=== PATIENT | female | born 1950 | race Caucasian/White ===

== ENCOUNTER 2020-10-26 14:06 | Outpatient (CLI) | payer MEDICARE, OTHER, SELFPAY ==
--- NOTE | 2020-10-26 14:13 | XR_ITS ---
WS: [id number] SCREENING DEXA SCAN [facility] CLINICAL INFORMATION: [id number] COMPARISON: None. FINDINGS: The L1-L4 bone mineral density measures 0.800 g/cm2. This corresponds to a T score score of -3.2 and Z score of -1.4. Left femoral neck bone mineral density measures 0.747 g/cm2. This corresponds to a T score of -2.1 an d Z score of -0.5. Right femoral neck bone mineral density measures 0.819 g/cm2. This corresponds to a T score -1.5of an d Z score of 0.0. Mean femoral neck bone mineral density measures 0.783 g/cm2. This corresponds to a T score of -1.8 an d Z score of -0.2. XR/XR DEXA axial skeleton* [id number] IMPRESSION: Osteoporosis Patient's FRAX calculated 10 year probability for major osteoporotic fracture i s 29.8 % and osteoporotic hip fracture is 8.2%.
== END 2020-10-26 14:07 | disposition home or self-care (01) ==
LOC: RADWPI 14:12
PROVIDERS: PCP Family Medicine; Visit Provider Family Medicine
DX: M81.0 Age-related osteoporosis without current pathological fracture (principal)
CPT/HCPCS: 77080

== ENCOUNTER 2021-01-14 17:35 | Inpatient (IN) | payer MEDICARE, OTHER, SELFPAY ==
[2021-01-14 17:44] VITALS: BP 168/108; PULSE 90; RESP 15; TEMP 36.7; O2SAT 95; BMI 24.0
--- NOTE | 2021-01-14 17:46 | CTR_ITS ---
PROCEDURE INFORMATION: Exam: CT Chest Without Contrast; Diagnostic Exam date and time: 01/14/2021 5:53 PM Age: 70 years old Clinical indication: Injury or trauma; Lower; Blunt trauma (contusions or hematomas); Prior surgery; Surgery date: 6+ months; Surgery type: Pacer; Patient HX: Backwards fall from ladder - denies loc - C/O lbp and pelvic pain; Additional info: Fall/ pain low back /pelvis/ left hip. TECHNIQUE: Imaging protocol: Diagnostic computed tomography of the chest without contrast. Radiation optimization: All CT scans at this facility use at least one of these dose optimization techniques: automated exposure control; mA and/or kV adjustment per patient size (includes targeted exams where dose is matched to clinical indication); or iterative reconstruction. COMPARISON: No relevant prior studies available. RADIATION DOSE METRICS: Total DLP (mGy-cm): 1210.74 FINDINGS: Tubes, catheters and devices: AICD/Pacemaker device is present, and its leads are in appropriate position. Lungs: There several small noncalcified pulmonary nodules measuring up to 5 mm, recommend follow-up. Mild ground-glass opacity within the right posterior upper and lower lobe, question mild contusion. Pleural spaces: Scattered small regions of pleural thickening. Heart: Unremarkable. No cardiomegaly. No pericardial effusion. Aorta: Unremarkable. No aortic aneurysm. Lymph nodes: Unremarkable. No enlarged lymph nodes. Bones/joints: Left posteromedial rib osteophytes. Soft tissues: Unremarkable. IMPRESSION: 1. There several small noncalcified pulmonary nodules measuring up to 5 mm, recommend follow-up. 2. Mild ground-glass opacity within the right posterior upper and lower lobe, question mild contusion. COMMENTS: As per Fleischner Society guidelines for follow-up and management of pulmonary nodules: For patients at low risk (minimal or absent history of smoking and of other known risk factors), recommend follow-up chest CT at 12 months; if unchanged, no further follow-up. For patient at high risk (history of smoking or of other known risk factors), recommend initial follow-up chest CT at 6-12 months, then at 18-24 months if no interval change. PROCEDURE INFORMATION: Exam: CT Abdomen And Pelvis Without Contrast Exam date and time: 01/14/2021 5:53 PM Age: 70 years old Clinical indication: Injury or trauma; Lower; Blunt trauma (contusions or hematomas); Prior surgery; Surgery date: 6+ months; Surgery type: Pacer; Patient HX: Backwards fall from ladder - denies loc - C/O lbp and pelvic pain; Additional info: Fall/ pain low back /pelvis/ left hip. TECHNIQUE: Imaging protocol: Computed tomography of the abdomen and pelvis without contrast. Radiation optimization: All CT scans at this facility use at least one of these dose optimization techniques: automated exposure control; mA and/or kV adjustment per patient size (includes targeted exams where dose is matched to clinical indication); or iterative reconstruction. COMPARISON: No relevant prior studies available. RADIATION DOSE METRICS: Total DLP (mGy-cm): 1210.74 FINDINGS: Liver: Normal. No mass. Gallbladder and bile ducts: Normal. No calcified stones. No ductal dilation. Pancreas: Normal. No ductal dilation. Spleen: Normal. No splenomegaly. Adrenal glands: Normal. No mass. Kidneys and ureters: Normal. No hydronephrosis. Stomach and bowel: Mild colonic diverticulosis without evidence for acute diverticulitis. Appendix: No evidence of appendicitis. Intraperitoneal space: Unremarkable. No free air. No significant fluid collection. Vasculature: Mild to moderate aortic and iliac artery atherosclerotic calcification. Lymph nodes: Unremarkable. No enlarged lymph nodes. Urinary bladder: Unremarkable as visualized. Reproductive: Hysterectomy. Bones/joints: Mild acute L1 vertebral compression fracture with mild vertebral height loss. Degenerative disc and joint disease, with a left paracentral cranial migrating L1-L2 partially mineralized moderate disc extrusion. Soft tissues: Small fat protruding umbilical hernia. CT/CT chest abd pel wo con IMPRESSION: Mild acute L1 vertebral compression fracture with mild vertebral height loss. Radiation Dose CTDIVOL = (mGy): DLP = 1210.74~1210.74 (mGy-cm)
--- NOTE | 2021-01-14 17:46 | CTR_ITS ---
PROCEDURE INFORMATION: Exam: CT Head Without Contrast Exam date and time: 01/14/2021 5:53 PM Age: 70 years old Clinical indication: Injury or trauma; Blunt trauma (contusions or hematomas); Without loss of consciousness; Patient HX: Backwards fall from ladder - denies loc - C/O lbp and pelvic pain; Additional info: Fall off ladder TECHNIQUE: Imaging protocol: Computed tomography of the head without contrast. Radiation optimization: All CT scans at this facility use at least one of these dose optimization techniques: automated exposure control; mA and/or kV adjustment per patient size (includes targeted exams where dose is matched to clinical indication); or iterative reconstruction. COMPARISON: No relevant prior studies available. RADIATION DOSE METRICS: Total DLP (mGy-cm): 753.36 FINDINGS: Brain: Normal. No hemorrhage. Unremarkable white matter. No mass effect. Cerebral ventricles: No ventriculomegaly. Bones/joints: Unremarkable. No acute fracture. Paranasal sinuses: Visualized sinuses are unremarkable. No fluid levels. Mastoid air cells: Visualized mastoid air cells are well aerated. Soft tissues: Unremarkable. CT/CT head wo con* [id number] IMPRESSION: No acute intracranial abnormality. Radiation Dose CTDIVOL = (mGy): DLP = 753.36 (mGy-cm)
--- NOTE | 2021-01-14 17:46 | CTR_ITS ---
PROCEDURE INFORMATION: Exam: CT Cervical Spine Without Contrast Exam date and time: 01/14/2021 5:53 PM Age: 70 years old Clinical indication: Injury or trauma; Blunt trauma; Patient HX: Backwards fall from ladder - denies loc - C/O lbp and pelvic pain; Additional info: Fall off ladder TECHNIQUE: Imaging protocol: Computed tomography images of the cervical spine without contrast. Radiation optimization: All CT scans at this facility use at least one of these dose optimization techniques: automated exposure control; mA and/or kV adjustment per patient size (includes targeted exams where dose is matched to clinical indication); or iterative reconstruction. COMPARISON: No relevant prior studies available. RADIATION DOSE METRICS: Total DLP (mGy-cm): 400.65 FINDINGS: Vertebrae: No acute fracture. Normal alignment. Degenerative change is identified in the spine. There is disc space narrowing and osteophyte formation especially at C5/6 and C6/7. Soft tissues: Unremarkable. Lungs: Lung apices are normal. CT/CT cervical spin wo con* [id number] IMPRESSION: There is no evidence for fracture or facet dislocation. Radiation Dose CTDIVOL = (mGy): DLP = 400.65 (mGy-cm)
--- NOTE | 2021-01-14 17:50 | ED_ITS ---
HPI - Fall General: Chief Complaint: Fall Stated Complaint: BACK PAIN S/P FALL Time Seen by Provider: 01/14/21 17:37 History of Present Illness: HPI Narrative: The patient is a 70-year-old female with past medical history sick sinus syndrome, hypertension, cardiomyopathy and she has a pacemaker. She comes to the ER after a fall off of a ladder from the second step. She says she fell straight backwards and onto her left side landing on her buttocks. She says she felt a pop somewhere and has severe low back and pelvic pain. She does not recall if she hit her head. EMS placed her in a c-collar prior to arrival. She certainly has a distracting injury which is the severe pain to her low back. We will cart her off to CT for imaging. She is refusing pain medications including narcotic, and NSAIDs. MD complaint: fall Fall from: from height (distance) Fall witnessed: yes, by family Place fall occurred: home Loss of consciousness: None Prolonged down time: no Context: tripped/slipped Location of injury: back, abdomen, pelvis and buttocks Severity: severe Severity scale (1-10): 10 Quality: sharp Associated symptoms-after fall: Reports no associated symptoms; Denies abdominal pain, chest pain, confusion, difficulty walking, headache(s), neck pain or numbness Review of Systems General: Reports: 10 or more systems reviewed and unremarkable except in HPI and below Const: Denies: fatigue Eyes: Denies: change in vision, blurry vision or eye redness ENMT: Denies: throat pain, swelling of lips/tongue, ear or mastoid pain or nasal congestion Card: Denies: chest pain, palpitations, irregular heart rhythm, edema, dyspnea on exertion or orthopnea Resp: Denies: dyspnea, productive cough or non-productive cough GI: Denies: abdominal pain, diarrhea or GI cramping : Denies: flank pain, difficulty voiding, urinary frequency or urinary urgency Musc: Reports: back pain and joint pain; Denies: neck pain, extremity pain, joint redness, limited range of motion or muscle weakness Skin/Breast: Denies: rash, pruritus, erythema, skin pain or skin tenderness Neuro: Denies: headache(s), numbness in extremities, weakness in extremities, sensory changes, difficulty walking, dizziness, confusion or Slurred speech present Psych: Denies: anxiety or depression Endo: Denies: polyuria All/Imm: Denies: urticaria, throat swelling or tongue swelling PFSH ED PFSH: Medical History Cardiomyopathy HTN (hypertension) Pacemaker SSS (sick sinus syndrome) Surgical History (Updated 01/14/21 @ 21:57 by Fran Sam MD) History of hysterectomy Family History Other Diabetes Myocardial infarction Social History (Updated 01/14/21 @ 21:58 by Fran Sam MD) Smoking and tobacco status: never smoked Alcohol intake: never Substance/Drug Use: never Physical Exam Const: COMMON NORMALS: average body habitus, patient oriented x3, no limitations, healthy appearing, alert and well nourished GENERAL APPEARANCE: cooperative, comfortable, well kempt, well developed, in distress and anxious ORIENTATION/CONSCIOUSNESS: Yes awake, Yes oriented to person, Yes oriented to place and Yes oriented to time OTHER: in sevvere pain. Declines pain medications HENMT: COMMON NORMALS: normocephalic, external ears normal and Normal external nose present HEAD & SCALP: normal to inspection and normocephalic NOSE: Normal external nose present EXTERNAL EAR: Yes external ears normal MOUTH: Normal oral and palatal mucosa present THROAT: posterior oropharynx normal Eye: COMMON NORMALS: Equal, round and reactive pupils present and EOMs intact bilaterally GENERAL EYE: appearance normal, both eyes and all related structures PUPIL: Yes Equal, round and reactive pupils present Neck/C-Spine: COMMON NORMALS: full ROM, no lymphadenopathy, no meningeal signs and no JVD GENERAL: Yes normal visual inspection Lymph: LYMPHATIC: no lymphadenopathy noted Chest: COMMONS NORMALS: normal inspection of the chest and normal palpation of entire chest wall Resp: COMMON NORMALS: normal respiratory effort, No retractions, No use of accessory muscles, clear to auscultation bilaterally and percussion normal EFFORT & INSPECTION: Yes able to speak in complete sentences AUSCULTATION: clear to auscultation bilaterally PERCUSSION: percussion normal Cardio: COMMON NORMALS: no JVD, regular rate, regular rhythm, S1 normal heart sound present, S2 normal heart sound present and Peripheral pulses 2+ throughout RATE: regular rate RHYTHM: regular rhythm HEART SOUNDS: S1 normal heart sound present and S2 normal heart sound present PERIPHERAL PULSES: Peripheral pulses 2+ throughout GI: COMMON NORMALS: Normal to inspection, nondistended, normoactive bowel sounds present, Soft to palpation, non-tender and no masses INSPECTION: Yes normal to inspection PALPATION: Yes Soft to palpation : COMMON NORMALS: Yes no CVA tenderness BLADDER/KIDNEY EXAM: Yes no CVA tenderness Back/Pelvis: COMMON NORMALS: no CVA tenderness, thoracic and lumbar spine normal to inspection, no thoracic nor lumbar tenderness and thoraco-lumbar ROM normal OTHER: Severe tenderness to bilateral gluteus regions, pelvis, lumbar spine area and lower abdomen. Extremity: COMMON NORMALS: normal to inspection, full ROM, capillary refill normal, no joint enlargement and no pedal edema GENERAL: Yes normal exam except as noted Neuro: COMMON NORMALS: patient oriented x3, CN's II-XII intact bilaterally, moves all extremities, no focal motor deficits, no sensory deficits noted and gait normal SENSORIUM/ORIENTATION: Yes alert, Yes oriented to person, Yes oriented to place and Yes oriented to time MENINGEAL SIGNS: Yes no meningeal signs Psych: COMMON NORMALS: mental status grossly normal, Normal thought process present, cooperative, normal affect and speech normal APPEARANCE: Yes well kempt ATTITUDE: Yes calm SPEECH: Yes normal speech THOUGHT PROCESS: Normal thought process present Skin: COMMON NORMALS: no rashes or lesions noted GENERAL SKIN EXAM: no rashes or lesions noted Course Vital Signs: Vital signs: Vital Signs Temperature 98.1 F 01/14/21 17:44 Pulse Rate 83 01/14/21 23:26 Respiratory Rate 19 H 01/14/21 23:26 Blood Pressure 148/81 01/14/21 23:26 Pulse Oximetry 97 01/14/21 23:26 MDM - Fall MDM Narrative: Medical decision making narrative: This patient has a complicated course. She presented after a fall and had bowel incontinence and episodes of syncope while she has been here. No numbness or weakness in her lower extremities or saddle anesthesia. Normal rectal tone. CT head to tailbone is only positive for a compression fracture of L1. Discussed with spine surgeon at [facility] Dr. Bolton who does not think the compression fracture is likely to cause spinal cord compression and recommends admission here. The patient's troponin then came back elevated at 132 and 2-hour troponin at 252. Discussed with Dr. Rodriguez who recommended medical management and likely non- STEMI. She is also having palpitations which she does have chronically. She is not currently having chest pain in the ER but says sometimes it does come and go when she has been at home and after she got a dose of morphine here she had another episode of chest heaviness related to the administration of the medicine. Discussed with Dr. Murcia who recommended heparin, aspirin, and Plavix 300. He recommended clearing it with trauma surgery prior to administration based on her fall. Discussed with [facility] trauma surgeon Dr. Paez her case and given that she has been scanned and has no acute bleeding he said it is okay to give these medications as long as we monitor her CBC every [address] Sam who accepts to ICU and has been following the case as well. Lab Data: Labs: Lab Results 01/14/21 01/14/21 01/14/21 Range/Units 18:02 19:10 19:22 WBC 12.3 H (4.0-10.0) 10^3/ uL RBC 4.63 (4.1-5.3) 10^6/u L Hgb 13.9 (11.5-15.3) g/dL Hct 45.1 (37.0-47.0) % MCV 97.4 (81-99) fL MCH 30.0 (28.0-34.0) pg MCHC 30.8 (30.0-36.0) g/dL RDW 14.1 (12.1-15.1) % Plt Count 270 (130-400) 10^3/c mm MPV 9.3 (7.4-10.4) fL Neut % (Auto) 78.9 % Lymph % (Auto) 13.7 % [place] % (Auto) 5.8 % Eos % (Auto) 0.4 % Baso % (Auto) 0.5 % Neut # (Auto) 9.66 H (1.8-7.7) 10^3/u L Lymph # (Auto) 1.7 (0.8-4.8) 10^3/u L [place] # (Auto) 0.7 (0.2-0.9) 10^3/u L Eos # (Auto) 0.1 (0.0-0.8) 10^3/u L Baso # (Auto) 0.1 (0.0-0.1) 10^3/u L Nucleated RBC % (a uto) 0 % Nucleated RBCs # 0.0 /100WBC Sodium Cancelled Potassium Cancelled Chloride Cancelled Carbon Dioxide Cancelled Anion Gap Cancelled BUN Cancelled Creatinine Cancelled GFR Calculation Cancelled Glucose Cancelled Calculated Osmolal ity Cancelled Lactate (0.5-2.2) mmol/L Calcium Cancelled Total Bilirubin Cancelled AST Cancelled ALT Cancelled Alkaline Phosphata se Cancelled Creatine Kinase Cancelled Troponin T Baselin e (0-10) ng/L Troponin T 120 Min [place] (0-10) ng/L Delta Troponin T (0-10) ABS# NT-Pro-B Natriuret Pep (0-125) pg/mL Total Protein Cancelled Albumin Cancelled Globulin Cancelled TSH (0.27-4.20) uIU/ mL Urine Color Yellow (Yellow) Urine Appearance Clear (CLEAR) Urine pH 5 (5-7) Ur Specific Gravit y 1.020 (1.005-1.030) Urine Protein Neg (Negative) Urine Glucose (UA) Norm (Normal) Urine Ketones 1+ H (Negative) Urine Blood Trace H (Negative) Urine Nitrate Negative (Negative) Urine Bilirubin Neg (Negative) Urine Urobilinogen Norm (Negative) mg/dL Ur Leukocyte Pat ase Negative (Negative) Urine RBC 0-4 H (0-2) /hpf Urine WBC 0-4 H (0-5) /hpf Ur Squamous Epith Cells 0-4 H (0-5) /hpf Amorphous Sediment 2+ /hpf Urine Bacteria Trace (NONE) /hpf 01/14/21 01/14/21 01/14/21 Range/Units 19:22 21:28 21:28 WBC (4.0-10.0) 10^3/ uL RBC (4.1-5.3) 10^6/u L Hgb (11.5-15.3) g/dL Hct (37.0-47.0) % MCV (81-99) fL MCH (28.0-34.0) pg MCHC (30.0-36.0) g/dL RDW (12.1-15.1) % Plt Count (130-400) 10^3/c mm MPV (7.4-10.4) fL Neut % (Auto) % Lymph % (Auto) % [place] % (Auto) % Eos % (Auto) % Baso % (Auto) % Neut # (Auto) (1.8-7.7) 10^3/u L Lymph # (Auto) (0.8-4.8) 10^3/u L [place] # (Auto) (0.2-0.9) 10^3/u L Eos # (Auto) (0.0-0.8) 10^3/u L Baso # (Auto) (0.0-0.1) 10^3/u L Nucleated RBC % (a uto) % Nucleated RBCs # /100WBC Sodium 135 L Potassium 4.0 Chloride 102 Carbon Dioxide 23 Anion Gap 14.0 BUN 12 Creatinine 0.5 GFR Calculation 122.0 Glucose 121 H Calculated Osmolal ity 281 L Lactate (0.5-2.2) mmol/L Calcium 8.6 Total Bilirubin 0.3 AST 29 ALT 24 Alkaline Phosphata se 109 H Creatine Kinase 155 Troponin T Baselin e 132 H* (0-10) ng/L Troponin T 120 Min [place] 252.1 H (0-10) ng/L Delta Troponin T 120.1 H* (0-10) ABS# NT-Pro-B Natriuret Pep 565 H (0-125) pg/mL Total Protein 6.6 Albumin 3.9 Globulin 2.7 TSH 3.78 (0.27-4.20) uIU/ mL Urine Color (Yellow) Urine Appearance (CLEAR) Urine pH (5-7) Ur Specific Gravit y (1.005-1.030) Urine Protein (Negative) Urine Glucose (UA) (Normal) Urine Ketones (Negative) Urine Blood (Negative) Urine Nitrate (Negative) Urine Bilirubin (Negative) Urine Urobilinogen (Negative) mg/dL Ur Leukocyte Pat ase (Negative) Urine RBC (0-2) /hpf Urine WBC (0-5) /hpf Ur Squamous Epith Cells (0-5) /hpf Amorphous Sediment /hpf Urine Bacteria (NONE) /hpf 01/14/21 Range/Units 21:56 WBC (4.0-10.0) 10^3/ uL RBC (4.1-5.3) 10^6/u L Hgb (11.5-15.3) g/dL Hct (37.0-47.0) % MCV (81-99) fL MCH (28.0-34.0) pg MCHC (30.0-36.0) g/dL RDW (12.1-15.1) % Plt Count (130-400) 10^3/c mm MPV (7.4-10.4) fL Neut % (Auto) % Lymph % (Auto) % [place] % (Auto) % Eos % (Auto) % Baso % (Auto) % Neut # (Auto) (1.8-7.7) 10^3/u L Lymph # (Auto) (0.8-4.8) 10^3/u L [place] # (Auto) (0.2-0.9) 10^3/u L Eos # (Auto) (0.0-0.8) 10^3/u L Baso # (Auto) (0.0-0.1) 10^3/u L Nucleated RBC % (a uto) % Nucleated RBCs # /100WBC Sodium Potassium Chloride Carbon Dioxide Anion Gap BUN Creatinine GFR Calculation Glucose Calculated Osmolal ity Lactate 1.6 (0.5-2.2) mmol/L Calcium Total Bilirubin AST ALT Alkaline Phosphata se Creatine Kinase Troponin T Baselin e (0-10) ng/L Troponin T 120 Min [place] (0-10) ng/L Delta Troponin T (0-10) ABS# NT-Pro-B Natriuret Pep (0-125) pg/mL Total Protein Albumin Globulin TSH (0.27-4.20) uIU/ mL Urine Color (Yellow) Urine Appearance (CLEAR) Urine pH (5-7) Ur Specific Gravit y (1.005-1.030) Urine Protein (Negative) Urine Glucose (UA) (Normal) Urine Ketones (Negative) Urine Blood (Negative) Urine Nitrate (Negative) Urine Bilirubin (Negative) Urine Urobilinogen (Negative) mg/dL Ur Leukocyte Pat ase (Negative) Urine RBC (0-2) /hpf Urine WBC (0-5) /hpf Ur Squamous Epith Cells (0-5) /hpf Amorphous Sediment /hpf Urine Bacteria (NONE) /hpf Discharge Plan Discharge Patient Disposition: Admitted As Inpatient Admit Provider: Fran Sam Clinical Impression: NSTEMI (non-ST elevated myocardial infarction), Compression fracture Condition: Stable Coding Level of Care Code ED Real Estate Clerk for Chg Fwd Exam Comprehensive
[2021-01-14 18:37] VITALS: RESP 20
--- NOTE | 2021-01-14 18:44 | CTR_ITS ---
PROCEDURE INFORMATION: Exam: CT Lumbar Spine Without Contrast Exam date and time: 01/14/2021 6:44 PM Age: 70 years old Clinical indication: Injury or trauma; Blunt trauma (contusions or hematomas); Patient HX: Backwards fall from ladder - denies loc - C/O lbp and pelvic pain; Additional info: Fall/ back pain TECHNIQUE: Imaging protocol: Computed tomography images of the lumbar spine without contrast. Radiation optimization: All CT scans at this facility use at least one of these dose optimization techniques: automated exposure control; mA and/or kV adjustment per patient size (includes targeted exams where dose is matched to clinical indication); or iterative reconstruction. COMPARISON: No relevant prior studies available. RADIATION DOSE METRICS: Total DLP (mGy-cm): 8.19 FINDINGS: Vertebrae: Mild acute L1 vertebral compression fracture with mild vertebral height loss. Straightened lumbar curvature. Minimal soft lumbar degenerative alignment abnormalities. Discs/Spinal canal/Neural foramina: Moderate left paracentral partially mineralized L1-L2 cranial migrating disc extrusion with moderate left subarticular narrowing. L3-L5 disc bulges with mild stenosis. Soft tissues: Unremarkable. CT/CT lumbar spine wo con* [id number] IMPRESSION: 1. Mild acute L1 vertebral compression fracture with mild vertebral height loss. 2. Degenerative disc and joint disease, with a left paracentral cranial migrating L1-L2 partially mineralized moderate disc extrusion. Radiation Dose CTDIVOL = (mGy): DLP = 8.19 (mGy-cm)
[2021-01-14] MEDS: sodium chloride 0.9% 1,000 ML 999 ML IV (18:57)
--- NOTE | 2021-01-14 18:57 | ECG_ITS ---
[facility] Test Date: 2021-01-14 Pat Name: Jacquie Elliott Department: Room: Gender: Female Facilities Flight Check Pilot: : 1950 Requested By: Robert Shelley Order Number: [id number] Addie MD: Hortencia Murcia M.D. Measurements Intervals [place] Rate: 94 P: 65 [place]: 209 QRS: 113 QRSD: 154 T: 35 QT: 412 QTc: 517 Interpretive Statements SINUS RHYTHM WITH FREQUENT VENTRICULAR PREMATURE COMPLEXES WITH OCCASIONAL SUPRAVENTRICULAR PREMATURE COMPLEXES POSSIBLE LEFT ATRIAL ENLARGEMENT [-0.1mV P WAVE IN V1/V2] RIGHT BUNDLE BRANCH BLOCK [120+ ms QRS DURATION, UPRIGHT V1, 40+ ms S IN I/aVL/V4/V5/V6] LEFT POSTERIOR FASCICULAR BLOCK [QRS AXIS > 109, INFERIOR Q] No previous ECG available for comparison Electronically Signed On 01-14-2021 19:39:31 LOOSELEAF BINDER COVERER by Hortencia Murcia M.D. [id number]
[2021-01-14 19:35] LABS: Basophils # 0.1 10^3/uL (0.0-0.1); Basophils % 0.5 %; Eosinophils # 0.1 10^3/uL (0.0-0.8); Eosinophils % 0.4 %; Hematocrit 45.1 % (37.0-47.0); Hemoglobin 13.9 g/dL (11.5-15.3); Lymphocytes # 1.7 10^3/uL (0.8-4.8); Lymphocytes % 13.7 %; Mean Corpuscular HGB Conc 30.8 g/dL (30.0-36.0); Mean Corpuscular Volume 97.4 fL (81-99); Mean Platelet Volume 9.3 fL (7.4-10.4); Monocytes # 0.7 10^3/uL (0.2-0.9); Monocytes % 5.8 %; Neutrophils # 9.66 10^3/uL (1.8-7.7); Neutrophils % 78.9 %; Nucleated Red Blood Cells % 0 %; Platelet Count 270 10^3/cmm (130-400); Red Blood Count 4.63 10^6/uL (4.1-5.3); Red Cell Distribution Width 14.1 % (12.1-15.1); White Blood Count 12.3 10^3/uL (4.0-10.0)
[2021-01-14 19:36] VITALS: BP 166/115; PULSE 93; RESP 15; O2SAT 95
[2021-01-14 19:54] LABS: Add Urine Microscopic? YES; Bilirubin Urine Neg (Negative); Blood Urine Trace (Negative); Glucose Urine UA Norm (Normal); Ketones Urine 1+ (Negative); Leukocyte Esterase Urine Negative (Negative); Nitrate Urine Negative (Negative); Protein Urine Neg (Negative); Urine Appearance Clear (CLEAR); Urine Color Yellow (Yellow); Urobilinogen Urine Norm (Negative); pH Urine 5 (5-7)
[2021-01-14 19:55] LABS: Add Urine Culture? No; Amorphous Sediment Urine 2+ /hpf; Bacteria Urine TRACE /hpf; RBC Urine 0-4 /hpf (0-2); Squamous Epithelial Cell Urine 0-4 /hpf (0-5); WBC Urine 0-4 /hpf (0-5)
[2021-01-14 20:19] LABS: Troponin(5th) Baseline 132 ng/L (0-10)
--- NOTE | 2021-01-14 20:57 | ECG_ITS ---
[facility] Test Date: 2021-01-14 Pat Name: Jacquie Elliott Department: Room: Gender: Female Correspondence Dictator: : 1950 Requested By: Robert Shelley Order Number: [id number] Addie MD: Hortencia Murcia M.D. Measurements Intervals [place] Rate: 80 P: 72 [place]: 187 QRS: 111 QRSD: 162 T: 20 QT: 467 QTc: 539 Interpretive Statements SINUS RHYTHM RIGHT BUNDLE BRANCH BLOCK [120+ ms QRS DURATION, UPRIGHT V1, 40+ ms S IN I/aVL/V4/V5/V6] LEFT POSTERIOR FASCICULAR BLOCK [QRS AXIS > 109, INFERIOR Q] Compared to ECG 01/14/2021 19:11:13 Ventricular premature complex(es) no longer present Electronically Signed On 01-15-2021 22:44:48 CDT by Hortencia Murcia M.D. [id number]
[2021-01-14 21:17] VITALS: BP 152/87; PULSE 96; RESP 18; O2SAT 95
[2021-01-14 21:26] VITALS: RESP 22
[2021-01-14] MEDS: morphine 4 mg/mL SDV 1 mL 0.5 MG IVP (21:26)
--- NOTE | 2021-01-14 21:51 | PM.HP ---
Providers/Chief Complaint Primary Care Provider: Reddy Szymanski MD Chief Complaint: BACK PAIN S/P FALL History of Present Illness Jacquie Elliott is a 70 year old female with a past medical history of mild idiopathic cardiomyopathy echo on 2018 showed an EF of 55 to 60%, had a pacemaker placed in 1980 for sick sinus syndrome, last generator change was 05/23/2016, she was in the , has moved around the country a lot, currently settled in [place], she has been doing well, is fairly physically active, is actually renovating her kitchen. This evening when she was renovating her kitchen, she was up on the ladder, about on the second step, 2 feet off the ground, when she missed the first step going down, and fell primarily on her left hip she tells me, she denies any significant head trauma or any trauma anywhere else, her pain is primary centered in the left hip and the lower back, immediately upon falling, she had paresthesias down her bilateral lower extremities, was able to move her lower extremities, no saddle anesthesia, no perianal anesthesia, she thought she might have had urinary incontinence, but her checked and she did not, she spent roughly 30 minutes on the floor, which was the subfloor, before EMS arrived, and the emergency room she had extensive CTs, which did show mild acute L1 vertebral compression fracture with mild vertebral height loss, the ER physician checked for anal tone which is good, patient did have 2 bowel movements, which ER physician was concerned of, so the case was discussed with a spinal surgeon and they recommended that this is a L1 vertebral compression fracture, no significant evidence of spinal cord damage. During CT she did have 2 episodes of passing out. She is currently declining any pain medication, she is worried about the adverse side effects. Patient currently is alert oriented x3, answers most questions appropriately, however does have episodes of memory lapses, episodes of confusion, but follows all commands, no current urinary or bowel incontinence, no saddle or perianal anesthesia, she tells me that she feels weak all over, during my examination she has severe episodes of back spasm lasting for over a minute, it took me quite a long time to convince her to try 0.5 mg of morphine. In addition her troponin came back at 132, the rest of her blood work is pending at this point, EKG did not show any acute ST-T wave changes, ER physician is contacting Dr. Rodriguez Review of Systems Const: Denies: fever(s), chills, fatigue or malaise Eyes: Denies: change in vision or blurry vision ENMT: Denies: nasal congestion Card: Reports: syncope; Denies: chest pain, palpitations, edema or pre-syncope Resp: Denies: dyspnea, productive cough, non-productive cough or wheezing GI: Denies: abdominal pain, nausea, vomiting, hematemesis, diarrhea, constipation, hematochezia or melena : Denies: flank pain, dysuria or urinary frequency Musc: Reports: neck pain, back pain, extremity pain, joint pain and muscle weakness Skin/Breast: Denies: rash Neuro: Reports: headache(s), numbness in extremities, dizziness and confusion; Denies: vertigo Psych: Denies: anxiety or depression Endo: Denies: polyuria or polydipsia Medications/Allergies Home Medications Medication Instructions Recorded Confirmed Last Taken Type aspirin 81 mg tablet,delayed 81 mg PO .PRN tab 07/27/20 Unknown History release atenolol 25 mg tablet 25 mg PO DAILY 07/27/20 Unknown History cholecalciferol (vitamin D3) 1,250 PO 12/02/20 Unknown History mcg (50,000 unit) capsule Allergies Allergy/AdvReac Type Severity Reaction Status Date / Time ciprofloxacin Allergy Unknown Verified 12/02/20 10:55 codeine Allergy Unknown Verified 12/02/20 10:55 doxycycline Allergy Unknown Verified 12/02/20 10:55 sulfamethoxazole Allergy Unknown Verified 12/02/20 10:55 [From Bactrim] trimethoprim [From Bactrim] Allergy Unknown Verified 12/02/20 10:55 PFSH Acute PFSH: Medical History Cardiomyopathy HTN (hypertension) Pacemaker SSS (sick sinus syndrome) Surgical History (Updated 01/14/21 @ 21:57 by Fran Sam MD) History of hysterectomy Family History Other Diabetes Myocardial infarction Social History (Updated 01/14/21 @ 21:58 by Fran Sam MD) Smoking and tobacco status: never smoked Alcohol intake: never Substance/Drug Use: never Vitals/I&O/Wt Last Vital Signs Temp 98.1 F 01/14/21 17:44 Pulse 96 01/14/21 21:17 Resp 22 H 01/14/21 21:26 BP 152/87 01/14/21 21:17 Pulse Ox 95 01/14/21 21:17 Weight last 48 hrs Weight 63.503 kg Physical Exam Const: COMMON NORMALS: no acute distress and patient oriented x3 GENERAL APPEARANCE: cooperative and comfortable HENMT: COMMON NORMALS: normocephalic HEAD & SCALP: normocephalic Eye: COMMON NORMALS: Equal, round and reactive pupils present and EOMs intact bilaterally GENERAL EYE: appearance normal, both eyes and all related structures PUPIL: Yes Equal, round and reactive pupils present OTHER: Does have saccadic eye movements Neck/C-Spine: COMMON NORMALS: full ROM, no lymphadenopathy, no JVD and Thyroid normal THYROID: Thyroid normal Lymph: LYMPHATIC: no lymphadenopathy noted Resp: COMMON NORMALS: normal respiratory effort, No retractions, No use of accessory muscles and clear to auscultation bilaterally AUSCULTATION: clear to auscultation bilaterally Cardio: COMMON NORMALS: no JVD, regular rate, regular rhythm, S1 normal heart sound present, S2 normal heart sound present, No gallops present (Cardio), No clicks present (Cardio) and No murmurs present (Cardio) RATE: regular rate RHYTHM: regular rhythm HEART SOUNDS: S1 normal heart sound present and S2 normal heart sound present GI: COMMON NORMALS: Normal to inspection, nondistended, normoactive bowel sounds present, Soft to palpation, non-tender and No hepatosplenomegaly present PALPATION: Yes Soft to palpation and Yes No hepatosplenomegaly present Back/Pelvis: COMMON NORMALS: thoracic and lumbar spine normal to inspection THORACIC SPINE/UPPER BACK: Yes thoracic spinal tenderness, Yes paraspinal muscle tenderness and Yes paraspinal muscle spasm LUMBAR SPINE/LOWER BACK: Yes ROM limited, Yes pain with ROM, Yes lumbar spinal tenderness, Yes paraspinal muscle tenderness and Yes paraspinal muscle spasm SACROILIAC JOINTS: Yes SI joint(s) abnormal SI joint details: tender to palpation Extremity: COMMON NORMALS: normal to inspection, full ROM and no pedal edema Neuro: COMMON NORMALS: patient oriented x3, CN's II-XII intact bilaterally, moves all extremities and no focal motor deficits Psych: COMMON NORMALS: mental status grossly normal, Normal thought process present and cooperative THOUGHT PROCESS: Normal thought process present Urinary Catheter Management^: Rodriguez: Cath Placed During This Visit: yes Urinary Catheter Date of Insertion: 01/14/21 Urinary Catheter Time of Insertion: 19:17 Data : 01/14/21 18:02 01/14/21 21:28 A&P Assessment and plan (1) NSTEMI (non-ST elevated myocardial infarction): -No active complaints of chest pain -She denies falling on her chest -Baseline troponin I 132, EKG no acute ST-T wave changes Plan: -Aspirin, statin, therapeutic Lovenox -Trend troponins, serial EKGs, telemetry monitoring -Order cardiac echocardiogram -Discussed with cardiology based on clinical progress, troponins, EKGs, telemetry Status: Acute (2) Compression fracture of L1 lumbar vertebra: -ER physician checked anal tone, good anal tone, no saddle or perianal anesthesia, has strength bilaterally, but just has generalized weakness as she is in pain all over, no urinary incontinence, did have 2 large bowel movements, which were not considered bowel incontinence, discussed with spinal surgeon conservative management for now, no evidence of spinal cord injury -Can consider back brace -Pain control -Patient wants to minimize pain medications, as she suffers hallucinations for with a lot of medications -After long discussion she agrees to try 0.5 mg of morphine -We will also start her on intranasal calcitonin -PT OT Status: Acute (3) Fall: Likely has muscle spasms, musculoskeletal pain, lumbosacral pain related to her fall We will try to encourage patient to taking pain medication PT OT Status: Acute (4) Back pain: Status: Acute (5) Concussion: -During my examination she did have saccadic eye movements, answers most questions appropriate, follows commands, but does have memory lapses, does have episodes of confusion -Likely suffering early concussion, highly suspicious she did have head trauma although she denies it, neurochecks, aspiration precautions, seizure precautions keep head of bed elevated Status: Acute (6) Syncope: -2 episodes of syncope in the ER -Likely related to significant pain, as patient was refusing to take pain medication, sympathetic nervous system over activation -CT head negative for acute bleed -But will follow troponins, EKGs, telemetry, echo, carotid artery ultrasound Status: Acute Attestations Medical Necessity Statement*: Patient requires hospitalization, outpatient with observation, for fall, concussion, NSTEMI, L1 vertebral compression fracture Coding Level of Care Code Acute [facility] Diagnoses NSTEMI (non-ST elevated myocardial infarction) I21.4 Compression fracture of L1 lumbar vertebra S32.010A Fall W19.XXXA Back pain M54.9 Concussion S06.0X9A Syncope R55
[2021-01-14 22:10] LABS: Troponin 5 2HR 252.1 ng/L (0-10); Troponin 5 2HR Delta 120.1 ABS# (0-10)
[2021-01-14 22:17] LABS: Alanine Aminotransferase 24 U/L (0-33); Albumin Level 3.9 g/dL (3.5-5.2); Alkaline Phosphatase 109 IU/L (35-105); Aspartate Amino Transferase 29 U/L (0-32); Blood Urea Nitrogen 12 mg/dL (8-23); Calcium 8.6 mg/dL (8.5-10.5); Carbon Dioxide 23 mmol/L (22-29); Chloride 102 mmol/L (98-107); Creatine Phosphokinase 155 U/L (26-192); Globulin 2.7 g/dL (1.3-4.6); Glucose 121 mg/dL (65-115); NT Pro B Type Natriuretic Pept 565 pg/mL (0-125); Osmolality Calculated 281 mOsm/kg (285-295); Sodium 135 mmol/L (136-145); Thyroid Stimulating Hormone 3.78 uIU/mL (0.27-4.20); Total Bilirubin 0.3 mg/dL (0.15-1.2); Total Protein 6.6 g/dL (6.6-8.7)
[2021-01-14 22:21] LABS: Lactate (Lactic Acid level) 1.6 mmol/L (0.5-2.2)
[2021-01-14] MEDS: clopidogrel 300 mg Tablet PO (22:57)
[2021-01-14] MEDS: aspirin 325 mg Tablet PO (22:59)
[2021-01-14 23:26] VITALS: BP 148/81; PULSE 83; RESP 19; O2SAT 97
[2021-01-14] MEDS: heparin drip 25,000 UNIT/500 ML PREMIX 18 UNIT IV (23:35)
[2021-01-15] VITALS (198 sets, daily range): BP systolic 101–164; BP diastolic 51–106; PULSE 55–94; RESP 0–26; TEMP 36.5–37.4; O2SAT 90–99
[2021-01-15 00:06] LABS: INR 1.02 (0.8-1.2)
[2021-01-15 00:07] LABS: Partial Thromboplastin Time 30.3 SECONDS (23.9-36.7)
--- NOTE | 2021-01-15 01:21 | USCV_ITS ---
DemetriDc becerraley Age: 70 Gender: F : 1950 Exam Date: 01/15/2021 08:10 Ordering Phys: Fran Sam MD Technologist: Gely Marley [place] [facility] [place]: [place] Risk Factors: Previous Vascular Surgery: Right Brachial BP: / Left Brachial BP: / Right Left Velocity (cm/s) Spectral Plaque Velocity (cm/s) Spectral Plaque Syst/Diast Broadening Syst/Diast Broadening 66.00/ 17.10 Prox CCA 64.10 / 18.80 58.70/ 18.70 Mid CCA 56.40 / 18.80 58.70/ 16.60 Distal CCA 56.70 / 19.40 92.60/ 24.30 Prox ICA 50.40 / 20.50 77.10/ 28.00 Mid ICA 66.30 / 28.30 47.50/ 18.00 Distal ICA 68.30 / 23.30 113.60 ECA 96.60 1.40 ICA/CCA 1.07 Antegrade Vertebral Antegrade 40.40/ 14.00 cm/s 42.70/ 9.30 cm/s Tri Subclavian Tri 102.5 134.2 0 0 FINDINGS Moderate clumps of plaques at the bifurcations bilaterally Normal thickening in the common carotid arteries bilaterally Antegrade flow in the vertebral arteries bilaterally Normal Doppler flow velocities in the external and subclavian arteries bilaterally CONCLUSIONS Moderate plaques at the bifurcations bilaterally, consistent with less than 50% stenosis. Intimal thickening in the common carotid arteries bilaterally Dr Hortencia Murcia MD [facility] (Electronically Signed) Final Date: 15 January 2021 22:30 S
[2021-01-15] MEDS: dextrose 5%-sod chloride 0.45% 1,000 ML 75 ML IV ×2 (01:59→21:53)
[2021-01-15 04:27] LABS: Troponin 5 6HR Delta 75.6 ng/L (0-12)
[2021-01-15 04:28] LABS: Troponin 5 6HR 207.6 ng/L (0-10)
[2021-01-15 06:05] LABS: Basophils % 0.3 %; Eosinophils % 0.2 %; Hematocrit 40.3 % (37.0-47.0); Hemoglobin 13.2 g/dL (11.5-15.3); Lymphocytes # 1.8 10^3/uL (0.8-4.8); Lymphocytes % 18.2 %; Mean Corpuscular HGB Conc 32.8 g/dL (30.0-36.0); Mean Corpuscular Hemoglobin 29.5 pg (28.0-34.0); Mean Corpuscular Volume 90.2 fL (81-99); Mean Platelet Volume 9.5 fL (7.4-10.4); Monocytes # 0.7 10^3/uL (0.2-0.9); Monocytes % 6.6 %; Neutrophils # 7.35 10^3/uL (1.8-7.7); Neutrophils % 74.2 %; Nucleated Red Blood Cells % 0 %; Platelet Count 270 10^3/cmm (130-400); Red Blood Count 4.47 10^6/uL (4.1-5.3); Red Cell Distribution Width 14.1 % (12.1-15.1); White Blood Count 9.9 10^3/uL (4.0-10.0)
--- NOTE | 2021-01-15 06:12 | PC.NURSE ---
pt arrived from ER 0100. pt c/o pain, but refuses pain meds. asked multiple times about pain medicine and pt continues to refuse pain meds. pt refuses most prescribed meds and is even questioning the heparin gtt and d5 1/2ns fluids. pt states she sees swirly lines when she closes her eyes and every thing is jumping around and is very scary. pt states it must be whatever is in these drugs that you have running in me. i asked pt if she wanted me to turn off the medication, but she said no.
[2021-01-15 06:33] LABS: Alanine Aminotransferase 21 U/L (0-33); Albumin Level 3.7 g/dL (3.5-5.2); Alkaline Phosphatase 102 IU/L (35-105); Anion Gap 13.8 (5-19); Aspartate Amino Transferase 27 U/L (0-32); Blood Urea Nitrogen 9 mg/dL (8-23); Calcium 8.5 mg/dL (8.5-10.5); Carbon Dioxide 23 mmol/L (22-29); Chloride 105 mmol/L (98-107); Globulin 2.5 g/dL (1.3-4.6); Glucose 121 mg/dL (65-115); Magnesium 1.9 mg/dL (1.7-2.3); Osmolality Calculated 286 mOsm/kg (285-295); Phosphorus 2.6 mg/dL (2.5-4.5); Potassium 3.8 mmol/L (3.5-5.1); Sodium 138 mmol/L (136-145); Total Bilirubin 0.4 mg/dL (0.15-1.2); Total Protein 6.2 g/dL (6.6-8.7)
[2021-01-15 06:40] LABS: INR 0.96 (0.8-1.2)
[2021-01-15] MEDS: morphine 4 mg/mL SDV 1 mL 0.5 MG IVP ×2 (07:04→09:53)
[2021-01-15 07:41] LABS: Creatine Phosphokinase 162 U/L (26-192); NT Pro B Type Natriuretic Pept 1749 pg/mL (0-125)
--- NOTE | 2021-01-15 08:33 | P.CONIM_ITS ---
Providers/Reason For Consult Consulting Physican/Specialty*: THAO Murcia MD/cardiology Reason for Consult*: Patient with recent fall/syncope/ troponin T Attending Physician: Fran Sma MD Primary Care Provider: Reddy Szymanski MD History of Present Illness History of Present Illness Jacquie Elliott is a 70 year old female with a history of sick sinus syndrome, status post permanent pacer implantation in 1980, a revision in 2015, essential benign hypertension and mild cardiomyopathy, is admitted to the hospital through the emergency room where she presented with complaints of pain in the back and left hip. Patient apparently has been in her baseline state of health up until yesterday afternoon while she was working on a ladder, remodeling her kitchen, missed the last step of the ladder and fell on her left hip. She had a tingling and numbness of both leg. In the emergency room she had extensive x-rays and CAT scans. She was found to have compression fracture of the L1 vertebrae. Once neurosurgery was consulted. Conservative management was advised. Patient was found to have elevated troponin T in the emergency room. She was found to have a 2-hour delta of 120 and 6-hour delta of 25. According the patient, she has been having episodes of sharp pains in the chest ever since the fall. The pain radiates to the back between the shoulder blades. Last for few seconds and then goes away by itself. She had several of these episodes, since coming to the hospital. Patient has no history for coronary disease, myocardial infarction or congestive heart failure. She is known to have sick sinus syndrome. She also had some form of tachyarrhythmia. Sometime in the past, she had attempted RF ablation. Based on the patient's history, the tachycardia could not be induced in the lab and for that reason, she was left alone. She has been taking atenolol for many years and that seems to have helped her arrhythmias. She also is known to have elevated blood pressure. She has a history of idiopathic cardiomyopathy but the most recent echocardiogram done in 2019 revealed normal LV ejection fraction. Patient had a permanent pacer implantation in 1980. Since then, she had several revisions. The most recent revision was done in 2015. This is being followed up with a [facility]. Her pacemaker function was found to be appropriate. She has a [employer] device. Her father of myocardial infarction in his late 70s. No other relevant family history. Patient denies any smoking abuse or alcohol abuse. Review of Systems Narrative: CONSTITUTIONAL: No fever or chills. EYES: No blurring of vision or other visual disturbances lately. ENT: No hoarseness of voice, auditory disturbances or sore throat. CARDIOVASCULAR: As mentioned above. RESPIRATORY: No significant cough. GASTROINTESTINAL: No hematemesis or melena. GENITOURINARY: No dysuria or hematuria. INTEGUMENTARY: No skin rashes or history of skin cancer. NEURO: No transient ischemic attacks or amaurosis. PSYCHIATRIC: No history of psychosis or major depression. HEMATOLOGIC: No bleeding disorders or significant anemia. ENDOCRINE: No history of polyuria or polydipsia. MUSCULOSKELETAL: Back pain and hip pain ALLERGY/IMMUNOLOGY: As mentioned above. Meds/Allergies Home Medications and Allergies Home Medications Medication Instructions Recorded Confirmed Last Taken Type atenolol 25 mg tablet 25 mg PO DAILY@06 07/27/20 01/15/21 Unknown History cholecalciferol (vitamin D3) 1,250 1,250 mcg PO Q30D 12/02/20 01/15/21 Unknown History mcg (50,000 unit) capsule Allergies Allergy/AdvReac Type Severity Reaction Status Date / Time ciprofloxacin Allergy Unknown Verified 01/15/21 10:34 codeine Allergy Unknown Verified 01/15/21 10:34 doxycycline Allergy Unknown Verified 01/15/21 10:34 sulfamethoxazole Allergy Unknown Verified 01/15/21 10:34 [From Bactrim] trimethoprim [From Bactrim] Allergy Unknown Verified 01/15/21 10:34 Current Medications Current Medications Generic Name Dose Route Start Last Admin Trade Name Freq PRN Reason Stop Dose Admin Atorvastatin Calcium 40 mg 01/15/21 01:30 01/15/21 01:58 Atorvastatin 40 Mg Tablet PO Not Given BEDTIME MIKE Heparin Sodium/Sodium Chloride 25,000 unit in 500 mls @ 0 mls/hr 01/14/21 23:00 01/14/21 23:35 Heparin Drip IV 14.17 unit/kg/hr .Q0M MIKE 18 mls/hr Administration Protocol Per Protocol Dextrose/Sodium Chloride 1,000 mls @ 75 mls/hr 01/15/21 01:21 01/15/21 01:59 Dextrose 5%-Sod Chloride 0.45% IV 75 mls/hr .[id number] MIKE Administration Morphine Sulfate 0.5 mg 01/15/21 01:21 01/15/21 07:04 Morphine 4 Mg/Ml Sdv 1 Ml IVP 0.5 mg Q1H PRN Administration pain PFSH Acute PFSH: Medical History Cardiomyopathy HTN (hypertension) Pacemaker SSS (sick sinus syndrome) Surgical History History of hysterectomy Family History (Updated 01/15/21 @ 13:21 by Hortencia Murcia MD) Father CAD (coronary artery disease) of myocardial infarction his 70s Other Diabetes Myocardial infarction Social History Smoking and tobacco status: never smoked Alcohol intake: never Substance/Drug Use: never Vitals/I&O/Wt Last Vital Signs Temp 98.2 F 01/15/21 05:45 Pulse 77 01/15/21 06:00 Resp 15 01/15/21 04:35 BP 151/80 01/15/21 04:35 Pulse Ox 96 01/15/21 04:35 01/14/21 01/15/21 01/15/21 21:59 06:59 14:59 Intake Total Output Total Balance Weight last 48 hrs Weight 140 lb Physical Exam Narrative: EXAM NARRATIVE: GENERAL: The patient is alert and oriented times three. Not in any acute distress. HEENT: No significant pallor, icterus or lymphadenopathy. The pupils are symmetrical. Oral cavity: There are no mucous membrane lesions. Funduscopic examination: The fundus is not visualized NECK: Trachea appears to be central. No masses noted. No JVD or thyromegaly appreciated. No carotid bruit. RESPIRATORY: Chest is symmetrical. No intercostals muscle retraction or any accessory muscle activation. Diffuse chest wall tenderness. Breath sounds are heard bilaterally. No rales or rhonchi heard. No evidence of any consolidation. BREASTS: Deferred. HEART: The PMI is in the fifth left inter costal space just inside the midclavicular line. No palpable precordial events. S1 and S2 are normal. No S3 or S4 heard. No pericardial rub or any click heard. ABDOMEN: No vessel pulsations or distention. No tenderness. No organomegaly iqra reciated. No abdominal bruit. Bowel sounds are normally heard. : Deferred. RECTAL: Deferred. LYMPHATIC: No lymphadenopathy noted in the neck or groin. EXTREMITIES: No edema or cyanosis. No clubbing. The pulses are symmetrical bilaterally. The radial, femoral, dorsalis pedis and the posterior tibial pulses are palpated and found to be in good volume and amplitude. MUSCULOSKELETAL: No acute joint deformities or swelling. Back pain and left hip pain as mentioned above SKIN: There are no significant scars or skin rash noted. NEUROPSYCHIATRIC: The patient is alert and oriented x3. Appears to be in a good mood. The higher functions are grossly within normal limits. No tremors or rigidity noted. Urinary Catheter Management^: Rodriguez: Cath Placed During This Visit: yes Reason for Continuing Indwelling Catheter: Accurate Measurement of Urinary Output in Critically Ill Patients Urinary Catheter Date of Insertion: 01/14/21 Urinary Catheter Time of Insertion: 19:17 Data Labs: Other Labs: Laboratory Last Values WBC 9.9 10^3/uL (4.0- 10.0) 01/15/21 05:37 RBC 4.47 10^6/uL (4.1 -5.3) 01/15/21 05:37 Hgb 13.2 g/dL (11.5-1 5.3) 01/15/21 05:37 Hct 40.3 % (37.0-47.0 ) 01/15/21 05:37 MCV 90.2 fL (81-99) D 01/15/21 05:37 MCH 29.5 pg (28.0-34. 0) 01/15/21 05:37 MCHC 32.8 g/dL (30.0-3 6.0) D 01/15/21 05:37 RDW 14.1 % (12.1-15.1 ) 01/15/21 05:37 Plt Count 270 10^3/cmm (130 -400) 01/15/21 05:37 MPV 9.5 fL (7.4-10.4) 01/15/21 05:37 Neut % (Auto) 74.2 % 01/15/21 05:37 Lymph % (Auto) 18.2 % 01/15/21 05:37 [place] % (Auto) 6.6 % 01/15/21 05:37 Eos % (Auto) 0.2 % 01/15/21 05:37 Baso % (Auto) 0.3 % 01/15/21 05:37 Neut # (Auto) 7.35 10^3/uL (1.8 -7.7) 01/15/21 05:37 Lymph # (Auto) 1.8 10^3/uL (0.8- 4.8) 01/15/21 05:37 [place] # (Auto) 0.7 10^3/uL (0.2- 0.9) 01/15/21 05:37 Eos # (Auto) 0.0 10^3/uL (0.0- 0.8) 01/15/21 05:37 Baso # (Auto) 0.0 10^3/uL (0.0- 0.1) 01/15/21 05:37 Nucleated RBC % (a uto) 0 % 01/15/21 05:37 Nucleated RBCs # 0.0 /100WBC 01/15/21 05:37 PT 13.00 SECONDS (12 .1-14.9) 01/15/21 05:37 INR 0.96 (0.8-1.2) 01/15/21 05:37 APTT 30.3 SECONDS (23. 9-36.7) 01/14/21 23:40 Sodium 138 mmol/L (136-1 45) 01/15/21 05:37 Potassium 3.8 mmol/L (3.5-5 .1) 01/15/21 05:37 Chloride 105 mmol/L (98-10 7) 01/15/21 05:37 Carbon Dioxide 23 mmol/L (22-29) 01/15/21 05:37 Anion Gap 13.8 (5-19) 01/15/21 05:37 BUN 9 mg/dL (8-23) 01/15/21 05:37 Creatinine 0.5 mg/dL (0.5-0. 9) 01/15/21 05:37 GFR Calculation 122.0 mL/min (90- 130) 01/15/21 05:37 Glucose 121 mg/dL (65-115 ) H 01/15/21 05:37 Calculated Osmolal ity 286 mOsm/kg (285- 295) 01/15/21 05:37 Lactate 1.6 mmol/L (0.5-2 .2) 01/14/21 21:56 Calcium 8.5 mg/dL (8.5-10 .5) 01/15/21 05:37 Phosphorus 2.6 mg/dL (2.5-4. 5) 01/15/21 05:37 Magnesium 1.9 mg/dL (1.7-2. 3) 01/15/21 05:37 Total Bilirubin 0.4 mg/dL (0.15-1 .2) 01/15/21 05:37 AST 27 U/L (0-32) 01/15/21 05:37 ALT 21 U/L (0-33) 01/15/21 05:37 Alkaline Phosphata se 102 IU/L (35-105) 01/15/21 05:37 Creatine Kinase 162 U/L (26-192) 01/15/21 05:37 Troponin T Baselin e 132 ng/L (0-10) H* 01/14/21 19:22 Troponin T 120 Min sarah 252.1 ng/L (0-10) H 01/14/21 21:28 Delta Troponin T 120.1 ABS# (0-10) H* 01/14/21 21:28 Troponin T Hi Sens 6Hr 207.6 ng/L (0-10) H 01/15/21 01:28 Troponin T Hi Sens 6Hr Delta 75.6 ng/L (0-12) H* 01/15/21 01:28 NT-Pro-B Natriuret Pep 1749 pg/mL (0-125 ) H 01/15/21 05:37 Total Protein 6.2 g/dL (6.6-8.7 ) L 01/15/21 05:37 Albumin 3.7 g/dL (3.5-5.2 ) 01/15/21 05:37 Globulin 2.5 g/dL (1.3-4.6 ) 01/15/21 05:37 TSH 3.78 uIU/mL (0.27 -4.20) 01/14/21 21:28 Urine Color Yellow (Yellow) 01/14/21 19:10 Urine Appearance Clear (CLEAR) 01/14/21 19:10 Urine pH 5 (5-7) 01/14/21 19:10 Ur Specific Gravit y 1.020 (1.005-1.0 30) 01/14/21 19:10 Urine Protein Neg (Negative) 01/14/21 19:10 Urine Glucose (UA) Norm (Normal) 01/14/21 19:10 Urine Ketones 1+ (Negative) H 01/14/21 19:10 Urine Blood Trace (Negative) H 01/14/21 19:10 Urine Nitrate Negative (Negati ve) 01/14/21 19:10 Urine Bilirubin Neg (Negative) 01/14/21 19:10 Urine Urobilinogen Norm mg/dL (Negat kristin) 01/14/21 19:10 Ur Leukocyte Pat ase Negative (Negati ve) 01/14/21 19:10 Urine RBC 0-4 /hpf (0-2) H 01/14/21 19:10 Urine WBC 0-4 /hpf (0-5) H 01/14/21 19:10 Ur Squamous Epith Cells 0-4 /hpf (0-5) H 01/14/21 19:10 Amorphous Sediment 2+ /hpf 01/14/21 19:10 Urine Bacteria Trace /hpf (NONE) 01/14/21 19:10 A&P Assessment and plan (1) NSTEMI (non-ST elevated myocardial infarction): Patient may be kept on the IV heparin, p.o. Plavix and aspirin and statin. Will go ahead and do an echocardiogram today to evaluate LV function and rule out any other pathology. After reviewing the above and also based on the patient's clinical progress, further management decisions will be made. Status: Acute (2) SSS (sick sinus syndrome): Patient has been on atenolol for a long time. Apparently she had some intolerance to other medications. Details are not available. We may continue the atenolol and titrate the dose. Status: Acute (3) HTN (hypertension): Continue on the atenolol . Add topical nitrates, 1 inch every 6 hours to the anterior chest wall. Status: Acute Qualifiers: Hypertension type: essential hypertension Qualified Code(s): I10 - Essential (primary) hypertension (4) Compression fracture: Conservative management as per the primary. Status: Acute (5) Pacemaker: Since the pacemaker function seems to be appropriate. May not require any specific intervention. Status: Acute (6) Ventricular arrhythmia: I may add magnesium tablet to the current medications. Status: Acute Additional A&P Information Based on the patient's the clinical progress and the results of the above, further recommendations will be made. Patient may benefit from a cardiac catheterization, to further evaluate the coronary status and decide on further management. I will make the decision after reviewing the echocardiogram. Thank you for the opportunity to evaluate this patient and make these recommendations. Consult Attestations Medical Necessity Statement: Patient requires continued hospital stay for close monitoring and further management Coding Level of Care Code Acute Sap Pp Consultant for Chg Fwd History Detailed Exam Detailed Medical Decision Making High Complexity Diagnoses NSTEMI (non-ST elevated myocardial infarction) I21.4 SSS (sick sinus syndrome) I49.5 HTN (hypertension) I10 Hypertension type: essential hypertension Compression fracture Pacemaker Z95.0 Ventricular arrhythmia I49.9
[2021-01-15 09:16] LABS: Hematocrit 39.6 % (37.0-47.0); Hemoglobin 12.7 g/dL (11.5-15.3)
[2021-01-15] MEDS: aspirin 81 mg EC Tablet PO (09:16)
[2021-01-15] MEDS: atenolol 50 mg Tablet 25 MG PO (09:16)
[2021-01-15] MEDS: famotidine 20 mg Tablet PO (09:16)
[2021-01-15 09:50] LABS: Troponin T (5th) Once 162 ng/L (0-10)
[2021-01-15 09:52] LABS: Partial Thromboplastin Time 81.2 SECONDS (23.9-36.7)
--- NOTE | 2021-01-15 10:00 | USCV_ITS ---
Jacquie Elliott Age: 70 Gender: F : 1950 Exam Date: 01/15/2021 11:31 Ordering Phys: Fran Sam MD Technologist: Krystal Ramirez [place] [facility] [place]: NSTEMI BP: 151 / 80 HR: 60 Rhythm: Sinus Technical Quality: Fair MEASUREMENTS (Male / Female) Normal Values 2D ECHO LV Diastolic Diameter PLAX 5.3 cm 4.2 - 5.9 / 3.9 - 5.3 cm LV Systolic Diameter PLAX 4.0 cm LV Chamber Size 4.9 cm IVS Diastolic Thickness 1.0 cm 0.6 - 1.0 / 0.6 - 0.9 cm IVS Systolic Thickness 1.3 cm LVPW Diastolic Thickness 1.0 cm 0.6 - 1.0 / 0.6 - 0.9 cm LVPW Systolic Thickness 1.1 cm RV Chamber Size 2.0 cm LVOT Diameter 1.9 cm LV Ejection Fraction 2D Teich 46.1 % LA Diameter 3.0 cm LA Width 2.4 cm LA Height 5.2 cm RA Width 3.0 cm RA Height 5.0 cm Aorta at Sinotubular Diameter 2.0 cm M-MODE LV Diastolic Diameter MM 5.2 cm 4.2 - 5.9 / 3.9 - 5.3 cm LV Systolic Diameter MM 3.9 cm LV Ejection Fraction MM Teich 47.9 % IVS Diastolic Thickness MM 0.8 cm 0.6 - 1.0 / 0.6 - 0.9 cm IVS Systolic Thickness MM 1.1 cm LVPW Diastolic Thickness MM 1.1 cm 0.6 - 1.0 / 0.6 - 0.9 cm LVPW Systolic Thickness MM 1.5 cm RV Diastolic Diameter MM 0.9 cm Aortic Annulus Diameter 3.0 cm LA Ao Ratio MM 1.2 MV E Point Septal Separation 1.3 cm DOPPLER AV Peak Velocity 120.0 cm/s LVOT Peak Velocity 105.0 cm/s AV Area Cont Eq vti 2.3 cm squared AV Area Cont Eq pk 2.5 cm squared MV Area PHT 3.5 cm squared Mitral E to A Ratio 0.8 MV E' Velocity 28.5 cm/s Mitral E to MV E' Ratio 10.3 Mitral E to LV E' Lateral Ratio 9.4 Mitral E to LV E' Septal Ratio 11.7 TV Peak E Velocity 37.0 cm/s Right Atrial Pressure 8.0 mmHg PV Peak Velocity 60.0 cm/s QpQs Shunt Ratio 1.1 FINDINGS Left Ventricle Mild diffuse hypokinesis septum, anteroseptum and inferior wall segments. Overall ejection fraction around 46%.Grade I/IV diastolic dysfunction (abnormal relaxation filling pattern), normal to mildly elevated filling pressures. Right Ventricle The right ventricle is normal in size and function. Right Atrium Mildly increased right atrial size. Left Atrium Mildly increased left atrial size. Mitral Valve Mild mitral valve regurgitation. Thickened mitral valve. Aortic Valve No gross abnormalities noted Tricuspid Valve No gross abnormalities noted Pulmonic Valve Mild pulmonary valve regurgitation. Pericardium Normal pericardium without effusion. Aorta Normal ascending aorta dimension. CONCLUSIONS Normal LV size with diminished ejection fraction 46%. Wall motion of abnormalities as mentioned above. Mild biatrial enlargement. Thickened mitral valve. Mild mitral valve regurgitation. There is no pericardial effusion. There are no intracardiac masses. No previous study is available for comparison. Dr Hortencia Murcia MD FACC (Electronically Signed) Final Date: 15 January 2021 13:38 S
--- NOTE | 2021-01-15 10:22 | PC.NURSE ---
Heparin dose was not titrated at 0530 per protocol. Next ptt and titration is due at 1130. Nurse titrated heparin down by 1 ml/hr per protocol based on 0530 results. Starting protocol over. Next ptt scheudled for 1630
[2021-01-15] MEDS: nitroglycerin 1 gm/inch oint Pkt 1 INCH TOPICAL ×3 (10:54→21:53)
--- NOTE | 2021-01-15 12:49 | PC.NURSE ---
Patient complains of back pain related to the lumbar compression fracture. or 06/13. Patient either refuses paint medication or wants the smallest dose possible. Repositioning does provide some relief to patient and she tends to prefer left side lying.
--- NOTE | 2021-01-15 13:51 | PM.PN ---
Subjective Subjective: Interval history: Patient is stating that she has been very active throughout her life and never experienced these kind of symptoms before, she would like to avoid taking too many opioids, she was complaining of back pain while laying flat in her bed Rodriguez cath was draining clear urine, I also talked with Dr. Murcia this morning, she is currently being prepped for an angiogram No signs of spinal cord compression She does complain of intermittent chest pain Vitals/I&O/Wt Last Vital Signs Temp 99.1 F 01/15/21 11:30 Pulse 59 L 01/15/21 13:05 Resp 14 01/15/21 13:05 BP 110/63 01/15/21 13:05 Pulse Ox 96 01/15/21 13:05 01/14/21 01/15/21 01/15/21 21:59 06:59 14:59 Intake Total 178.8 / 178.8 Output Total 500 / 500 Balance -321.2 / -321.2 Weight last 48 hrs Weight 63.503 kg Physical Exam Narrative: EXAM NARRATIVE: Very pleasant female currently laying flat in her bed irritable secondary to back pain Saturating well on room air No active chest pain Normal hemodynamics No signs of spinal cord compression, Rodriguez cath draining clear urine, she has good sensation of medial side of her thighs, anal sphincter tone is normal No acute neurological deficits, S1, S2 sinus rhythm no murmur appreciated Bilateral breath sounds without adventitious rhonchi or crackles Abdomen soft nontender bowel sound present EOMI, PERRLA Urinary Catheter Management^: Rodriguez: Cath Placed During This Visit: yes Reason for Continuing Indwelling Catheter: Accurate Measurement of Urinary Output in Critically Ill Patients Urinary Catheter Date of Insertion: 01/14/21 Urinary Catheter Time of Insertion: 19:17 Data : 01/15/21 09:03 01/15/21 05:37 A&P Assessment and plan (1) Syncope: Status: Acute (2) Compression fracture: Status: Acute (3) Back pain: Status: Acute Additional A&P Information NSTEMI Currently awaiting an angiogram No active chest pain Continue heparin drip Aspirin Plavix atorvastatin No previous history of SD or CHF, echo revealed grade 1 diastolic dysfunction EF 46% mild diffuse hypokinesia of septum inferior wall and anterior septum, biatrial enlargement Will follow up with cardiology after angiogram Keep her n.p.o. for now Change her status to inpatient Compression fracture No signs of spinal cord compression She would not require Decadron at this point Continue calcitonin and opioids for back pain She will require back brace and physical therapy evaluation before discharge No acute intervention needed Syncopal event Stay of sick sinus syndrome Pacemaker evaluation Current heart rate around 60 with normal hemodynamic Her syncopal event most likely is NSTEMI related with prominent wall motion abnormality She is very active for her age PE less likely, CT chest revealed multiple pulmonary nodules 5 mm with groundglass opacities consistent with contusion Will request D-dimer Full code N.p.o. resume diet after angiogram DVT prophylaxis not needed currently on heparin drip, will resume Lovenox after angiogram Attestations Medical Necessity Statement*: Anticipating stay in the hospital cross more than 2 midnights will need angiogram Time Spent in Patient Care: (>than 50% of time spent in counselling and/or direct pt care on unit). 45mins Coding Level of Care Code Acute Predatory Game Hunter for Lilian Qureshi Diagnoses Syncope R55 Compression fracture Back pain M54.9
[2021-01-15] MEDS: predniSONE 20 mg Tablet 40 MG PO ×2 (14:41→21:53)
--- NOTE | 2021-01-15 15:09 | PC.OT ---
Occupational therapy eval attempted, patient resting soundly will attempt later.
--- NOTE | 2021-01-15 17:27 | PC.NURSE ---
Patient complains of pain, nausea, and is occaisonally dry heaving. Nurse has offered Zofran for nausea and morphine for pain. Patient refuses both.
[2021-01-15 17:39] LABS: D Dimer 0.91 ug/mIFEU (0-0.59)
[2021-01-15] MEDS: ondansetron 2 mg/ML SDV 2 mL 4 MG IVP (17:52)
--- NOTE | 2021-01-15 18:01 | PC.NURSE ---
Patient continues to dry heave and have nausea. Patient agreed to zofran.
[2021-01-15] MEDS: magnesium lactate 84 mg Tablet PO (18:26)
--- NOTE | 2021-01-15 18:31 | PC.NURSE ---
Patient has refused prn pain and nausea medication as well as the scheduled calcitonin and famotidine. Nurse has explained to the patient the reasoning for taking the meds and risks of not taking them. Pt still refuses.
[2021-01-15 23:53] LABS: Partial Thromboplastin Time 138.7 SECONDS (23.9-36.7)
[2021-01-16] VITALS (98 sets, daily range): BP systolic 89–139; BP diastolic 43–78; PULSE 55–82; RESP 1–35; TEMP 36.4–37.6; O2SAT 89–99
[2021-01-16] MEDS: predniSONE 20 mg Tablet 40 MG PO ×2 (01:55→07:58)
[2021-01-16 03:27] LABS: Basophils % 0.1 %; Hematocrit 41.1 % (37.0-47.0); Hemoglobin 13.5 g/dL (11.5-15.3); Lymphocytes # 0.9 10^3/uL (0.8-4.8); Lymphocytes % 11.8 %; Mean Corpuscular HGB Conc 32.8 g/dL (30.0-36.0); Mean Corpuscular Hemoglobin 29.8 pg (28.0-34.0); Mean Corpuscular Volume 90.7 fL (81-99); Mean Platelet Volume 9.8 fL (7.4-10.4); Monocytes # 0.1 10^3/uL (0.2-0.9); Monocytes % 1.1 %; Neutrophils # 6.26 10^3/uL (1.8-7.7); Neutrophils % 86.6 %; Nucleated Red Blood Cells % 0 %; Platelet Count 269 10^3/cmm (130-400); Red Blood Count 4.53 10^6/uL (4.1-5.3); Red Cell Distribution Width 14.1 % (12.1-15.1); White Blood Count 7.2 10^3/uL (4.0-10.0)
[2021-01-16 03:28] LABS: Alanine Aminotransferase 17 U/L (0-33); Albumin Level 3.5 g/dL (3.5-5.2); Alkaline Phosphatase 88 IU/L (35-105); Anion Gap 12.8 (5-19); Aspartate Amino Transferase 22 U/L (0-32); Blood Urea Nitrogen 7 mg/dL (8-23); Carbon Dioxide 24 mmol/L (22-29); Chloride 105 mmol/L (98-107); Globulin 2.5 g/dL (1.3-4.6); Glomerular Filtration Rate 157.8 mL/min (90-130); Glucose 161 mg/dL (65-115); Osmolality Calculated 287 mOsm/kg (285-295); Potassium 3.8 mmol/L (3.5-5.1); Sodium 138 mmol/L (136-145); Total Bilirubin 0.3 mg/dL (0.15-1.2)
[2021-01-16 03:35] LABS: Partial Thromboplastin Time 139.1 SECONDS (23.9-36.7)
[2021-01-16 03:40] LABS: INR 1.04 (0.8-1.2)
[2021-01-16] MEDS: nitroglycerin 1 gm/inch oint Pkt 1 INCH TOPICAL ×2 (03:57→09:17)
[2021-01-16 03:58] LABS: Creatine Phosphokinase 188 U/L (26-192)
[2021-01-16] MEDS: heparin drip 25,000 UNIT/500 ML PREMIX 16 UNIT IV (03:58)
[2021-01-16] MEDS: acetaminophen 325 mg Tablet 650 MG PO ×3 (05:43→23:23)
--- NOTE | 2021-01-16 06:34 | PC.NURSE ---
0600 CHG bath done groins prep for angiogram. tolerated well
[2021-01-16] MEDS: aspirin 81 mg EC Tablet PO (09:09)
[2021-01-16] MEDS: clopidogrel 75 mg Tablet PO (09:10)
[2021-01-16] MEDS: metoprolol succinate ER (24 HR) 25 mg Tablet 12.5 MG PO (09:10)
[2021-01-16] MEDS: magnesium lactate 84 mg Tablet PO (09:10)
[2021-01-16] MEDS: lisinopril 5 mg Tablet PO (09:13)
--- NOTE | 2021-01-16 09:53 | PC.CHAP ---
Pastoral Care Encounter/Spiritual Assessment Type of Contact [] Declined inhalation therapy aides teacher visit [] Patient/Family/Request visit [] Outpatient visit [] Follow-up visit [] Physician referral [] Code/Alert [x] Routine visit [] Staff referral [] Actively dying [] Patient sleeping [] Family support [] [] Out of room [] Palliative care [] [] Receiving care in room [] Pre-surgical visit [] Trauma [] Long length of stay [x] ICU visit [] Other: Relational/Emotional Strength [] Patient feels connected with others/family/visitors/staff [] Distress [] Loneliness/isolation [] Abandonment Spirituality of Patient [] Person of Becky [] Attends Restorationism of their Becky [] Believes in Prayer [] Reads Bible or Jewish materials [] There are Spiritual issues to be addressed Sales Architect Interventions [x] Prayer [] Active listening [] Non-anxious presence [] Spiritual/emotional support [] Crisis/trauma care [] Spiritual counseling [] Bereavement support [] Provided bereavement packet [] Provided Bible/devotional materials [] Provided toy/stuffed animal, coloring book to patient or family member [] Provided Communion [] Anointing/[place] [] Salvation [x] Completed spiritual assessment [] Other: Impact on Illness or Injury [] Angry [] Fearful [] Anxious [] Often cries [] Exhaustion [] Unable to work [] Unable to attend voodoo [] Unable to walk/stand [] Unable to read [] Unable to drive [] Unable to eat/drink [] Unable to sleep [] Unable to be with family [] Patient intubated [] Other: Summary Time spent with patient
[2021-01-16 10:51] LABS: Partial Thromboplastin Time 92.1 SECONDS (23.9-36.7)
--- NOTE | 2021-01-16 10:56 | XACV_ITS ---
Exam Room: [facility] Ht: 163 cm Wt: 64 kg BSA: 1.70 m2 Gender: Female : 1950 Any Known Allergies: Other Exam Priority: Routine Procedure(s): Procedure Description: Diagnostic procedure Procedure Description: Coronary Angiography Procedure Description: Pressure Wire Diagnostic Cath Status: Urgent Diagnostic Findings * CX has minor luminal irregularities. * RCA has minor luminal irregularities. * Mid Left Anterior Descending Coronary Artery: Moderate 40% stenosis, JOSE: 3 flow. * LM has 0% stenosis. * Coronary angiography shows right dominance. Interventional Findings * Procedure detail: We engaged left main artery using XB 3.5 guide catheter. IV heparin was used to maintain an ACT above 250 seconds. After zeroing and equalization, pressure wire was advanced past the mid LAD stenosis and we performed FFR. It was non ischemic with a value of 0.94. At this time final angiogram was performed that showed excellent stent expansion, no residual stenosis and JOSE-3 flow. Pressure wire and guide catheter were removed. Hemostasis was obtained with TR band. Patient left the Chamfering Machine Operator in a stable condition. Conclusions 1. There is moderate coronary artery disease in LAD. FFR negative for ischemia. Recommendations * Transfer to [facility]. * Statin therapy and aspirin. * Outpatient cardiology follow up. Interventional RX Recommendation: medical therapy and/or counseling Diagnostic RX Recommendation: medical therapy and/or counseling Anticoagulation: Heparin Pressures Phase:Rest AO : 134 / 65 ( 92 ) @ 7:08:00 AM Clinical Evaluation EBL: 5mL-10mL Procedural Details Procedure Consent Obtained. Pre-Procedure Time Out. Identified patient by full name and date of as verbalized by the patient/guarantor. Does the consent match the physician's order: Yes. Accurate & Complete Informed Consent: Yes. Inpatient/Outpatient History & Physical on Chart: Yes. If H&P is completed, is and addenduem needed: No; If yes, is the addendum complete: N/A. Visualize and Verify Site with Patient/Guarantor: N/A. Relevant Radiology Images available: N/A. Pre-op teaching completed and patient verbalized understanding. The risks, benefits, and alternatives of sedation and/or procedure were discussed by physician. The patient agrees to continue. Procedure started. Correct patient, site and procedure confirmed by cath team. [facility] Clinical Fraility Score: 4: Vulnerable. Chamfering Machine Operator Indications: ACS > 24 hours. Chest Pain Symptom Assessment: Atypical Angina. Cardiovascular Instability: No. PERRLA. Strong, equal hand shuttle fitting supervisor bilaterally. Lungs clear x 5 lobes. IV Site on Arrival: 18 gauge in the left anticubital. IV Site on Arrival: 20 gauge in the right anticubital. IV Fluids: 0.9% NaCl at KVO. 0 mL infused prior to medical lab technician. Oxygen started at 2liters/min via nasal canula. bilateral groins was prepped with chloroprep then draped in the usual sterile fashion. right radial was prepped with chloroprep then draped in the usual sterile fashion. Baseline sample Acquired. HR: 94 BPM. Physician scrubbed in. Immediate Pre-Procedure Time Out. Correct Patient: Yes; Correct Procedure: Yes; Correct Site: Yes; Correct Patient Position: Yes; Correct Supplies: Yes; Dried Flammable Prep: Yes; Blood Products Available: N/A;. Equipment: 6F - Radial. Cardiac Cath Pack. ACIST Manifold Kit Model BT 2000. Heparinized Saline (2 units/mL), 1000 mL bag. Lidocaine 1% infiltrated to the right radial. Arterial access obtained. A 5 marshallese TIG catheter in over wire. Multiple views taken of left coronary artery. Catheter redirected to the RCA. Multiple views taken of right coronary artery. Catheter removed over the exchange wire. Inventory is CRD 6 FR XB 3.5 GUIDE. 6 marshallese XB 3.5 guide catheter was inserted over the wire. FFR guidewire was advanced through the guide catheter to lesion in the mid LAD. An FFR value of 0.99 was obtained for a lesion located at Mid LAD. Fractional flow reserve measurements obtained. Wire out. Guide catheter out. Physician scrubbed out. A TR Band was successful obtaining hemostatsis at the Right Radial artery insertion site. TR band placed. Hemostasis obtained. Post Procedure: Pulses reassessed and unchanged. PERRLA. Strong, equal hand shuttle fitting supervisor bilaterally. No VTE prophylaxis required. Medication's Wasted: Lidocaine 1% = 18 mL. Medication's Wasted: Nitro = 49.8 mg. Medication's Wasted: Heparin = 4000 units. Medication's Wasted: Other = 71 mg. Total IV fluids: 50 mL. Contrast type used: Omnipaque 300 mgI/mL, 500 mL bottle. Post-op diagnosis: moderate mid LAD stenosis. Complications: none. Estimated blood loss: 5mL-10mL. Procedure completed. Patient transferred by bed to ICU. Vital chart was stopped. Access Site Site: Right Radial artery Sheath Size: 6 Fr Hemostasis Method: TR Band Hemostasis Success: Successful Procedure Medications Start: 12:07 PM Stop: 12:07 PM Medication: Versed Amount: 1 mg Route: I.V. Start: 12:07 PM Stop: 12:07 PM Medication: Fentanyl Amount: 50 mcg Route: I.V. Start: 12:07 PM Stop: 12:07 PM Medication: Nitrogylcerin Amount: 200 mcg Route: Topical Start: 12:08 PM Stop: 12:08 PM Medication: Fentanyl Amount: 50 mcg Route: I.V. Start: 12:08 PM Stop: 12:08 PM Medication: Heparin Amount: 3000 units Route: I.V. Start: 12:19 PM Stop: 12:19 PM Medication: Heparin Amount: 4000 units Route: I.V. Start: 12:19 PM Stop: 12:19 PM Medication: Versed Amount: 1 mg Route: I.V. I, the attending physician, have reviewed and verified all procedure medications. Yes, all medications given per verbal order History/Risk Factors Hypertension: Yes Dyslipidemia: No Peripheral Arterial Disease (PAD): No Myocardial Infarction (CT): Yes Obesity: No Renal Disease: No Tobacco Use: Never Prior Interventions PCI: No CABG: No Valve Surgery: No Report Signatures Finalized by Chinedu Rodriguez MD on 01/22/2021 03:58 PM
[2021-01-16] MEDS: dextrose 5%-sod chloride 0.45% 1,000 ML 75 ML IV (11:18)
--- NOTE | 2021-01-16 11:38 | PC.NURSE ---
PTT resulted high (92). Titrated down per protocol. See MAR
--- NOTE | 2021-01-16 11:45 | PC.NURSE ---
Transferred to Kindergarten Tutor Uday RN came to ICU, Pt transferred to builder's labourer by bed.
--- NOTE | 2021-01-16 12:00 | W.PM.OPSUD ---
Surgery/Procedure H&P Update DATE OF PROCEDURE: January 16, 2021 DATE H&P PERFORMED: 01/15/21 H&P UPDATE INFORMATION: I have reviewed H&P completed within last 30 days, I have examined patient prior to procedure and No changes to prior documentation PREOP DIAGNOSIS: NSTEMI PRIMARY INDICATION FOR PROCEDURE: NSTEMI PLANNED PROCEDURE: Left heart cath with possible percutaneous coronary intervention PHYSICAL EXAM: alert, oriented x 3 and clear to auscultation bilaterally AIRWAY EVAL/ANESTHESIA PLAN: ASA III, Risks, benefits & alternatives of sedation and/or procedure discussed and Patient agrees to continue as planned
--- NOTE | 2021-01-16 12:53 | PC.NURSE ---
Pt to ICU Pt transferred back to ICU by VALENCIA Frye. Pt resting in bed with at bedside. Vital signs stable: BP:107/61, O2:95% on RA, HR:64, Temp: 98.1 orally. TVAR band on right wrist placed in label sewer. Capillary refill to fingers on right hand. Heparin drip stopped per physician's orders. Pt denies pain at this time. Will continue to monitor.
--- NOTE | 2021-01-16 13:51 | PC.NURSE ---
Post op monitoring completed. Vitals remained within normal limits and were charted within the vitals monitoring worklist. No signs of bleeding from access site on wrist. Pt is resting comfortably at this time.
--- NOTE | 2021-01-16 14:33 | PM.PN ---
Subjective Subjective: Interval history: No overnight events patient is chest pain-free waiting for an angiogram today Her back pain is well controlled Adequate urine output no leukocytosis she has stayed afebrile Normal hemodynamics Vitals/I&O/Wt Last Vital Signs Temp 99.1 F 01/16/21 13:34 Pulse 65 01/16/21 14:00 Resp 14 01/16/21 14:00 BP 121/63 01/16/21 14:00 Pulse Ox 93 01/16/21 14:00 01/15/21 01/16/21 01/16/21 22:59 06:59 14:59 Intake Total 1222.967 / 1401.767 198.233 / 6292.983 5873.533 / 1232.533 Output Total 425 / 925 700 / 1625 975 / 975 Balance 797.967 / 476.767 -501.767 / -25.000 257.533 / 257.533 Weight last 48 hrs Weight 63.503 kg Physical Exam Narrative: EXAM NARRATIVE: Patient was laying comfortably in her bed in left lateral position no active back pain no chest pain S1, S2 no murmur appreciated No signs of heart failure Abdomen soft nontender bowel sound present EOMI, PERRLA No neurological deficit No acute respite distress Very pleasant during my evaluation No lower extremity edema gangrene or ulcer Urinary Catheter Management^: Rodriguez: Cath Placed During This Visit: yes Reason for Continuing Indwelling Catheter: Accurate Measurement of Urinary Output in Critically Ill Patients Urinary Catheter Date of Insertion: 01/14/21 Urinary Catheter Time of Insertion: 19:17 Data : 01/16/21 01:54 01/16/21 01:54 A&P Assessment and plan (1) Compression fracture: Status: Acute (2) Syncope: Status: Acute (3) NSTEMI (non-ST elevated myocardial infarction): Status: Acute (4) Compression fracture of L1 lumbar vertebra: Status: Acute Additional A&P Information NSTEMI Mildly reduced EF with hypokinesia noted on echo No recurrence of chest pain, waiting for an angiogram today We will start her diet after her angiogram No recurrence of symptoms Continue ACS protocol Compression fracture L1 No signs of spinal cord compression Her back brace has been arranged will work with physical therapy before her discharge Syncope Dimer not that high according to her age Currently anticoagulated with heparin Will request CTA before discharge However ventricular arrhythmia is a high probability for her syncopal event considering low EF and NSTEMI No arrhythmia noted during her hospitalization Full code Start cardiac diet after the procedure Currently anticoagulated with heparin start DVT prophylaxis after her angiogram Attestations Medical Necessity Statement*: Awaiting an angiogram today, will get physical therapy continue inpatient hospitalization Time Spent in Patient Care: 30mins Coding Level of Care Code Acute Electrophysiology Scientist for g Fwd Diagnoses Compression fracture Syncope R55 NSTEMI (non-ST elevated myocardial infarction) I21.4 Compression fracture of L1 lumbar vertebra S32.010A
--- NOTE | 2021-01-16 16:54 | PC.NURSE ---
TR Band TR band removed per physician's orders and protocol. (16ml of air in TR band) -1453: 2mL of air removed. No bleeding noted -1510: 2mL of air removed. No bleeding noted. -1530: 2mL of air removed. No bleeding noted. -1545: 2mL of air removed. No bleeding noted at site. -1600: 2mL of air removed. No bleeding noted. -1615: 2mL of air removed. No bleeding noted. -1630: 2mL of air removed. No bleeding noted. -1645: 2mL of air removed. No bleeding noted. TR Band removed at 1645 and gauze and coban put in place. No bleeding at the site and pt has no complaints of pain. at bedside and vital signs remain stable.
--- NOTE | 2021-01-16 18:25 | PC.NURSE ---
END OF SHIFT SUMMARY Pt denied chest pain, SOB, lungs sounds noted to be diminished. Last bowel movement being 01/14. No edema to lower legs. Pt urine output this shift noted to be 1575mL. Pt reported slight nausea this morning, refused prn zofran. Heparin drip discontinued this am at 1145. Pt transferred to Leakage Tester at 1145- refer to physician's note. TR band removed at 1645, no bleeding noted. , Ino visited for most of the day as well. Pt worked with OT, as well as Physical Therapy earlier this afternoon and walked about 50 feet. Pt consumed 50% of her dinner and drank 120mL while sitting up on side of bed. Pt complains of pain in lower back and requested half of the ordered dose of PRN tylenol. Pain rated 8 on a scale of 1-10. Pt received 325mg of Tylenol. Pt resting in bed on right side watching TV. Shift report given at bedside to VALENCIA Santos by this nurse.
[2021-01-16] MEDS: enoxaparin 40 mg/0.4 mL Syringe SUBCUT (20:34)
[2021-01-17] VITALS (14 sets, daily range): BP systolic 111–145; BP diastolic 56–80; PULSE 55–75; RESP 12–20; TEMP 36.6–37.1; O2SAT 94–99
[2021-01-17] MEDS: morphine 4 mg/mL SDV 1 mL 0.5 MG IVP ×3 (02:03→10:48)
[2021-01-17 04:06] LABS: Basophils % 0.2 %; Hematocrit 39.6 % (37.0-47.0); Hemoglobin 12.7 g/dL (11.5-15.3); Lymphocytes # 2.4 10^3/uL (0.8-4.8); Lymphocytes % 14.2 %; Mean Corpuscular HGB Conc 32.1 g/dL (30.0-36.0); Mean Corpuscular Hemoglobin 29.4 pg (28.0-34.0); Mean Corpuscular Volume 91.7 fL (81-99); Mean Platelet Volume 9.3 fL (7.4-10.4); Monocytes # 1.2 10^3/uL (0.2-0.9); Neutrophils # 13.27 10^3/uL (1.8-7.7); Neutrophils % 78.1 %; Nucleated Red Blood Cells % 0 %; Platelet Count 252 10^3/cmm (130-400); Red Blood Count 4.32 10^6/uL (4.1-5.3); Red Cell Distribution Width 14.2 % (12.1-15.1)
[2021-01-17 04:35] LABS: Alanine Aminotransferase 14 U/L (0-33); Albumin Level 3.4 g/dL (3.5-5.2); Alkaline Phosphatase 75 IU/L (35-105); Anion Gap 12.3 (5-19); Aspartate Amino Transferase 16 U/L (0-32); Blood Urea Nitrogen 11 mg/dL (8-23); Calcium 8.9 mg/dL (8.5-10.5); Carbon Dioxide 26 mmol/L (22-29); Chloride 105 mmol/L (98-107); Globulin 2.3 g/dL (1.3-4.6); Glomerular Filtration Rate 157.8 mL/min (90-130); Glucose 98 mg/dL (65-115); Osmolality Calculated 289 mOsm/kg (285-295); Potassium 3.3 mmol/L (3.5-5.1); Sodium 140 mmol/L (136-145); Total Bilirubin 0.3 mg/dL (0.15-1.2); Total Protein 5.7 g/dL (6.6-8.7)
[2021-01-17] MEDS: aspirin 81 mg EC Tablet PO (08:22)
[2021-01-17] MEDS: lisinopril 5 mg Tablet PO (08:23)
[2021-01-17] MEDS: metoprolol succinate ER (24 HR) 25 mg Tablet 12.5 MG PO (08:24)
[2021-01-17] MEDS: clopidogrel 75 mg Tablet PO (08:24)
--- NOTE | 2021-01-17 09:08 | PC.CHAP ---
Pastoral Care Encounter/Spiritual Assessment Type of Contact [] Declined pepper picker visit [] Patient/Family/Request visit [] Outpatient visit [] Follow-up visit [] Physician referral [] Code/Alert [x] Routine visit [] Staff referral [] Actively dying [] Patient sleeping [] Family support [] [] Out of room [] Palliative care [] [] Receiving care in room [] Pre-surgical visit [] Trauma [] Long length of stay [x] ICU visit [] Other: Relational/Emotional Strength [] Patient feels connected with others/family/visitors/staff [] Distress [] Loneliness/isolation [] Abandonment Spirituality of Patient [] Person of Becky [] Attends Rastafarian of their Becky [] Believes in Prayer [] Reads Bible or Mosque materials [] There are Spiritual issues to be addressed Granulator Interventions [x] Prayer [x] Active listening [x] Non-anxious presence [x] Spiritual/emotional support [] Crisis/trauma care [] Spiritual counseling [] Bereavement support [] Provided bereavement packet [] Provided Bible/devotional materials [] Provided toy/stuffed animal, coloring book to patient or family member [] Provided Communion [] Anointing/[place] [] Salvation [x] Completed spiritual assessment [] Other: Impact on Illness or Injury [] Angry [] Fearful [] Anxious [] Often cries [] Exhaustion [] Unable to work [] Unable to attend jain [] Unable to walk/stand [] Unable to read [] Unable to drive [] Unable to eat/drink [] Unable to sleep [] Unable to be with family [] Patient intubated [] Other: Summary patient didnt have easy night.. first night truly experienced pain.. fall didnt damage spine but there is healing that will take time. Time spent with patient 10 min
--- NOTE | 2021-01-17 09:39 | PC.NURSE ---
DC JOHNSON Johnson catheter removed per 's orders. 250 mL removed from johnson bag. 10ml of water removed from bulb. Pt asked to take a deep breath, johnson removed during exhale. Pt tolerated very well. Pt now sitting on side of bed eating breakfast. Will continue to monitor.
--- NOTE | 2021-01-17 09:55 | PM.PN ---
Subjective Subjective: Interval history: She underwent coronary angiogram via right radial yesterday by Dr. Rodriguez Medications: Reviewed: Yes Vitals/I&O/Wt Last Vital Signs Temp 97.8 F 01/17/21 02:00 Pulse 63 01/17/21 08:00 Resp 16 01/17/21 08:00 BP 135/62 01/17/21 08:00 Pulse Ox 97 01/17/21 08:00 01/16/21 01/17/21 01/17/21 22:59 06:59 14:59 Intake Total 240 / 1481.533 120 / 120 Output Total 1999 / 2974 200 / 3175 250 / 250 Balance -1760 / -1493.467 -200 / -1693.467 -130 / -130 Physical Exam Const: COMMON NORMALS: no acute distress, patient oriented x3 and alert GENERAL APPEARANCE: cooperative, comfortable, well kempt and well hydrated HENMT: COMMON NORMALS: hearing grossly normal bilaterally and external ears normal FACE & SINUS: normal facial exam EXTERNAL EAR: Yes external ears normal Eye: COMMON NORMALS: EOMs intact bilaterally and no scleral icterus GENERAL EYE: appearance normal, both eyes and all related structures ALIGNMENT: Yes alignment normal Neck/C-Spine: COMMON NORMALS: supple and no JVD GENERAL: Yes normal visual inspection and Yes trachea midline CAROTIDS: Yes normal carotid upstroke Chest: COMMONS NORMALS: normal inspection of the chest and normal palpation of entire chest wall CHEST: Yes Symmetrical chest wall rise and No tenderness Resp: COMMON NORMALS: clear to auscultation bilaterally AUSCULTATION: clear to auscultation bilaterally, no crackles, no rales, no rhonchi and no wheezes Cardio: COMMON NORMALS: no JVD, regular rate, regular rhythm, S1 normal heart sound present, S2 normal heart sound present and Peripheral pulses 2+ throughout PALPATION: normal PMI RATE: regular rate RHYTHM: regular rhythm HEART SOUNDS: S1 normal heart sound present, S2 normal heart sound present, no click, no gallops and no murmurs BRUITS: no carotid bruits PERIPHERAL PULSES: Peripheral pulses 2+ throughout, radial pulses present, posterior tibial pulses present and dorsalis pedis present GI: COMMON NORMALS: Soft to palpation AUSCULTATION: Yes normoactive bowel sounds PALPATION: Yes Soft to palpation, No Tenderness to palpation present (GI) and No Rigid due to palpation Extremity: NARRATIVE EXTREMITY EXAM: Right wrist 2+ raqdial, No significant bruising or hematoma GENERAL: No clubbing, No cyanosis, No edema and No pallor Neuro: COMMON NORMALS: patient oriented x3 and no focal motor deficits SENSORIUM/ORIENTATION: Yes alert Psych: COMMON NORMALS: Normal thought process present and speech normal APPEARANCE: Yes well kempt SPEECH: Yes normal speech MOOD & AFFECT: Yes euthymic mood THOUGHT PROCESS: Normal thought process present THOUGHT CONTENT: Yes Normal thought content present Urinary Catheter Management^: Rodriguez: Cath Placed During This Visit: yes Reason for Continuing Indwelling Catheter: Accurate Measurement of Urinary Output in Critically Ill Patients Urinary Catheter Date of Insertion: 01/14/21 Urinary Catheter Time of Insertion: 19:17 Data : 01/17/21 03:36 01/17/21 03:36 Attestation for Other Data: I personally reviewed and interpreted the following: Other data: TTE Mild diffuse hypokinesis septum, anteroseptum and inferior wall segments. Overall ejection fraction around 46%.Grade I/IV diastolic dysfunction (abnormal relaxation filling pattern), normal to mildly elevated filling pressures. Mild MR A&P Assessment and plan (1) NSTEMI (non-ST elevated myocardial infarction): Moderate mid LAD lesion, FFR 0.99. -continue to manageme medically with ASA, statin and beta keri. -PLAVIX FOR 1 MONTH Status: Acute (2) SSS (sick sinus syndrome): s/p PPM Status: Acute (3) HTN (hypertension): Status: Acute Qualifiers: Hypertension type: essential hypertension Qualified Code(s): I10 - Essential (primary) hypertension (4) Compression fracture: Conservative management as per the primary. Status: Acute (5) Pacemaker: Since the pacemaker function seems to be appropriate. May not require any specific intervention. Status: Acute (6) Ventricular arrhythmia: PVC's noted on tele. Status: Acute Additional A&P Information H/o unspecified arrhythmia: attempt at ablation in past. (could not be induced in EP lab) Thank you for the opportunity to evaluate this patient and make these recommendations. She is stable to be discharged. Follow up labs (BMP) in 1 week Follow up with me in [facility] in 1 month Attestations Medical Necessity Statement*: stable to be discharged Time Spent in Patient Care: 16 - 35 minutes (>than 50% of time spent in counselling and/or direct pt care on unit). Coding Level of Care Code Acute Board Winder for Chg Fwd Exam Comprehensive Diagnoses NSTEMI (non-ST elevated myocardial infarction) I21.4 SSS (sick sinus syndrome) I49.5 HTN (hypertension) I10 Hypertension type: essential hypertension Compression fracture Pacemaker Z95.0 Ventricular arrhythmia I49.9 Compression fracture of L1 lumbar vertebra S32.010A
--- NOTE | 2021-01-17 10:34 | PM.DCS ---
Discharge Providers Date of Admission: 01/15/21 13:58 Date of Discharge: January 17, 2021 Attending Provider at Admission: Fran Sam MD Attending Provider at Discharge: Vicente Telles MD Primary Care Provider: Reddy Szymanski MD Diagnoses at Discharge Discharge Diagnosis (1) NSTEMI (non-ST elevated myocardial infarction): Status: Acute (2) SSS (sick sinus syndrome): Status: Acute (3) HTN (hypertension): Status: Acute Qualifiers: Hypertension type: essential hypertension Qualified Code(s): I10 - Essential (primary) hypertension (4) Compression fracture: Status: Acute (5) Pacemaker: Status: Acute (6) Ventricular arrhythmia: Status: Acute Reason for Visit Reason for Visit: BACK PAIN S/P FALL Hospital Course Hospital Course HPI done by Dr. Diop 01/14 Jacquie Elliott is a 70 year old female with a past medical history of mild idiopathic cardiomyopathy echo on 2018 showed an EF of 55 to 60%, had a pacemaker placed in 1980 for sick sinus syndrome, last generator change was 05/23/2016, she was in the , has moved around the country a lot, currently settled in [place], she has been doing well, is fairly physically active, is actually renovating her kitchen. This evening when she was renovating her kitchen, she was up on the ladder, about on the second step, 2 feet off the ground, when she missed the first step going down, and fell primarily on her left hip she tells me, she denies any significant head trauma or any trauma anywhere else, her pain is primary centered in the left hip and the lower back, immediately upon falling, she had paresthesias down her bilateral lower extremities, was able to move her lower extremities, no saddle anesthesia, no perianal anesthesia, she thought she might have had urinary incontinence, but her checked and she did not, she spent roughly 30 minutes on the floor, which was the subfloor, before EMS arrived, and the emergency room she had extensive CTs, which did show mild acute L1 vertebral compression fracture with mild vertebral height loss, the ER physician checked for anal tone which is good, patient did have 2 bowel movements, which ER physician was concerned of, so the case was discussed with a spinal surgeon and they recommended that this is a L1 vertebral compression fracture, no significant evidence of spinal cord damage. During CT she did have 2 episodes of passing out. She is currently declining any pain medication, she is worried about the adverse side effects. Patient had no episodes of confusion, but followed all commands, no urinary or bowel incontinence, no saddle or perianal anesthesia, she feels weak all over, during my examination she had severe episodes of back spasm lasting for over a minute, it took me quite a long time to convince her to try 0.5 mg of morphine. In addition her troponin came back at 132, EKG did not show any acute ST-T wave changes consulted cardiology Dr. Rodriguez [facility] course: Patient went for cardiac catheterization which revealed mild-mod LAD lesion FFR 0.99, echo 45% with hypokinesia of the septum and inferior wall. 1 diastolic dysfunction. Decision was made to manage her medically with aspirin and statin and beta-keri, Plavix and heparin were discontinued after 48 hours For L1 compression fracture, she was managed conservatively, she wants to avoid taking opioids but agreeable to as needed usage for severe/cruciated pain. No signs of spinal cord compression. PT recommended home exercise program however OT recommended SNF versus home. She will be discharged home with home health services with a brace and a walker. Pacemaker evaluation did not reveal any arrhythmia, it seems to be functioning well. She did not experience recurrent syncopal events during her hospitalization, D-dimer 0.9 will get CTA before her discharge. Physical Exam Narrative: EXAM NARRATIVE: Patient was laying supine without any active discomfort S1, S2 no arrhythmia however PVCs noted on telemetry No active signs of acute respite distress bilateral breath sounds without rhonchi or crackles Abdomen soft nontender bowel sound present No neurological deficits No signs of spinal cord compression Good strength of upper and lower extremities Awake alert appropriate mood and affect Urinary Catheter Management^: Rodriguez: Cath Placed During This Visit: yes Reason for Continuing Indwelling Catheter: Accurate Measurement of Urinary Output in Critically Ill Patients Urinary Catheter Date of Insertion: 01/14/21 Urinary Catheter Time of Insertion: 19:17 Discharge Data Data Completed and Pending: Completed Studies During Hospitalization Category Date Time Status CT cervical spin wo con* [id number] Stat Cat Scan 01/14/21 17:[address] chest abd pel wo con Stat Cat Scan 01/14/21 17:[address] head wo con* [id number] Stat Cat Scan 01/14/21 17:[address] lumbar spine w o con* [id number] Stat Cat Scan 01/14/21 18:44 Completed CV carotid duplex BI* [id number] Routine Ultrasound 01/15/21 01:21 Completed CV echo complete* [id number] Routine Ultrasound 01/15/21 10:00 Completed Pending at discharge Category Date Time Status 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 Routin e Exams 01/16/21 10:56 Taken Labs from last 24 hours 01/17/21 01/17/21 01/16/21 03:36 03:36 10:08 WBC 17.0 H RBC 4.32 Hgb 12.7 Hct 39.6 MCV 91.7 MCH 29.4 MCHC 32.1 RDW 14.2 Plt Count 252 MPV 9.3 Neut % (Auto) 78.1 Lymph % (Auto) 14.2 [place] % (Auto) 7.0 Eos % (Auto) 0.0 Baso % (Auto) 0.2 Neut # (Auto) 13.27 H Lymph # (Auto) 2.4 [place] # (Auto) 1.2 H Eos # (Auto) 0.0 Baso # (Auto) 0.0 Nucleated RBC % (a uto) 0 Nucleated RBCs # 0.0 APTT 92.1 H Sodium 140 Potassium 3.3 L Chloride 105 Carbon Dioxide 26 Anion Gap 12.3 BUN 11 Creatinine 0.4 L GFR Calculation 157.8 H Glucose 98 Calculated Osmolal ity 289 Calcium 8.9 Total Bilirubin 0.3 AST 16 ALT 14 Alkaline Phosphata se 75 Total Protein 5.7 L Albumin 3.4 L Globulin 2.3 Vitals: Last Vital Signs Temp 98.1 F 01/17/21 10:00 Pulse 60 01/17/21 10:00 Resp 16 01/17/21 10:00 BP 145/80 01/17/21 10:00 Pulse Ox 98 01/17/21 10:00 Discharge Plan Discharge Patient Disposition: Home Condition: Stable Prescriptions: New temazepam 15 mg Capsule 15 mg PO BEDTIME PRN (Reason: Insomnia) 30 Days Qty: 30 RF: 0 oxycodone 10 mg tablet 10 mg PO DAILY PRN (Reason: pain) Qty: 20 RF: 0 acetaminophen 325 mg Tablet 650 mg PO Q6H PRN (Reason: Mild/Mod Pain Or Temp >/= 101) 30 Days Qty: 100 RF: 0 aspirin 81 mg Tablet,Delayed Release (Dr/Ec) 81 mg PO DAILY 30 Days Qty: 30 RF: 3 atorvastatin 40 mg Tablet 40 mg PO BEDTIME 30 Days Qty: 30 RF: 3 lisinopril 5 mg Tablet 5 mg PO DAILY 30 Days Qty: 30 RF: 3 sennosides [senna] 8.6 mg tablet 8.6 mg PO BID 15 Days Qty: 30 RF: 0 Continued cholecalciferol (vitamin D3) 1,250 mcg (50,000 unit) capsule 1,250 mcg PO Q30D RF: 0 atenolol 25 mg tablet 25 mg PO DAILY@06 RF: 0 Discharge Orders: Discharge Order (Routine); Ordered 01/17/21 Ordered By: Vicente Telles Other Ambulatory Orders: DME: Walker (Order) Location: None Selected Ordered By: Vicente Telles Discharge Diet: Cardiac Discharge Activity: Increase activity as tolerated, Use walker/crutches as instructed and As per PT/OT instructions Patient Instructions: Fractures - Compression, Lisinopril (By mouth), Acetaminophen (By mouth), Temazepam (By mouth), Aspirin (By mouth), Laxative, Stimulant (By mouth), Atorvastatin (By mouth), Myocardial Infarction (DC), Pacemaker (DC), Concussion (DC), Left Heart Catheterization (DC) Discharge Attestations Time Spent in Discharge Care*: less than 30 min Quality Metrics Clinical Quality Measures During this hospital stay, did patient experience: AMI Clinical Trial Participant: No Contraindication to aspirin (AMI): Aspirin given Contraindication to statin: Statin prescribed Contraindication to PCI: Intervention not indicated Contraindication to Fibrinolytics: Medical contraindication Coding Level of Care Code Acute Chg FW DC note Diagnoses NSTEMI (non-ST elevated myocardial infarction) I21.4 SSS (sick sinus syndrome) I49.5 HTN (hypertension) I10 Hypertension type: essential hypertension Compression fracture Pacemaker Z95.0 Ventricular arrhythmia I49.9
--- NOTE | 2021-01-17 10:42 | CT_ITS ---
WS: [id number] CTA OF THE CHEST WITH PULMONARY EMBOLISM PROTOCOL TECHNIQUE: High-resolution contrast enhanced CTA of the chest with coronal and sagittal reformatted i mages with pulmonary embolism protocol. MIP images are also reviewed. CLINICAL INFORMATION: PE COMPARISON: CT chest January 14, 2021 DLP: 615.[address] scans at [facility] use at least one of these dose optimization techniques: automat ed exposure control; mA and/or kV adjustment per patient size (includes targeted exams where dose is matched to clinical indication); or iterative reconstruction. FINDINGS: Proximal main pulmonary arteries are normal. Normal segmental and subsegmental pulmonary arteries. No evidence of pulmonary embolus. Normal caliber thoracic aorta. No mediastinal or hilar lymphadenopathy. No axillary lymphadenopathy. Subsegmental atelectasis in the lung bases. Tiny left pleural effusion. A few subcentimeter noncalcif ied pulmonary nodules unchanged from previous. Cardiac pacer. Impression superior endplate L1 similar to previous. CT/CT angio chest PE protcl [id number] IMPRESSION: 1. No evidence for pulmonary embolus. 2. Tiny left pleural effusion with subsegmental atelectasis left lower lobe. 3. No other significant changes from previous.
[2021-01-17] MEDS: iodixanol 320 mg/mL 100mL Btl IV (11:34)
--- NOTE | 2021-01-17 15:59 | PC.NURSE ---
Pt Discharged Pt discharge instructions given at bedside with present. Pt and verbalized understanding of discharge and med teaching. Pt received meds to beds by [facility] pharmacy. IV in right AC and L AC removed, catheter intact, bandage in place. Pt tolerated well. Pt wheeled to [facility] and taken home by .
== END 2021-01-17 15:50 | disposition home or self-care (01) | DRG 281 ==
LOC: ER 17:44 → CSU 22:41 → ICU 23:28
PROVIDERS: Internal Medicine; Admitting Provider Family Medicine; Emergency Provider Family Medicine; PCP Family Medicine; Visit Provider Internal Medicine
PROC: B2111ZZ Fluoroscopy of Multiple Coronary Arteries using Low Osmolar Contrast (ICD-10-PCS; principal; 2021-01-16 11:45)
DX: I21.4 Non-ST elevation (NSTEMI) myocardial infarction (principal); S32.010A Wedge compression fracture of first lumbar vertebra, initial encounter for closed fracture; S06.0X1A Concussion with loss of consciousness of 30 minutes or less, initial encounter; I42.9 Cardiomyopathy, unspecified; Z95.0 Presence of cardiac pacemaker; M25.552 Pain in left hip; W11.XXXA Fall on and from ladder, initial encounter; Y93.9 Activity, unspecified; Y92.000 Kitchen of unspecified non-institutional (private) residence as the place of occurrence of the external cause; I10 Essential (primary) hypertension; I49.5 Sick sinus syndrome; I34.0 Nonrheumatic mitral (valve) insufficiency
CPT/HCPCS: 36415; 51702; 70450; 71250; 71275; 72125; 72131; 74176; 80053; 81001; 82550; 83605; 83735; 83880; 84100; 84443; 84484; 85014; 85018; 85025; 85049; 85378; 85610; 85730; 93005; 93306; 93454; 93571; 93880; 94664; 96361; 96372; 96374; 97116; 97162; 97166; 97530; 97535; 99285; C1769; C1887; C1894; G0378; J0153; J1644; J1650; J2250; J2270; J2405; J3010; J3490; J7030; J7512; J7799; L0456; Q9967

== ENCOUNTER 2021-07-18 07:58 | Outpatient (CLI) | payer MEDICARE, OTHER, SELFPAY ==
--- NOTE | 2021-07-18 08:09 | CT_ITS ---
WS: [id number] CT LUMBAR SPINE TECHNIQUE: Noncontrast CT of the lumbar spine with coronal and sagittal reformatted images. CLINICAL INFORMATION: ACUTE BACK PAIN COMPARISON: January 14, 2021 DLP: 1931.[address] scans at [facility] use at least one of these dose optimization techniques: automated e xposure control; mA and/or kV adjustment per patient size (includes targeted exams where dose is matc hed to clinical indication); or iterative reconstruction. FINDINGS: Mild lumbar curve convex left. No retropulsion. No high-grade central canal stenosis. Slightly more c ompression of the L1 vertebral body today eccentric to the right. No retropulsion. L1-L2: Previous described left shallow pericentral protrusion with migration posterior to the L1 vert ebral body is unchanged. Narrowing of the left subarticular recess. Spinal canal is patent. Foramen a re patent. Mild facet arthropathy. L2-L3: Mild annular bulging. Mild facet arthropathy. Spinal canal and foramen are patent. L3-L4: Mild annular bulging with slight narrowing of the subarticular recess bilaterally. Mild facet arthropathy. Spinal canal and foramen are patent. L4-L5: Mild annular bulging with narrowing of the subarticular recess bilaterally. Mild facet arthrop athy. Mild bilateral foraminal narrowing. L5-S1: Minimal annular bulging. Spinal canal and foramen are patent. Mild facet arthropathy. Visualized pelvic bony structures: Normal. Paravertebral soft tissues: Normal. CT/CT lumbar spine wo con* [id number] IMPRESSION: 1. Mild lumbar curve. No high-grade central canal stenosis. 2. Mild compression L1 vertebral body eccentric to the right slightly progress ed compared to previous likely due to additional recent compression. No retropu lsion. Approximately 20% loss vertebral body height 3. Previous described shallow left subarticular protrusion with migration post erior to the L1 vertebral body is unchanged. Peripheral calcification. Mild enrrique rowing of the subarticular recess. 4. Mild annular bulging with narrowing of the subarticular recess bilaterally L3-L4 and L4-L5. 5. Mild bilateral L4-5 foraminal narrowing. 6. No other significant changes from previous.
--- NOTE | 2021-07-18 08:09 | CT_ITS ---
WS: [id number] CT ABDOMEN PELVIS TECHNIQUE: Noncontrast CT of the abdomen and pelvis with coronal and sagittal reformatted images. CLINICAL INFORMATION: ACUTE BACK PAIN, ABDOMINAL PAIN COMPARISON: CT January 14, 2021 DLP: 708.[address] scans at [facility] use at least one of these dose optimization techniques: automated e xposure control; mA and/or kV adjustment per patient size (includes targeted exams where dose is matc hed to clinical indication); or iterative reconstruction. FINDINGS: Prior hysterectomy. Noncontrast liver is normal. Normal noncontrast spleen. Normal GE junction. Subse gmental atelectasis left greater than right lower lobes. Normal noncontrast gallbladder. Normal GE ju nction. Adrenal glands are normal. Noncontrast pancreas is normal. No hydronephrosis in either kidney . No obstructing renal or ureteral calculi. Normal caliber abdominal aorta. Aortic Calcification. Fat-containing umbilical hernia. Pelvic phlebol iths. Sigmoid diverticulosis. No evidence of acute diverticulitis. No abdominal or pelvic lymphadenop athy. Mild progression of the L1 compression fracture described on the lumbar spine CT. CT/CT abdomen pelvis wo con [id number] IMPRESSION: 1. Mild progression of the L1 compression fracture described on the lumbar spi ne CT 2. Otherwise no acute abdominal findings. 3. Subsegmental atelectasis left lower lobe. 4. Prior hysterectomy.
== END 2021-07-18 07:59 | disposition home or self-care (01) ==
PROVIDERS: PCP Family Medicine; Visit Provider Family Medicine
DX: R10.9 Unspecified abdominal pain (principal); M54.5 Low back pain; S32.019A Unspecified fracture of first lumbar vertebra, initial encounter for closed fracture; X58.XXXA Exposure to other specified factors, initial encounter; Z90.710 Acquired absence of both cervix and uterus; J98.11 Atelectasis
CPT/HCPCS: 72131; 74176

== ENCOUNTER → 2021-09-05 09:04 | Outpatient (BNVA) | payer MEDICARE, OTHER, SELFPAY | PROVIDERS: PCP Family Medicine; Referring Provider Family Medicine; Visit Provider Orthopaedic Surgery | DX: S32.010A Wedge compression fracture of first lumbar vertebra, initial encounter for closed fracture (principal); W19.XXXA Unspecified fall, initial encounter; R10.30 Lower abdominal pain, unspecified | CPT/HCPCS: 72100; 72170 ==

== ENCOUNTER → 2021-09-13 10:10 | Outpatient (BNVA) | payer MEDICARE, OTHER, SELFPAY | PROVIDERS: PCP Family Medicine; Referring Provider Orthopaedic Surgery; Visit Provider Anesthesiology Pain Medicine | DX: G89.29 Other chronic pain (principal); M47.816 Spondylosis without myelopathy or radiculopathy, lumbar region; S32.010A Wedge compression fracture of first lumbar vertebra, initial encounter for closed fracture; M25.551 Pain in right hip; M25.552 Pain in left hip; R10.2 Pelvic and perineal pain; W11.XXXA Fall on and from ladder, initial encounter | CPT/HCPCS: 99205 ==

== ENCOUNTER 2021-11-16 11:40 | Outpatient (RCR) | payer MEDICARE, OTHER, SELFPAY | END 2021-12-04 23:59 | disposition home or self-care (01) | LOC: SPT 11:40 | PROVIDERS: PCP Family Medicine; Referring Provider Anesthesiology Pain Medicine; Visit Provider Anesthesiology Pain Medicine | DX: M54.50 Low back pain, unspecified (principal); G89.29 Other chronic pain | CPT/HCPCS: 97110; 97162 ==

== ENCOUNTER 2021-12-05 06:00 | Outpatient (RCR) | payer MEDICARE, OTHER, SELFPAY | END 2022-01-01 23:59 | disposition home or self-care (01) | LOC: SPT 06:00 | PROVIDERS: PCP Family Medicine; Referring Provider Anesthesiology Pain Medicine; Visit Provider Anesthesiology Pain Medicine | DX: M54.50 Low back pain, unspecified (principal); G89.29 Other chronic pain | CPT/HCPCS: 97110; 97530 ==

== ENCOUNTER 2022-01-02 06:00 | Outpatient (RCR) | payer MEDICARE, OTHER, SELFPAY | END 2022-02-01 23:59 | disposition home or self-care (01) | LOC: SPT 06:00 | PROVIDERS: PCP Family Medicine; Referring Provider Anesthesiology Pain Medicine; Visit Provider Anesthesiology Pain Medicine | DX: M54.50 Low back pain, unspecified (principal); G89.29 Other chronic pain | CPT/HCPCS: 97110 ==

== ENCOUNTER 2022-03-30 15:02 | Inpatient (IN) | payer MEDICARE, OTHER, SELFPAY ==
[2022-03-30] VITALS (10 sets, daily range): BP systolic 140–183; BP diastolic 80–103; PULSE 43–100; RESP 2–18; TEMP 36.4–36.7; O2SAT 94–100; BMI 23.8
--- NOTE | 2022-03-30 15:11 | ECG_ITS ---
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 Measurements Intervals [place] Rate: 83 P: 78 FL: 195 QRS: 107 QRSD: 167 T: 2 QT: 403 QTc: 474 Interpretive Statements Multifocal atrial rhythm with frequent premature ventricular contractions RIGHT AXIS DEVIATION [QRS AXIS > 100] RIGHT BUNDLE BRANCH BLOCK [120+ ms QRS DURATION, UPRIGHT V1, 40+ ms S IN I/aVL/V4/V5/V6] SEPTAL MYOCARDIAL INFARCTION , OF INDETERMINATE AGE [40+ ms Q WAVE IN V1/V2] Compared to ECG 01/14/2021 22:00:56 Ventricular premature complex(es) now present Right-axis deviation now present Myocardial infarct finding now present Left posterior fascicular block no longer present Electronically Signed On 03-30-2022 22:05:41 CDT by Hortencia Murcia M.D. [email or web address]
--- NOTE | 2022-03-30 15:11 | XR_ITS ---
WS: [id number] Exam: XR chest 1V portable [id number] Date/Time of Exam: 03/30/2022 3:13 PM Reason For Exam: chest pain No priors. The lungs are fully expanded and clear. Cardiomediastinal structures are unremarkable for technique. A cardiac pacer is seen over the left chest. Regional bony elements are intact. XR/XR chest 1V portable [id number] IMPRESSION: 1. No acute cardiopulmonary finding.
--- NOTE | 2022-03-30 15:34 | CTR_ITS ---
PROCEDURE INFORMATION: Exam: CT Head Without Contrast Exam date and time: 03/30/2022 4:46 PM Age: 71 years old Clinical indication: Dizziness TECHNIQUE: Imaging protocol: Computed tomography of the head without contrast. Radiation optimization: All CT scans at this facility use at least one of these dose optimization techniques: automated exposure control; mA and/or kV adjustment per patient size (includes targeted exams where dose is matched to clinical indication); or iterative reconstruction. COMPARISON: CT head wo con* [id number] 01/14/2021 6:51 PM RADIATION DOSE METRICS: Total DLP (mGy-cm): 613.59 FINDINGS: Brain: Normal. No hemorrhage. Unremarkable white matter. No mass effect. Cerebral ventricles: No ventriculomegaly. Paranasal sinuses: Visualized sinuses are unremarkable. No fluid levels. Mastoid air cells: Visualized mastoid air cells are well aerated. Bones/joints: Unremarkable. No acute fracture. Soft tissues: Unremarkable. CT/CT head wo con* [id number] IMPRESSION: No acute intracranial abnormality.
--- NOTE | 2022-03-30 15:34 | W.ED.DIZZY ---
HPI - Dizziness General: Chief Complaint: Dizziness Stated Complaint: Dizzy, Cardiac PT Time Seen by Provider: 03/30/22 15:24 History of Present Illness: HPI Narrative: Patient is a 71-year-old female comes to the ED with dizziness. Dizziness started approximately 2 hours prior to arrival. Patient says she was sitting down while the dizziness started to gradually worsen. She describes spinning and off-balance dizziness. Symptoms worsen when she looks down or turns her head to left or right. Denies any shortness of breath, chest pain, nausea/vomiting, bladder or bowel symptoms. Associated symptoms: Denies chest pain, chills, headache(s), nausea, nasal congestion, palpitations or vomiting Associated neuro symptoms: Deny numbness in extremities Review of Systems Const: Denies: fever(s), chills or fatigue Eyes: Denies: change in vision or eye discomfort ENMT: Denies: throat pain, odynophagia, nasal discharge or nasal congestion Card: Denies: chest pain, palpitations, edema, swelling of feet/ankles, dyspnea on exertion or orthopnea Resp: Denies: dyspnea, productive cough or non-productive cough GI: Denies: abdominal pain, nausea, vomiting, diarrhea, constipation or hematochezia : Denies: flank pain, dysuria or hematuria Musc: Denies: neck pain, back pain or extremity swelling Skin/Breast: Denies: rash or new lesions Neuro: Reports: dizziness; Denies: headache(s), numbness in extremities or weakness in extremities PFS ED PFSH: Medical History CAD (coronary artery disease) Cardiomyopathy Compression fracture Compression fracture of L1 lumbar vertebra Concussion Fall HTN (hypertension) Pacemaker SSS (sick sinus syndrome) Syncope Surgical History History of hysterectomy Family History Father CAD (coronary artery disease) of myocardial infarction his 70s Other Diabetes Myocardial infarction Social History Alcohol intake: never Physical Exam Const: COMMON NORMALS: patient oriented x3 and alert GENERAL APPEARANCE: cooperative HENMT: COMMON NORMALS: normocephalic HEAD & SCALP: normocephalic MOUTH: Normal oral and palatal mucosa present THROAT: posterior oropharynx normal and uvula midline Eye: COMMON NORMALS: Equal, round and reactive pupils present, EOMs intact bilaterally and conjunctivae normal CONJUNCTIVA: Yes conjunctivae normal PUPIL: Yes Equal, round and reactive pupils present OTHER: Mild nystagmus noted when patient looking to the left Neck/C-Spine: COMMON NORMALS: supple GENERAL: Yes normal visual inspection Resp: COMMON NORMALS: normal respiratory effort, No retractions, No use of accessory muscles and clear to auscultation bilaterally AUSCULTATION: clear to auscultation bilaterally Cardio: COMMON NORMALS: regular rate, regular rhythm, S1 normal heart sound present, S2 normal heart sound present, No gallops present (Cardio), No clicks present (Cardio), No murmurs present (Cardio) and Peripheral pulses 2+ throughout RATE: regular rate RHYTHM: regular rhythm HEART SOUNDS: S1 normal heart sound present and S2 normal heart sound present PERIPHERAL PULSES: Peripheral pulses 2+ throughout GI: COMMON NORMALS: Normal to inspection, nondistended, normoactive bowel sounds present, Soft to palpation, non-tender and no masses PALPATION: Yes Soft to palpation : COMMON NORMALS: Yes no CVA tenderness BLADDER/KIDNEY EXAM: Yes no CVA tenderness Back/Pelvis: COMMON NORMALS: no CVA tenderness Extremity: COMMON NORMALS: normal to inspection Neuro: COMMON NORMALS: patient oriented x3 and moves all extremities SENSORIUM/ORIENTATION: Yes alert SPEECH: speech normal GAIT: Yes Normal gait present Skin: GENERAL SKIN EXAM: dry skin Course Reevaluation(s): Reevaluation #1: Patient was given half a liter of IV fluids and once they fluids were complete she was feeling better. Her dizziness had improved. She has some mild dizziness when looking to her left. She is able to ambulate back in her baseline status and reports no dizziness when ambulating. Time: 19:50 Reevaluation #2: Patient's 2-hour troponin level came back and it was elevated. The delta was 46.6. She still reports no chest pain or any shortness of breath and her dizziness has improved greatly. I talked with Dr. Lazar and patient will get admitted. I called Dr. Harris told him about patient case and he agreed to have patient admitted to hospital. Time: 20:20 Vital Signs: Vital signs: Vital Signs Temperature 97.6 F 05/27/22 15:07 Pulse Rate 70 03/30/22 21:37 Respiratory Rate 18 03/30/22 21:37 Blood Pressure 140/99 03/30/22 21:37 Pulse Oximetry 95 03/30/22 21:37 MDM - Dizziness Medical Decision Making Patient is a 71-year-old female comes to the ED with dizziness. Symptoms started approximately 2 hours prior to arrival here in the ED. Dizziness is described as a spinning and off-balance feeling that she says worsens whenever she turns her head to the left. Denies any chest pain or shortness of breath. EKG showed sinus rhythm with frequent PVCs noted. No ST segment elevation or depression seen. Patient did have a positive delta Trop of over 46. The rest of her labs are unremarkable. Chest x-ray showed no acute findings and CT head showed no acute findings. I talk with Dr. Lazar about patient case and her need for admission due to elevated troponins. She was given some IV fluids here in the ED and her dizziness symptoms did improve. I contacted Dr. Harris and he accepted admission of patient into the hospital. Lab Data I reviewed the patient's lab results. : 03/30/22 17:12 03/30/22 17:12 Radiology Impressions Chest X-Ray 03/30/22 15:11 IMPRESSION: 1. No acute cardiopulmonary finding. Head CT 03/30/22 15:34 IMPRESSION: No acute intracranial abnormality. Laboratory Results WBC 10.7 10^3/uL (4.0-10.0) H 03/30/22 17:12 RBC 5.31 10^6/uL (4.1-5.3) H 03/30/22 17:12 Hgb 15.8 g/dL (11.5-15.3) H 03/30/22 17:12 Hct 51.3 % (37.0-47.0) H 03/30/22 17:12 MCV 96.6 fl (81-99) 03/30/22 17:12 MCH 29.8 pg (28.0-34.0) 03/30/22 17:12 MCHC 30.8 g/dL (30.0-36.0) 03/30/22 17:12 RDW 14.4 % (12.1-15.1) 03/30/22 17:12 Plt Count 273 10^3/cmm (130-400) 03/30/22 17:12 MPV 9.4 fL (7.4-10.4) 03/30/22 17:12 Neut % (Auto) 78.5 % 03/30/22 17:12 Lymph % (Auto) 14.5 % 03/30/22 17:12 [place] % (Auto) 5.7 % 03/30/22 17:12 Eos % (Auto) 0.3 % 03/30/22 17:12 Baso % (Auto) 0.6 % 03/30/22 17:12 Neut # (Auto) 8.44 10^3/uL (1.8-7.7) H 03/30/22 17:12 Lymph # (Auto) 1.6 10^3/uL (0.8-4.8) 03/30/22 17:12 [place] # (Auto) 0.6 10^3/uL (0.2-0.9) 03/30/22 17:12 Eos # (Auto) 0.0 10^3/uL (0.0-0.8) 03/30/22 17:12 Baso # (Auto) 0.1 10^3/uL (0.0-0.1) 03/30/22 17:12 Nucleated RBC % (auto) 0 % 03/30/22 17:12 Nucleated RBCs # 0.0 /100WBC 03/30/22 17:12 Sodium 140 mmol/L (136-145) 03/30/22 17:12 Potassium 4.3 mmol/L (3.5-5.1) 03/30/22 17:12 Chloride 101 mmol/L (98-107) 03/30/22 17:12 Carbon Dioxide 25 mmol/L (22-29) 03/30/22 17:12 Anion Gap 18.3 (5-19) 03/30/22 17:12 BUN 16 mg/dL (8-23) 03/30/22 17:12 Creatinine 0.5 mg/dL (0.5-0.9) 03/30/22 17:12 GFR Calculation Not Reportable 03/30/22 17:12 Glucose 112 mg/dL (65-115) 03/30/22 17:12 Calculated Osmolality 292 mOsm/kg (285-295) 03/30/22 17:12 Calcium 10.5 mg/dL (8.5-10.5) 03/30/22 17:12 Magnesium 2.2 mg/dL (1.7-2.3) 03/30/22 19:38 Troponin T Baseline 10 ng/L (0-10) 03/30/22 17:12 Troponin T 120 Minute 56.46 ng/L (0-10) H 03/30/22 19:38 Delta Troponin T 46.46 ABS# (0-10) H* 03/30/22 19:38 TSH 2.39 uIU/mL (0.27-4.20) 03/30/22 19:38 Free T4 1.17 ng/dL (0.82-1.77) 03/30/22 19:38 Urine Color Yellow (Yellow) 03/30/22 17:37 Urine Appearance Clear (CLEAR) 03/30/22 17:37 Urine pH 5 (5-7) 03/30/22 17:37 Ur Specific [place] 1.020 (1.005-1.030) 03/30/22 17:37 Urine Protein Neg (Negative) 03/30/22 17:37 Urine Glucose (UA) Norm (Normal) 03/30/22 17:37 Urine Ketones Negative (Negative) 03/30/22 17:37 Urine Blood Neg (Negative) 03/30/22 17:37 Urine Nitrate Negative (Negative) 03/30/22 17:37 Urine Bilirubin Neg (Negative) 03/30/22 17:37 Urine Urobilinogen Norm mg/dL (Negative) 03/30/22 17:37 Ur Leukocyte Esterase 1+ (Negative) H 03/30/22 17:37 Urine RBC 0-4 /hpf (0-2) H 03/30/22 17:37 Urine WBC 10-15 /hpf (0-5) H 03/30/22 17:37 Ur Squamous Epith Cells 10-15 /hpf (0-5) H 03/30/22 17:37 Amorphous Sediment 1+ /hpf 03/30/22 17:37 Urine Bacteria 1+ /hpf (NONE) H 03/30/22 17:37 Discharge Plan Discharge Patient Disposition: Placed in Observation Admit Provider: Basilia Harris Coding Level of Care Code ED Set Up Mechanic Stamping Machines for Chg Fwd Exam Comprehensive
--- NOTE | 2022-03-30 16:11 | PC.NURSE ---
PT placed on continuous NIBP, SpO2, and CM
--- NOTE | 2022-03-30 17:11 | ECG_ITS ---
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 Measurements Intervals [place] Rate: 73 P: 76 [place]: 193 QRS: 108 QRSD: 161 T: 39 QT: 467 QTc: 518 Interpretive Statements SINUS RHYTHM RIGHT AXIS DEVIATION [QRS AXIS > 100] RIGHT BUNDLE BRANCH BLOCK [120+ ms QRS DURATION, UPRIGHT V1, 40+ ms S IN I/aVL/V4/V5/V6] Compared to ECG 03/30/2022 15:27:07 Ventricular premature complex(es) no longer present Myocardial infarct finding no longer present Electronically Signed On 03-30-2022 22:28:02 CDT by Hortencia Murcia M.D. [id number]
[2022-03-30 17:22] LABS: Basophils # 0.1 10^3/uL (0.0-0.1); Basophils % 0.6 %; Eosinophils % 0.3 %; Hematocrit 51.3 % (37.0-47.0); Hemoglobin 15.8 g/dL (11.5-15.3); Lymphocytes # 1.6 10^3/uL (0.8-4.8); Lymphocytes % 14.5 %; Mean Corpuscular HGB Conc 30.8 g/dL (30.0-36.0); Mean Corpuscular Hemoglobin 29.8 pg (28.0-34.0); Mean Corpuscular Volume 96.6 fl (81-99); Mean Platelet Volume 9.4 fL (7.4-10.4); Monocytes # 0.6 10^3/uL (0.2-0.9); Monocytes % 5.7 %; Neutrophils # 8.44 10^3/uL (1.8-7.7); Neutrophils % 78.5 %; Nucleated Red Blood Cells % 0 %; Platelet Count 273 10^3/cmm (130-400); Red Blood Count 5.31 10^6/uL (4.1-5.3); Red Cell Distribution Width 14.4 % (12.1-15.1); White Blood Count 10.7 10^3/uL (4.0-10.0)
[2022-03-30 17:41] LABS: Troponin(5th) Baseline 10 ng/L (0-10)
[2022-03-30 17:42] LABS: Anion Gap 18.3 (5-19); Blood Urea Nitrogen 16 mg/dL (8-23); Calcium 10.5 mg/dL (8.5-10.5); Carbon Dioxide 25 mmol/L (22-29); Chloride 101 mmol/L (98-107); Glucose 112 mg/dL (65-115); Osmolality Calculated 292 mOsm/kg (285-295); Potassium 4.3 mmol/L (3.5-5.1); Sodium 140 mmol/L (136-145)
[2022-03-30] MEDS: sodium chloride 0.9% 500 ML 999 ML IV (18:06)
[2022-03-30 20:01] LABS: Troponin 5 2HR 56.46 ng/L (0-10)
[2022-03-30 20:05] LABS: Troponin 5 2HR Delta 46.46 ABS# (0-10)
--- NOTE | 2022-03-30 21:00 | PM.HP ---
Providers/Chief Complaint Primary Care Provider: Reddy Szymanski MD Chief Complaint: Dizzy, Cardiac PT History of Present Illness The patient is a 71-year-old female who presents to [facility] which started approximately 2:30 PM on March 30, 2022. In addition to this she claims she is recently be having diarrhea as well as lightheadedness. She denies fever, rigors, nausea, vomiting, cough, wheeze, abdominal pain, myalgia, dysuria, chest pain, dyspnea, diaphoresis, palpitations, sense of rapid heartbeat, sensation of irregular heartbeat, diplopia, blurry vision, dysphasia, dysphagia, paresthesia/anesthesia/myasthenia. She present for further evaluation Review of Systems General: Reports: 10 or more systems reviewed and unremarkable except in HPI and below Medications/Allergies Home Medications Medication Instructions Recorded Confirmed Last Taken Type azelaic acid 15 % topical gel 1 applic TOPICAL BID 09/05/21 03/30/22 Unknown History (Finacea) atenolol 25 mg tablet 25 mg PO DAILY@06 #90 tab 11/24/21 03/30/22 03/30/22 Rx Allergies Allergy/AdvReac Type Severity Reaction Status Date / Time Iodine and Iodide Containing Allergy Unknown ALGY-Hives Verified 03/30/22 16:56 Produc ciprofloxacin Allergy Unknown Verified 03/30/22 16:56 codeine Allergy Unknown Verified 03/30/22 16:56 doxycycline Allergy Unknown Verified 03/30/22 16:56 morphine Allergy ADR-Headach Verified 03/30/22 16:56 e sulfamethoxazole Allergy Unknown Verified 03/30/22 16:56 [From Bactrim] trimethoprim [From Bactrim] Allergy Unknown Verified 03/30/22 16:56 PFSH Acute PFSH: Medical History CAD (coronary artery disease) Cardiomyopathy Compression fracture Compression fracture of L1 lumbar vertebra Concussion Fall HTN (hypertension) Pacemaker SSS (sick sinus syndrome) Syncope Surgical History History of hysterectomy Family History Father CAD (coronary artery disease) of myocardial infarction his 70s Other Diabetes Myocardial infarction Social History Alcohol intake: never Vitals/I&O/Wt Last Vital Signs Temp 97.6 F 03/30/22 15:07 Pulse 100 03/30/22 20:28 Resp 18 03/30/22 18:38 BP 167/103 03/30/22 20:28 Pulse Ox 94 03/30/22 20:28 Weight last 48 hrs Weight 63.049 kg Physical Exam Narrative: General: -Alert -No acute distress -No dyspnea -No tachypnea Head: -Atraumatic -Normocephalic Eyes: -Pupils equally round and reactive to light and accommodation -Extraocular muscles intact Neurological: -Cranial nerves II-XII intact Neck: -No jugular venous distention -No thyromegaly -No cervical lymphadenopathy Heart: -Regular rate -Regular rhythm -No murmurs -No gallops -No rubs Lungs: -No wheeze -No rhonchi -No rales ? Abdomen: -Normal bowel sounds in all four quadrants -No rebound -No guarding -No tenderness Extremities: -2/4 pulse in all four extremities -No clubbing -No cyanosis -No edema -No calf tenderness present bilaterally -Negative Nikhil?s sign bilaterally Musculoskeletal: -5/5 bilateral upper extremity strength -5/5 bilateral lower extremity strength -Sensorium of bilateral upper extremities are equal and intact -Sensorium of bilateral lower extremities are equal and intact ? Additional Details / Additional Findings / Exceptions / Miscellaneous: Data : 03/30/22 17:12 03/30/22 17:12 A&P Assessment and plan (1) Facet arthritis, degenerative, lumbar spine: Status: Acute Plan Dizziness. Likely sequelae of dehydration as witnessed by patient hemoconcentration. Monitor hemoglobin level intimately. IV normal saline 100 ML's per hour Elevated troponin, query ACS. I have a low index of suspicion however she is high risk given her previous medical history. Will monitor patient on telemetry and checks her cardiac enzymes. Check TSH, free T4, magnesium level. In the morning we will recheck EKG and check fasting lipid panel. Echo cardiac pending. Lexiscan pending. Aspirin 81 Mill grams by mouth daily plus nitro paste 1/2 inch every 6 hours plus metoprolol 50 Mill cans by mouth twice a day plus Lipitor 40 Mill grams by mouth daily at bedtime Sick sinus syndrome, status post pacemaker placement Degenerative joint disease Degenerative disc disease Diverticulosis Arthritis CHF, ejection fraction 46% with grade 1 diastolic dysfunction. Echo cardiac pending Hypertension. Toprol 50 Mill cans by mouth twice a day +1/2 inch every 6 hours DVT Proflex is. 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
[2022-03-30 21:01] LABS: Add Urine Microscopic? YES; Bilirubin Urine Neg (Negative); Blood Urine Neg (Negative); Glucose Urine UA Norm (Normal); Ketones Urine Negative (Negative); Leukocyte Esterase Urine 1+ (Negative); Nitrate Urine Negative (Negative); Protein Urine Neg (Negative); Urine Appearance Clear (CLEAR); Urine Color Yellow (Yellow); Urobilinogen Urine Norm (Negative); pH Urine 5 (5-7)
[2022-03-30 21:07] LABS: Add Urine Culture? No; Amorphous Sediment Urine 1+ /hpf; Bacteria Urine 1+ /hpf; RBC Urine 0-4 /hpf (0-2)
--- NOTE | 2022-03-30 21:11 | ECG_ITS ---
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 Measurements Intervals [place] Rate: 73 P: 79 [place]: 188 QRS: 118 QRSD: 162 T: 60 QT: 484 QTc: 534 Interpretive Statements SINUS RHYTHM WITH OCCASIONAL VENTRICULAR PREMATURE COMPLEXES INTRAVENTRICULAR CONDUCTION DELAY [130+ ms QRS DURATION] Compared to ECG 03/30/2022 17:14:39 Ventricular premature complex(es) now present Intraventricular conduction delay now present Right-axis deviation no longer present Right bundle-branch block no longer present Electronically Signed On 04-01-2022 20:41:11 CDT by Chinedu Rodriguez M.D. [id number]
[2022-03-30 21:32] LABS: Free T4 Free Thyroxine 1.17 ng/dL (0.82-1.77); Magnesium 2.2 mg/dL (1.7-2.3); Thyroid Stimulating Hormone 2.39 uIU/mL (0.27-4.20)
[2022-03-30] MEDS: sodium chloride 0.9% 1,000 ML 100 ML IV (22:19)
[2022-03-30] MEDS: enoxaparin 40 mg/0.4 mL Syringe SUBCUT (23:03)
[2022-03-31] VITALS (22 sets, daily range): BP systolic 112–145; BP diastolic 56–88; PULSE 20–104; RESP 0–111; TEMP 36.6–36.9; O2SAT 94–99
--- NOTE | 2022-03-31 00:35 | USCV_ITS ---
Jacquie Elliott Age: 71 Gender: F : 1950 Exam Date: 03/31/2022 02:33 Ordering Phys: Basilia Harris DO Technologist: Jonny Butler Exam Location: [facility] [place] Indication: congestive heart failure BP: 141 / 70 HR: 71 Rhythm: Sinus Technical Quality: Adequate MEASUREMENTS (Male / Female) Normal Values 2D ECHO LV Diastolic Diameter PLAX 5.5 cm 4.2 - 5.9 / 3.9 - 5.3 cm LV Systolic Diameter PLAX 4.1 cm IVS Diastolic Thickness 1.4 cm 0.6 - 1.0 / 0.6 - 0.9 cm IVS Systolic Thickness 1.4 cm LVPW Diastolic Thickness 1.3 cm 0.6 - 1.0 / 0.6 - 0.9 cm LVPW Systolic Thickness 1.7 cm LVOT Diameter 2.0 cm LV Ejection Fraction 2D Teich 50.9 % LV Ejection Fraction MOD 2C 47.6 % LV Ejection Fraction 2C AL 47.2 % LA Diameter 2.9 cm LA Width 3.6 cm LA Height 3.6 cm Aorta at Sinotubular Diameter 2.1 cm IVC Diameter 1.8 cm M-MODE Aortic Annulus Diameter 2.7 cm LA Ao Ratio MM 1.2 MV E Point Septal Separation 1.7 cm DOPPLER AV Peak Velocity 118.3 cm/s LVOT Peak Velocity 78.0 cm/s AV Area Cont Eq vti 1.8 cm squared AV Area Cont Eq pk 2.1 cm squared MV E' Velocity 13.0 cm/s Right Atrial Pressure 3.0 mmHg PV Peak Velocity 77.0 cm/s FINDINGS Left Ventricle LV is mildly dilated. LV systolic function is mildly reduced with EF of 45-50%. Mild global hypokinesis. Right Ventricle The right ventricle is normal in size and function. Right Atrium The right atrium is normal in size. Left Atrium The left atrium is normal in size. Mitral Valve Thickened mitral valve without significant stenosis or prolapse. There is mild mitral regurgitation. Aortic Valve Grossly normal without significant sclerosis or stenosis. There is no aortic regurgitation. Tricuspid Valve Structurally normal tricuspid valve without significant stenosis or regurgitation. Pulmonary artery systolic pressure is normal. Pulmonic Valve Grossly normal. There is trace pulmonic regurgitation. Pericardium Normal pericardium without effusion. Aorta Normal ascending aorta dimension. IVC CONCLUSIONS Left ventricle is mildly dilated. LV systolic function is mildly reduced with EF of 45-50% Mild mitral regurgitation Trace pulmonic regurgitation Compared to prior echocardiogram from 01/15/2021, no significant changes are seen Chinedu Rodriguez MD (Electronically Signed) Final Date: 31 Mar 2022 20:27 S
[2022-03-31] MEDS: enoxaparin 80 mg/0.8 mL Syringe 65 MG SUBCUT ×2 (01:07→11:55)
[2022-03-31 05:34] LABS: Basophils # 0.1 10^3/uL (0.0-0.1); Basophils % 0.6 %; Eosinophils # 0.1 10^3/uL (0.0-0.8); Eosinophils % 0.7 %; Hematocrit 44.7 % (37.0-47.0); Hemoglobin 13.7 g/dL (11.5-15.3); Lymphocytes # 2.8 10^3/uL (0.8-4.8); Lymphocytes % 30.5 %; Mean Corpuscular HGB Conc 30.6 g/dL (30.0-36.0); Mean Corpuscular Hemoglobin 29.7 pg (28.0-34.0); Mean Corpuscular Volume 96.8 fl (81-99); Mean Platelet Volume 9.2 fL (7.4-10.4); Monocytes # 0.7 10^3/uL (0.2-0.9); Monocytes % 7.9 %; Neutrophils # 5.46 10^3/uL (1.8-7.7); Neutrophils % 60.1 %; Nucleated Red Blood Cells % 0 %; Platelet Count 260 10^3/cmm (130-400); Red Blood Count 4.62 10^6/uL (4.1-5.3); Red Cell Distribution Width 14.4 % (12.1-15.1); White Blood Count 9.1 10^3/uL (4.0-10.0)
[2022-03-31 05:54] LABS: Cholesterol 296 mg/dL (0-200); HDL Cholesterol 51 mg/dL (60-100); LDL Cholesterol Calculated 212 mg/dL (50-129); LDL HDL Ratio 4.16 RATIO (0.00-3.22); Triglycerides 167 mg/dL (0-150)
--- NOTE | 2022-03-31 08:43 | PC.NURSE ---
Took over care from VALENCIA Ram.
[2022-03-31] MEDS: aspirin 81 mg EC Tablet PO (08:53)
[2022-03-31] MEDS: sodium chloride 0.9% 1,000 ML 100 ML IV (08:53)
--- NOTE | 2022-03-31 10:19 | P.CONIM_ITS ---
Providers/Reason For Consult Consulting Physician/Specialty*: Chinedu Rodriguez MD/Cardiology Reason for Consult*: NSTEMI Requesting Physician: Dr Melton Attending Physician: Zaynab Melton MD Primary Care Provider: Reddy Szymanski MD History of Present Illness History of Present Illness Jacquie Elliott is a 71 year old female with past medical history of hypertension, sick sinus syndrome with a pacemaker in place, moderate CAD and cardiomyopathy who presented to the hospital with complaints of lightheadedness. She felt a sensation of burning in the abdomen and chest. Her troponins increased significantly from 10 at baseline to 138 at 6 hours. Echocardiogram showed mildly reduced LV systolic function. Cardiology was consulted as yesterday she started having significant chest pain. It was substernal and going to the back. EKG showed sinus rhythm with PVCs. Review of Systems Const: Denies: fever(s) or chills Eyes: Denies: change in vision ENMT: Denies: bleeding gums Card: Reports: chest pain and lightheadedness; Denies: palpitations, irregular heart rhythm, swelling of feet/ankles, syncope, pre-syncope or dyspnea on exertion Resp: Denies: wheezing or chest congestion GI: Denies: hematochezia : Denies: hematuria Musc: Reports: back pain; Denies: neck pain Skin/Breast: Reports: dry skin Neuro: Denies: headache(s) or dizziness Psych: Denies: anxiety or depression Endo: Denies: tired all the time Good/Lymph: Denies: easy bruising or easy bleeding All/Imm: Denies: seasonal rhinorrhea Medications/Allergies Home Medications Medication Instructions Recorded Confirmed Last Taken Type azelaic acid 15 % topical gel 1 applic TOPICAL BID 09/05/21 03/30/22 Unknown History (Finacea) atenolol 25 mg tablet 25 mg PO DAILY@06 #90 tab 11/24/21 03/30/22 03/30/22 Rx cholecalciferol (vitamin D3) 125 1 Q7D 04/01/22 03/26/22 History mcg (5,000 unit) capsule 5,000 IU Allergies Allergy/AdvReac Type Severity Reaction Status Date / Time Iodine and Iodide Containing Allergy Unknown ALGY-Hives Verified 03/30/22 16:56 Produc ciprofloxacin Allergy Unknown Verified 03/30/22 16:56 codeine Allergy Unknown Verified 03/30/22 16:56 doxycycline Allergy Unknown Verified 03/30/22 16:56 morphine Allergy ADR-Headach Verified 03/30/22 16:56 e sulfamethoxazole Allergy Unknown Verified 03/30/22 16:56 [From Bactrim] trimethoprim [From Bactrim] Allergy Unknown Verified 03/30/22 16:56 Current Medications Generic Name Dose Route Start Last Admin Trade Name Freq PRN Reason Stop Dose Admin Aspirin 81 mg 03/31/22 09:00 03/31/22 08:53 Aspirin 81 Mg Ec Tablet PO 81 mg DAILY MIKE Administration Atorvastatin Calcium 40 mg 03/30/22 21:57 03/30/22 22:26 Atorvastatin 40 Mg Tablet PO Not Given BEDTIME MIKE Enoxaparin Sodium 65 mg 03/31/22 00:15 03/31/22 01:07 Enoxaparin 80 Mg/0.8 Ml Syringe SUBCUT 65 mg Q12H MIKE Administration Ceftriaxone Sodium 1,000 mg/ 50 mls @ 100 mls/hr 03/30/22 21:57 03/30/22 23:08 Sodium Chloride IV Not Given Q24H IMKE Protocol Sodium Chloride 1,000 mls @ 100 mls/hr 03/30/22 21:57 03/31/22 08:53 Sodium Chloride 0.9% IV 100 mls/hr .Q10H MIKE Administration Metoprolol Tartrate 50 mg 03/30/22 21:57 03/30/22 23:07 Metoprolol Tartrate 50 Mg Tablet PO Not Given BID@0900,2100 MIKE Nitroglycerin 0.5 inch 03/30/22 21:57 03/31/22 02:37 Nitroglycerin 1 Gm/Inch Oint Pkt TOPICAL Not Given Q6H MIKE PFSH Acute PFSH: Medical History CAD (coronary artery disease) Cardiomyopathy Compression fracture Compression fracture of L1 lumbar vertebra Concussion Fall HTN (hypertension) Pacemaker SSS (sick sinus syndrome) Syncope Surgical History History of hysterectomy Family History Father CAD (coronary artery disease) of myocardial infarction his 70s Other Diabetes Myocardial infarction Social History Alcohol intake: never Vitals/I&O/Wt Last Vital Signs Temp 97.9 F 03/31/22 07:36 Pulse 78 03/31/22 07:36 Resp 15 03/31/22 07:36 BP 136/61 03/31/22 07:36 Pulse Ox 99 03/31/22 07:36 03/30/22 03/31/22 03/31/22 22:59 06:59 14:59 Intake Total 500 / 500 180 / 680 1000 / 1000 Balance 500 / 500 180 / 680 1000 / 1000 Weight last 48 hrs Weight 139 lb Physical Exam Narrative: GENERAL: Patient is alert, awake and oriented x3. [] NECK: No jugular vein distension. [] HEENT: No cyanosis. No icterus. No pallor. [] HEART: Regular S1 and S2. No murmur, rub or gallop. [] LUNGS: Clear to auscultate bilaterally. [] ABDOMEN: Soft, nontender and nondistended. Positive bowel sounds. No guarding, rebound or tenderness. [] CENTRAL NERVOUS SYSTEM: Grossly nonfocal. [] EXTREMITIES: Lower extremities with 1+ edema bilaterally. Pulses palpable in the lower extremities, both dorsalis pedis and posterior tibial. [] Data : 04/01/22 04:15 04/01/22 04:15 A&P Assessment and plan (1) Chest pressure: Status: Acute (2) NSTEMI (non-ST elevated myocardial infarction): Status: Acute (3) Dizziness: Status: Acute (4) Pacemaker: Status: Acute (5) PVC (premature ventricular contraction): Status: Acute (6) CAD (coronary artery disease): Status: Acute Qualifiers: Coronary Disease-Associated Artery/Lesion type: [place] artery [place] vs. transplanted heart: [place] heart Associated angina: without angina Qualified Code(s): I25.10 - Atherosclerotic heart disease of [place] coronary artery without angina pectoris (7) HTN (hypertension): Status: Acute Qualifiers: Hypertension type: essential hypertension Qualified Code(s): I10 - Essential (primary) hypertension Plan Patient has presented with lightheadedness and chest pain symptoms. Troponins have significantly trended up consistent with non-ST elevation AK We will perform coronary angiogram with possible percutaneous coronary intervention tomorrow. Risks and benefits of the procedure have been discussed with the patient who understands the risks and benefits with wants to proceed with the procedure. Continue aspirin and anticoagulation. Echocardiogram showing mildly reduced LV systolic function. Nitro as needed. Thank you for involving us with care of this patient. We will continue to fol low. Please call with questions. Consult Attestations Medical Necessity Statement: Care expected to cross 2 midnights Coding Level of Care Code Acute Assistant Corporate Controller for Lilian Fwd Diagnoses Chest pressure R07.89 NSTEMI (non-ST elevated myocardial infarction) I21.4 Dizziness R42 Pacemaker Z95.0 PVC (premature ventricular contraction) I49.3 CAD (coronary artery disease) I25.10 Coronary Disease-Associated Artery/Lesion type: [place] artery [place] vs. transplanted heart: [place] heart Associated angina: without angina HTN (hypertension) I10 Hypertension type: essential hypertension
--- NOTE | 2022-03-31 10:30 | ECG_ITS ---
[facility] Test Date: 2022-03-31 Pat Name: Jacquie Elliott Department: Room: 276 Gender: Female Hris Administrator: : 1950 Requested By: Zaynab Melton Order Number: [id number] Addie MD: Chinedu Rodriguez M.D. Measurements Intervals [place] Rate: 106 P: [place]: QRS: 131 QRSD: 169 T: 50 QT: 397 QTc: 529 Interpretive Statements ATRIAL FIBRILLATION WITH RAPID VENTRICULAR RESPONSE WITH ABERRANT CONDUCTION OR VENTRICULAR PREMATURE COMPLEXES RIGHT BUNDLE BRANCH BLOCK [120+ ms QRS DURATION, UPRIGHT V1, 40+ ms S IN I/aVL/V4/V5/V6] LEFT POSTERIOR FASCICULAR BLOCK [QRS AXIS > 109, INFERIOR Q] Compared to ECG 03/31/2022 00:10:54 Aberrant conduction of supraventricular beat(s) now present Right bundle-branch block now present Left posterior fascicular block now present Sinus rhythm no longer present Intraventricular conduction delay no longer present Electronically Signed On 04-01-2022 20:40:19 CDT by Chinedu Rodriguez M.D. [email or web address]
[2022-03-31] MEDS: nitroglycerin 1 gm/inch oint Pkt 0.5 INCH TOPICAL (10:42)
[2022-03-31] MEDS: ondansetron 2 mg/ML SDV 2 mL 4 MG IVP (10:42)
[2022-03-31] MEDS: atenolol 50 mg Tablet 25 MG PO (10:44)
--- NOTE | 2022-03-31 11:07 | P.PN_ITS ---
Subjective Subjective: Seen this morning. Patient states that she had an episode of chest pressure this morning associated with nausea. She states that she does not want to wear the Nitropaste as it makes her more nauseous. She has also refused to take all other medications ever prescribed to her during this hospital stay except the aspirin and the Lovenox injection. She states that she does not want to take a statin as it makes her nauseous and it messed up with my whole body . She says that she also would like to refuse a stress test because she does not like the fact that we would stress her heart. She would like to avoid situations in which her heart would be stressed. She states that she would be amenable to an angiogram instead. She also says that she is not aware that she had moderate disease in LAD from angiogram last year. She also would like to know what her cholesterol is today. Patient says she has a history of PVCs and she feels that her heart flips and flops in her chest at times. She states when she takes her atenolol she stays stable. She is requesting to take her atenolol instead of metoprolol that she has ordered in the hospital. Patient refusing statin. She does endorse having lower extremity edema by the end of the day which gets better by the next day at times. She denies any shortness of breath. During my evaluation patient again started to have chest pressure substernal area radiating to the back with associated nausea. Patient started crying because of the pain. Stat EKG was was ordered along with troponin. Her only do home medications are atenolol and azelaic acid gel. Verbally she also told me that she takes a baby aspirin. Vitals/I&O/Wt Last Vital Signs Temp 98.1 F 03/31/22 10:42 Pulse 20 L 03/31/22 10:42 Resp 111 H 03/31/22 10:42 BP 145/88 03/31/22 10:42 Pulse Ox 99 03/31/22 10:42 03/30/22 03/31/22 03/31/22 22:59 06:59 14:59 Intake Total 500 / 500 180 / 680 1000 / 1000 Balance 500 / 500 180 / 680 1000 / 1000 Weight last 48 hrs Weight 63.049 kg Physical Exam Narrative: General: Alert oriented x3, patient seen sitting up in bed with present at bedside. Patient appears anxious HEENT: Normocephalic, atraumatic, EOMI, breathing comfortably Cardio: Irregularly irregular, normal S1-S2, no murmurs _ Respiratory: Good bilateral air entry, very mild crackles at left base GI: Abdomen soft, nontender, nondistended, bowel sounds + Behavior: Appropriate and cooperative, very anxious appearing Extremities: Trace to 1+ generalized pitting edema up to the knees Data : 03/31/22 04:37 03/30/22 17:12 A&P Assessment and plan (1) CAD (coronary artery disease): Status: Acute Qualifiers: Coronary Disease-Associated Artery/Lesion type: [place] artery [place] vs. transplanted heart: [place] heart Associated angina: without angina Qualified Code(s): I25.10 - Atherosclerotic heart disease of [place] coronary artery without angina pectoris (2) HTN (hypertension): Status: Acute Qualifiers: Hypertension type: essential hypertension Qualified Code(s): I10 - Essential (primary) hypertension (3) Cardiomyopathy: Status: Acute Qualifiers: Cardiomyopathy type: unspecified Qualified Code(s): I42.9 - Cardiomyopathy, unspecified (4) PVC (premature ventricular contraction): Status: Acute (5) Sick sinus syndrome: Status: Acute (6) Pacemaker: Status: Acute (7) NSTEMI (non-ST elevated myocardial infarction): Status: Acute (8) Dizziness: Status: Acute (9) Chest pressure: Status: Acute Plan #Non-ST elevation IN, chest pressure #Sick sinus syndrome status post pacemaker 1980 #History of PVC #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 Patient got a lot of IV fluids since admission. Have been stopped now. ? Delta troponin 46. She did have angiogram done 2019 showing 40% stenosis in mid LAD moderate disease. Patient was prescribed aspirin and statin at the time for which she refused to take the statin. Today as well patient refused to take statin despite counseling. We will prescribe her PSK 9 inhibitor at discharge as the hospital does not carry Repatha. -Continue on aspirin, Nitropaste every 6 hours, atenolol 25 daily, Lovenox 65 twice daily -For hypertension patient currently has Nitropaste and atenolol on board. Once Nitropaste is off ideally we will have her started on lisinopril prior to discha rge. ? Echocardiogram pending. Cancel stress test. Patient will qualify for cardiac angiogram based on all of the above. ? Plan to premedicate and go for cardiac angiogram in a.m. (discussed with ca rdiology). ? Transfer to ICU for continuous cardiac monitoring as to cardiac stepdown unit is currently closed. ? IV Zofran for nausea ? Cardiac diet for now. -I will repeat chest x-ray today. Check BNP. Patient was counseled quite extensively with present at bedside regarding medications and medical recommendations. She has agreed to have Nitropaste back on. We will also restart atenolol. DVT prophylaxis: On therapeutic dose of Lovenox 65 twice daily will continue. Attestations Medical Necessity Statement*: Patient requires inpatient stay due to active chest pain/pressure and plan for angiogram in a.m. Coding Level of Care Code Acute Web Operations Lead for [facility] Fwd Diagnoses CAD (coronary artery disease) I25.10 Coronary Disease-Associated Artery/Lesion type: [place] artery [place] vs. transplanted heart: [place] heart Associated angina: without angina HTN (hypertension) I10 Hypertension type: essential hypertension Cardiomyopathy I42.9 Cardiomyopathy type: unspecified PVC (premature ventricular contraction) I49.3 Sick sinus syndrome I49.5 Pacemaker Z95.0 NSTEMI (non-ST elevated myocardial infarction) I21.4 Dizziness R42 Chest pressure R07.89
--- NOTE | 2022-03-31 11:11 | PC.NURSE ---
Patient being moved to ICU room 8. Report called to VALENCIA ANAND.
[2022-03-31 11:42] LABS: Troponin T (5th) Once 90 ng/L (0-10)
--- NOTE | 2022-03-31 11:46 | PC.NURSE ---
recieved from 2nd floor alert and oriented at this time no distress at this time on room air ... family at bedside sr with occasional ectopy noted ...
[2022-03-31 11:47] LABS: NT Pro B Type Natriuretic Pept 2580 pg/mL (0-125)
[2022-03-31 11:48] LABS: Estmated Average Glucose 105; Hemoglobin A1C 5.3 % (4.0-6.0)
--- NOTE | 2022-03-31 12:03 | XRR_ITS ---
PROCEDURE INFORMATION: Exam: XR Chest Exam date and time: 03/31/2022 12:55 PM Age: 71 years old Clinical indication: Other: Assess for pulm edema; Prior surgery; Surgery type: Pacemaker TECHNIQUE: Imaging protocol: XR of the chest. Views: 1 view. COMPARISON: CR XR chest 1V portable [id number] 03/30/2022 3:22 PM FINDINGS: Tubes, catheters and devices: Pacemaker unchanged from the prior study. Lungs: Unremarkable. No consolidation. Pleural spaces: Left costophrenic angle is obscured and a small pleural effusion cannot be excluded. Heart/Mediastinum: Cardiomegaly. Vasculature: There is calcified plaque in the aortic knob. Bones/joints: Unremarkable. Other findings: There are hazy opacities overlying the left lung base. XR/XR chest 1V portable [id number] IMPRESSION: 1. Hazy opacities overlying the left lung base are nonspecific. Differential includes pulmonary edema and pneumonia. 2. Left costophrenic angle is obscured raising concern for a small pleural effusion.
[2022-03-31] MEDS: FUROsemide 10 mg/mL SDV 2mL 20 MG IVP (13:54)
--- NOTE | 2022-03-31 14:34 | PC.NURSE ---
up in room aware of chest pain prior and possible test am... bath and linen change done at this time
--- NOTE | 2022-03-31 16:29 | PC.NURSE ---
pt up in room taking monitor leads off and removing blood pressure cuff placed back on at this time ... explained needed to watch closely with chest pain earlier ..
--- NOTE | 2022-03-31 18:25 | PC.NURSE ---
pt up in room frequently removes monitor refuses ntg
--- NOTE | 2022-03-31 21:08 | PC.NURSE ---
Resting comfortably in bed with no reports of chest pain, shortness of breath, or nausea. V/S stable. Patient refusing medications at present time. Reviewed all medications with patient and states that the only ones she is going to take is the Lovenox, ASA, and Atenolol. Instructed patient on importance of taking medications and educated on importance of taking Plavix and other medications prescribed by physician if she were to get a stent in her heart tomorrow. Patient states that she understands and will take medications as prescribed.
[2022-03-31] MEDS: predniSONE 20 mg Tablet 40 MG PO (21:40)
[2022-04-01] VITALS (19 sets, daily range): BP systolic 105–149; BP diastolic 50–88; PULSE 60–74; RESP 14–24; TEMP 36.6–36.9; O2SAT 94–97
[2022-04-01] MEDS: enoxaparin 80 mg/0.8 mL Syringe 65 MG SUBCUT ×2 (00:14→12:00)
[2022-04-01 04:22] LABS: Basophils % 0.5 %; Hematocrit 43.1 % (37.0-47.0); Hemoglobin 14.2 g/dL (11.5-15.3); Lymphocytes # 0.9 10^3/uL (0.8-4.8); Mean Corpuscular HGB Conc 32.9 g/dL (30.0-36.0); Mean Corpuscular Hemoglobin 29.7 pg (28.0-34.0); Mean Corpuscular Volume 90.2 fl (81-99); Mean Platelet Volume 8.9 fL (7.4-10.4); Monocytes # 0.1 10^3/uL (0.2-0.9); Neutrophils # 5.17 10^3/uL (1.8-7.7); Neutrophils % 83.2 %; Nucleated Red Blood Cells % 0 %; Platelet Count 237 10^3/cmm (130-400); Red Blood Count 4.78 10^6/uL (4.1-5.3); Red Cell Distribution Width 14.1 % (12.1-15.1); White Blood Count 6.2 10^3/uL (4.0-10.0)
[2022-04-01 04:45] LABS: Blood Urea Nitrogen 13 mg/dL (8-23); Calcium 9.3 mg/dL (8.5-10.5); Carbon Dioxide 21 mmol/L (22-29); Chloride 104 mmol/L (98-107); Glucose 143 mg/dL (65-115); Magnesium 2.1 mg/dL (1.7-2.3); Osmolality Calculated 287 mOsm/kg (285-295); Sodium 137 mmol/L (136-145)
--- NOTE | 2022-04-01 04:52 | PC.NURSE ---
Assisted patient with bed bath and oral care. Bilat groins shaved for heart cath. Wiped bilat groins and wrists with chlorhexadine wipes. pulses marked.
[2022-04-01] MEDS: sodium chloride 0.9% 1,000 ML 50 ML IV (05:49)
[2022-04-01] MEDS: predniSONE 20 mg Tablet 40 MG PO (05:50)
[2022-04-01] MEDS: diphenhydrAMINE 50 mg Capsule PO (05:50)
[2022-04-01] MEDS: atenolol 50 mg Tablet 25 MG PO (06:01)
--- NOTE | 2022-04-01 06:05 | XACV_ITS ---
Exam Room: [facility] Ht: 163 cm Wt: 63 kg BSA: 1.70 m2 Gender: Female : 1950 Any Known Allergies: Other Exam Priority: Routine Procedure(s): Procedure Description: Diagnostic procedure Procedure Description: Coronary Angiography Procedure Description: Pressure Wire Diagnostic Cath Status: Urgent Diagnostic Findings * Left Main has no disease. * Right Coronary Artery has no disease. * Mid Left Anterior Descending: mild 40% stenosis, JOSE: 3 flow. * Mid Circumflex: mild 40% stenosis, JOSE: 3 flow. * Coronary angiography shows right dominance. Interventional Findings * Procedure detail: We engaged left main artery with XB 3.5 guide catheter. After normalization IFR wire was first advanced into distal LAD and an IFR value of 0.95 was obtained. We then advanced for wire into the left circumflex artery IFR of mid circumflex was nonischemic with a value of 0.99. At this time final angiogram and guide catheter was removed. Patient left the Helicopter Officer in a stable condition.. Conclusions 1. Moderate mid LAD and mid left circumflex artery stenosis. iFR is nonischemic for both vessels.. Recommendations * Aggressive risk factor modification. * Outpatient cardiology follow up in 4 weeks. Interventional RX Recommendation: medical therapy and/or counseling Diagnostic RX Recommendation: medical therapy and/or counseling Pressures Phase:Rest AO : 138 / 73 ( 99 ) @ 8:18:00 AM 111 / 56 ( 78 ) @ 8:53:00 AM Clinical Evaluation EBL: 5mL-10mL Procedural Details Procedure Consent Obtained. Admit Source: In Patient. Pre-Procedure Time Out. Identified patient by full name and date of as verbalized by the patient/guarantor. Does the consent match the physician's order: Yes. Accurate & Complete Informed Consent: Yes. Inpatient/Outpatient History & Physical on Chart: Yes. If H&P is completed, is and addenduem needed: N/A; If yes, is the addendum complete: N/A. Visualize and Verify Site with Patient/Guarantor: N/A. Relevant Radiology Images available: N/A. Pre-op teaching completed and patient verbalized understanding. The risks, benefits, and alternatives of sedation and/or procedure were discussed by physician. The patient agrees to continue. Procedure started. [facility] Clinical Fraility Score: 3: Managing Well. Helicopter Officer Indications: Worsening Angina, NSTEMI. Chest Pain Symptom Assessment: Typical Angina Symptoms. Correct patient, site and procedure confirmed by cath team. Current diagnosis: NSTEMI. PERRLA. Strong, equal hand mental health nurse practitioner bilaterally. Lungs clear x 5 lobes. IV Site on Arrival: 22 gauge in the left forearm. IV Fluids: 0.9% NaCl at KVO. 100 mL infused prior to micro lab analyst. Pre Procedural Pulses: bilateral dorsalis pedis was 2+. Pre Procedural Pulses: right radial was 2+. Oxygen started at 2liters/min via nasal canula. right groin was prepped with chloroprep then draped in the usual sterile fashion. right radial was prepped with chloroprep then draped in the usual sterile fashion. Physician notified. Baseline sample Acquired. HR: 77 BPM. Physician arrived. Physician scrubbed in. Immediate Pre-Procedure Time Out. Correct Patient: Yes; Correct Procedure: Yes; Correct Site: Yes; Correct Patient Position: Yes; Correct Supplies: Yes; Dried Flammable Prep: Yes; Blood Products Available: N/A;. Lidocaine 1% infiltrated to the right radial. Arterial access obtained. A 5 [place] TIG catheter in over wire. Multiple views taken of left coronary artery. Catheter redirected to the RCA. Catheter removed over the standard wire. A 5 [place] JR4 catheter in over wire. Multiple views taken of right coronary artery. Catheter removed over the glide wire. 6 [place] XB 3.5 guide catheter was inserted over the wire. Guide catheter removed over the glidewire. Glidewire removed. Radial access aborted due to vasospasm. Attempting groin access at this time. A TR Band was successful obtaining hemostatsis at the Right Radial artery insertion site. Lidocaine 1% infiltrated to the right groin. Arterial access obtained with micropuncture set. 6 [place] XB 3.5 guide catheter was inserted over the wire. IFR guidewire was advanced through the guide catheter to lesion in the mid LAD. Fractional flow reserve measurements obtained. IFR wire redirected to the Circumflex. Fractional flow reserve measurements obtained of mid circumflex artery. IFR wire removed. Guide catheter removed over the glidewire. A Suture was successful obtaining hemostatsis at the Right Femoral artery insertion site. Sheath(s) sutured into position with 2-0 silk and sterile 4x4's and Op-site applied over the site. No oozing or signs and symptoms of hematoma noted. Arterial sheath flushed and connected to tranducer and pressure bag with heparinized saline. Post Procedure: Pulses reassessed and unchanged. PERRLA. Strong, equal hand mental health nurse practitioner bilaterally. No VTE prophylaxis required. Medication's Wasted: Lidocaine 1% = 3 mL. Medication's Wasted: Nitro = 49.6 mg. Medication's Wasted: Heparin = 3000 u. Total IV fluids: 70 mL. Post-op diagnosis: Non obstructive CAD. Complications: none. Estimated blood loss: 5mL-10mL. Responsiveness - Normal response to verbal stimuli; alert and oriented, PERRLA. Airway - Unaffected, no intervention required; spontaneous ventilation. Circulation: W/N/L, pulses unchanged. Nausea/Vomiting: No. Procedure completed. Patient transferred by bed to ICU. Vital chart was stopped. Access Site Site: Right Radial artery Sheath Size: 6 Fr Hemostasis Method: TR Band Hemostasis Success: Successful Site: Right Femoral artery Sheath Size: 6 Fr Hemostasis Method: Suture Hemostasis Success: Successful Procedure Medications Start: 7:09 AM Stop: 7:09 AM Medication: Versed Amount: 1 mg Route: I.V. Start: 7:14 AM Stop: 7:14 AM Medication: Fentanyl Amount: 50 mcg Route: I.V. Start: 7:15 AM Stop: 7:15 AM Medication: Versed Amount: 1 mg Route: I.V. Start: 7:15 AM Stop: 7:15 AM Medication: Nitrogylcerin Amount: 200 mcg Route: I.A. Start: 7:17 AM Stop: 7:17 AM Medication: Heparin Amount: 5000 units Route: I.V. Start: 7:18 AM Stop: 7:18 AM Medication: Solu-Medrol (methylprednisolone) Amount: 125 mg Route: I.V. Start: 7:25 AM Stop: 7:25 AM Medication: Nitrogylcerin Amount: 200 mcg Route: I.A. Start: 7:26 AM Stop: 7:26 AM Medication: Fentanyl Amount: 25 mcg Route: I.V. Start: 7:33 AM Stop: 7:33 AM Medication: Fentanyl Amount: 25 mcg Route: I.V. Start: 7:33 AM Stop: 7:33 AM Medication: Heparin Amount: 1000 units Route: I.V. Start: 7:36 AM Stop: 7:36 AM Medication: Versed Amount: 1 mg Route: I.V. Start: 7:37 AM Stop: 7:37 AM Medication: Verapamil Amount: 5 mg Route: I.A. I, the attending physician, have reviewed and verified all procedure medications. Yes, all medications given per verbal order History/Risk Factors Hypertension: No Dyslipidemia: Yes Peripheral Arterial Disease (PAD): No Myocardial Infarction ([place]): No Obesity: No Renal Disease: No Prior Interventions PCI: No CABG: No Valve Surgery: No Report Signatures Finalized by Chinedu Rodriguez MD on 04/08/2022 11:13 PM
--- NOTE | 2022-04-01 06:45 | PC.NURSE ---
To medical laboratory assistant via wheelchair, RN at bedside. at bedside.
--- NOTE | 2022-04-01 07:10 | W.PM.OPSUD ---
Surgery/Procedure H&P Update DATE OF PROCEDURE: April 01, 2022 DATE H&P PERFORMED: 03/31/22 H&P UPDATE INFORMATION: I have reviewed H&P completed within last 30 days, I have examined patient prior to procedure and No changes to prior documentation PREOP DIAGNOSIS: NSTEMI PRIMARY INDICATION FOR PROCEDURE: NSTEMI PLANNED PROCEDURE: Operation Date: 04/01/22 07:00 Proposed Procedures p Cardiac Catheterization(Left) - Chinedu Rodriguez M.D Possible percutaneous coronary intervention PATIENT REASSESSED PRIOR TO SEDATION, WITH NO CHANGE NOTED: Yes PHYSICAL EXAM: alert, oriented x 3, clear to auscultation bilaterally and regular rate & rhythm AIRWAY EVAL/ANESTHESIA PLAN: ASA III, Monitored Anesthesia, Local Anesthesia, Risks, benefits & alternatives of sedation and/or procedure discussed and Patient agrees to continue as planned
--- NOTE | 2022-04-01 07:16 | PC.NURSE ---
off unit approximately 0700 with radiographer cardiac catheterization staff
--- NOTE | 2022-04-01 08:31 | P.PN_ITS ---
Subjective Subjective: Patient is doing well. Underwent coronary angiogram with moderate LAD and LCx disease. iFR is non-ischemic for both vessels. No chest pain now. Vitals/I&O/Wt Last Vital Signs Temp 98.4 F 04/01/22 04:00 Pulse 73 04/01/22 05:42 Resp 14 04/01/22 04:00 BP 121/82 04/01/22 04:00 Pulse Ox 96 04/01/22 04:00 03/31/22 04/01/22 04/01/22 22:59 06:59 14:59 Intake Total 600 / 1600 Balance 600 / 1600 Weight last 48 hrs Weight 139 lb Physical Exam Narrative: GENERAL: Patient is alert, awake and oriented x3. [] NECK: No jugular vein distension. [] HEENT: No cyanosis. No icterus. No pallor. [] HEART: Regular S1 and S2. No murmur, rub or gallop. [] LUNGS: Clear to auscultate bilaterally. [] ABDOMEN: Soft, nontender and nondistended. Positive bowel sounds. No guarding, rebound or tenderness. [] CENTRAL NERVOUS SYSTEM: Grossly nonfocal. [] EXTREMITIES: Lower extremities with no edema bilaterally. Pulses palpable in the lower extremities, both dorsalis pedis and posterior tibial. [] Data : 04/01/22 04:15 04/01/22 04:15 A&P Assessment and plan (1) Chest pressure: Status: Acute (2) NSTEMI (non-ST elevated myocardial infarction): Status: Acute (3) Dizziness: Status: Acute (4) Pacemaker: Status: Acute (5) PVC (premature ventricular contraction): Status: Acute (6) CAD (coronary artery disease): Status: Acute Qualifiers: Coronary Disease-Associated Artery/Lesion type: [place] artery [place] vs. transplanted heart: [place] heart Associated angina: without angina Qualified Code(s): I25.10 - Atherosclerotic heart disease of [place] coronary artery without angina pectoris (7) HTN (hypertension): Status: Acute Qualifiers: Hypertension type: essential hypertension Qualified Code(s): I10 - Essential (primary) hypertension Plan Patient has presented with lightheadedness and chest pain symptoms. Troponins significantly trended up consistent with non-ST elevation [place] Coronary angiogram performed today showed moderate mid LAD and mid left circumflex artery stenosis. IFR of both vessels is nonischemic. Medical thera py. Her symptoms likely from coronary vasospasms. Will recommend amlodipine 5 mg daily Continue aspirin. Start statin therapy Echocardiogram showing mildly reduced LV systolic function. Patient can be discharged later in the day from cardiology standpoint Thank you for involving us with care of this patient. Please call with questions. Attestations Medical Necessity Statement*: Care expected to cross 2 midnights. Coding Level of Care Code Acute Activity Coordinator for [facility] Diagnoses Chest pressure R07.89 NSTEMI (non-ST elevated myocardial infarction) I21.4 Dizziness R42 Pacemaker Z95.0 PVC (premature ventricular contraction) I49.3 CAD (coronary artery disease) I25.10 Coronary Disease-Associated Artery/Lesion type: [place] artery [place] vs. transplanted heart: [place] heart Associated angina: without angina HTN (hypertension) I10 Hypertension type: essential hypertension
--- NOTE | 2022-04-01 08:41 | PC.NURSE ---
back from cath la, R wrist TR band site and R groin cath site clean dry and intact
[2022-04-01] MEDS: aspirin 81 mg EC Tablet PO (09:05)
[2022-04-01] MEDS: nitroglycerin 1 gm/inch oint Pkt 0.5 INCH TOPICAL (09:05)
--- NOTE | 2022-04-01 11:10 | P.DS_ITS ---
Discharge Providers Date of Admission: 03/31/22 18:50 Date of Discharge: April 01, 2022 Attending Provider at Admission: Basilia Harris DO Attending Provider at Discharge: Zaynab Melton MD Primary Care Provider: Reddy Szymanski MD Diagnoses at Discharge Discharge Diagnosis (1) Chest pressure: Status: Acute (2) NSTEMI (non-ST elevated myocardial infarction): Status: Acute (3) Dizziness: Status: Acute (4) Pacemaker: Status: Acute (5) PVC (premature ventricular contraction): Status: Acute (6) CAD (coronary artery disease): Status: Acute Qualifiers: Associated angina: without angina Coronary Disease-Associated Artery/Lesion type: [place] artery [place] vs. transplanted heart: [place] heart Qualified Code(s): I25.10 - Atherosclerotic heart disease of [place] coronary artery without angina pectoris (7) HTN (hypertension): Status: Acute Qualifiers: Hypertension type: essential hypertension Qualified Code(s): I10 - Essential (primary) hypertension Reason for Visit Reason for Visit: Dizzy, Cardiac PT Brief History: As per Dr. Harris, The patient is a 71-year-old female who presents to [facility] which started approximately 2:30 PM on March 30, 2022.? In addition to this she claims she is recently be having diarrhea as well as lightheadedness.? She denies fever, rigors, nausea, vomiting, cough, wheeze, abdominal pain, myalgia, dysuria, chest pain, dyspnea, diaphoresis, palpitations, sense of rapid heartbeat, sensation of irregular heartbeat, diplopia, blurry vision, dysphasia, dysphagia, paresthesia/anesthesia/myasthenia.? She present for further evaluation Hospital Course Hospital Course Presented to the hospital with dizziness. It was thought to be dehydration at first and she was resuscitated with IV fluids. She continued to do well however her delta troponin was 46. She did have an angiogram done in 2019 which showed 40% stenosis in mid LAD with moderate disease. She was treated as an NSTEMI. She was given therapeutic Lovenox, aspirin, Nitropaste, atenolol. Patient refused to take her Nitropaste and took it off. She also refused to take the statin. She states that she was prescribed that in the past and she had a lot of nausea and it did not work with her and therefore she will not take it. She also refused a stress test. When she was being examined by hospitalist in the morning she started to have chest pressure radiating to the back associated with nausea. EKG showed multiple PVCs. In light of elevated troponin, history of moderate disease of mid LAD and having active chest pressure and the fact that patient was not on aspirin and statin over coming to the hospital it was decided to consult cardiology for potential angiogram. Patient was kept n.p.o. at midnight and next morning went for angiogram which showed nonobstructive coronary artery disease and similar findings as previous year. Echo did not show any gross wall motion abnormalities. Most likely patient has coronary vasospasms. Patient did have a very small left pleural effusion for which she received 20 mg of IV Lasix. She has been advised to take aspirin, amlodipine 5, atenolol, statin however she did not want to take the statin. Patient preliminarily also refused repatha. I will let her follow-up with her primary care doctor to have further options. She will follow-up with cardiology within a week of discharge and her primary care doctor within 4 to 7 days of discharge. Therefore I will not be prescribing Repatha at discharge today. Her lipid p nemesio did come back with LDL 212, total cholesterol 296, HDL 51. I have discussed with the patient her need to be on cholesterol medication to which she does agree. Please see my progress note 03/31/2022 for further details of her detailed hospital course. Physical Exam Narrative: General: Alert oriented x3, patient seen sitting up in bed with present at bedside.? Patient appears anxious HEENT: Normocephalic, atraumatic, EOMI, breathing comfortably Cardio: Irregularly irregular, normal S1-S2, no murmurs Respiratory: Good bilateral air entry, clear to ausculation bilaterally. GI: Abdomen soft, nontender, nondistended, bowel sounds + Behavior: Appropriate and cooperative, very anxious appearing Extremities: Trace to 1+ generalized pitting edema up to the knee Discharge Data Studies Completed and Pending Completed Studies During Hospitalization Category Date Time Status CT head wo con* [id number] Urgent Cat Scan 03/30/22 15:34 Completed XR chest 1V portable [id number] Urgent Exams 03/30/22 15:11 Completed XR chest 1V portable [id number] Urgent Exams 03/31/22 12:03 Completed CV. echo complete* [id number] Routine Ultrasound 03/31/22 00:35 Completed Pending at discharge Category Date Time Status CASE MANAGEMENT DIRECTOR request for service Routine Exams 04/01/22 06:05 Taken PTT [Partial Thromboplastin Time] Routine Lab 04/01/22 10:00 Ordered NM hallie perf SPECT r/s* [id number] Routine Nuc Med 04/03/22 08:00 Ordered Radiology Impressions Head CT 03/30/22 15:34 IMPRESSION: No acute intracranial abnormality. Chest X-Ray 03/31/22 12:03 IMPRESSION: 1. Hazy opacities overlying the left lung base are nonspecific. Differential includes pulmonary edema and pneumonia. 2. Left costophrenic angle is obscured raising concern for a small pleural effusion. Laboratory Results WBC 6.2 10^3/uL (4.0-10.0) 04/01/22 04:15 RBC 4.78 10^6/uL (4.1-5.3) 04/01/22 04:15 Hgb 14.2 g/dL (11.5-15.3) 04/01/22 04:15 Hct 43.1 % (37.0-47.0) 04/01/22 04:15 MCV 90.2 fl (81-99) D 04/01/22 04:15 MCH 29.7 pg (28.0-34.0) 04/01/22 04:15 MCHC 32.9 g/dL (30.0-36.0) D 04/01/22 04:15 RDW 14.1 % (12.1-15.1) 04/01/22 04:15 Plt Count 237 10^3/cmm (130-400) 04/01/22 04:15 MPV 8.9 fL (7.4-10.4) 04/01/22 04:15 Neut % (Auto) 83.2 % 04/01/22 04:15 Lymph % (Auto) 15.0 % 04/01/22 04:15 [place] % (Auto) 1.0 % 04/01/22 04:15 Eos % (Auto) 0.0 % 04/01/22 04:15 Baso % (Auto) 0.5 % 04/01/22 04:15 Neut # (Auto) 5.17 10^3/uL (1.8-7.7) 04/01/22 04:15 Lymph # (Auto) 0.9 10^3/uL (0.8-4.8) 04/01/22 04:15 [place] # (Auto) 0.1 10^3/uL (0.2-0.9) L 04/01/22 04:15 Eos # (Auto) 0.0 10^3/uL (0.0-0.8) 04/01/22 04:15 Baso # (Auto) 0.0 10^3/uL (0.0-0.1) 04/01/22 04:15 Nucleated RBC % (auto) 0 % 04/01/22 04:15 Nucleated RBCs # 0.0 /100WBC 04/01/22 04:15 Sodium 137 mmol/L (136-145) 04/01/22 04:15 Potassium 4.0 mmol/L (3.5-5.1) 04/01/22 04:15 Chloride 104 mmol/L (98-107) 04/01/22 04:15 Carbon Dioxide 21 mmol/L (22-29) L 04/01/22 04:15 Anion Gap 16.0 (5-19) 04/01/22 04:15 BUN 13 mg/dL (8-23) 04/01/22 04:15 Creatinine 0.4 mg/dL (0.5-0.9) L 04/01/22 04:15 GFR Calculation Not Reportable 04/01/22 04:15 Glucose 143 mg/dL (65-115) H 04/01/22 04:15 Estimat Average Glucose 105 03/31/22 04:37 Hemoglobin A1c 5.3 % (4.0-6.0) 03/31/22 04:37 Calculated Osmolality 287 mOsm/kg (285-295) 04/01/22 04:15 Calcium 9.3 mg/dL (8.5-10.5) 04/01/22 04:15 Magnesium 2.1 mg/dL (1.7-2.3) 04/01/22 04:15 Troponin T Gen 5 ng/L 90 ng/L (0-10) H 03/31/22 10:50 Troponin T Baseline 10 ng/L (0-10) 03/30/22 17:12 Troponin T 120 Minute 56.46 ng/L (0-10) H 03/30/22 19:38 Delta Troponin T 46.46 ABS# (0-10) H* 03/30/22 19:38 Troponin T Hi Sens 6Hr 138.0 ng/L (0-10) H 03/30/22 23:15 Troponin T Hi Sens 6Hr Delta 128.0 ng/L (0-12) H* 03/30/22 23:15 NT-Pro-B Natriuret Pep 2580 pg/mL (0-125) H 03/31/22 10:50 Triglycerides 167 mg/dL (0-150) H 03/31/22 04:37 Cholesterol 296 mg/dL (0-200) H 03/31/22 04:37 LDL Cholesterol, Calc 212 mg/dL (50-129) H 03/31/22 04:37 HDL Cholesterol 51 mg/dL (60-100) L 03/31/22 04:37 LDL/HDL Ratio 4.16 RATIO (0.00-3.22) H 03/31/22 04:37 Cholesterol/HDL Ratio 5.80 mg/dL (0.0-4.40) H 03/31/22 04:37 TSH 2.39 uIU/mL (0.27-4.20) 03/30/22 19:38 Free T4 1.17 ng/dL (0.82-1.77) 03/30/22 19:38 Urine Color Yellow (Yellow) 03/30/22 17:37 Urine Appearance Clear (CLEAR) 03/30/22 17:37 Urine pH 5 (5-7) 03/30/22 17:37 Ur Specific Chambers 1.020 (1.005-1.030) 03/30/22 17:37 Urine Protein Neg (Negative) 03/30/22 17:37 Urine Glucose (UA) Norm (Normal) 03/30/22 17:37 Urine Ketones Negative (Negative) 03/30/22 17:37 Urine Blood Neg (Negative) 03/30/22 17:37 Urine Nitrate Negative (Negative) 03/30/22 17:37 Urine Bilirubin Neg (Negative) 03/30/22 17:37 Urine Urobilinogen Norm mg/dL (Negative) 03/30/22 17:37 Ur Leukocyte Esterase 1+ (Negative) H 03/30/22 17:37 Urine RBC 0-4 /hpf (0-2) H 03/30/22 17:37 Urine WBC 10-15 /hpf (0-5) H 03/30/22 17:37 Ur Squamous Epith Cells 10-15 /hpf (0-5) H 03/30/22 17:37 Amorphous Sediment 1+ /hpf 03/30/22 17:37 Urine Bacteria 1+ /hpf (NONE) H 03/30/22 17:37 Vitals Last Vital Signs Temp 98.4 F 04/01/22 04:00 Pulse 60 04/01/22 09:00 Resp 17 04/01/22 09:00 BP 149/84 04/01/22 07:00 Pulse Ox 95 04/01/22 08:15 Discharge Plan Discharge Patient Disposition: Home Condition: Stable Prescriptions: New aspirin 81 mg Tablet,Delayed Release (Dr/Ec) 81 mg PO DAILY 30 Days Qty: 30 0RF amlodipine 5 mg tablet 5 mg PO DAILY 30 Days Qty: 30 0RF Continued atenolol 25 mg tablet 25 mg PO DAILY@06 Qty: 90 3RF azelaic acid [Finacea] 15 % gel 1 applic topical BID 0RF cholecalciferol (vitamin D3) 125 mcg (5,000 unit) Capsule 5,000 unit PO Q7D 0RF Rx Instructions: On Mondays Discharge Orders: Discharge Order (Routine); Ordered 04/01/22 Ordered By: Zaynab Melton Referrals: Linda Jaime FNP [Nurse Practitioner] - 1 week Reddy Szymanski MD [Primary Care Provider] - 4-7 days Discharge Diet: Cardiac Discharge Activity: Limit activity as instructed Patient Instructions: Opioid Safety Activity Restrictions/Additional Instructions: Please discuss medication options with primary care doctor for your high cholesterol. Please see primary doctor within 4-7 days of discharge. Discharge Attestations Time Spent in Discharge Care*: greater than 30 min Quality Metrics Clinical Quality Measures [ No reported AMI, CVA or VTE this stay] Coding Level of Care Code Acute g FW ND note Diagnoses Chest pressure R07.89 NSTEMI (non-ST elevated myocardial infarction) I21.4 Dizziness R42 Pacemaker Z95.0 PVC (premature ventricular contraction) I49.3 CAD (coronary artery disease) I25.10 Associated angina: without angina Coronary Disease-Associated Artery/Lesion type: [place] artery [place] vs. transplanted heart: [place] heart HTN (hypertension) I10 Hypertension type: essential hypertension
[2022-04-01 13:46] LABS: Partial Thromboplastin Time 51.1 SECONDS (23.9-36.7)
--- NOTE | 2022-04-01 14:43 | PC.NURSE ---
R groin heart cath removed, R wrist TR band removed, both removed per policy and clean dry and intact at this time
--- NOTE | 2022-04-01 17:40 | PC.NURSE ---
patient concerned about taking new amlodipine upon d/c and current atenolol, Dr. Melton notified and advised to ler patient know it is HCP recommendation to take both
--- NOTE | 2022-04-01 18:51 | PC.NURSE ---
D/C instructions educated to patient and , no questions or concerns expressed, patient signed D/C paperwork
--- NOTE | 2022-04-01 20:20 | PC.NURSE ---
Pt pink, warm, and dry. Groin site without hematoma or swelling. Dressing dry and intact. Pedal pulses normal. LCTA, Heart regular. 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 No further questions or concerns.
== END 2022-04-01 20:15 | disposition home or self-care (01) | DRG 281 ==
LOC: ER 20:25 → MEDSURG 21:13 → ICU 03-31 11:22
PROVIDERS: Emergency Medicine; Internal Medicine; Admitting Provider Internal Medicine; Emergency Provider Physician Assistant; PCP Family Medicine; Visit Provider Internal Medicine
PROC: B2111ZZ Fluoroscopy of Multiple Coronary Arteries using Low Osmolar Contrast (ICD-10-PCS; principal; 2022-04-01 07:00)
DX: I21.4 Non-ST elevation (NSTEMI) myocardial infarction (principal); I42.9 Cardiomyopathy, unspecified; I50.42 Chronic combined systolic (congestive) and diastolic (congestive) heart failure; I25.111 Atherosclerotic heart disease of native coronary artery with angina pectoris with documented spasm; M47.816 Spondylosis without myelopathy or radiculopathy, lumbar region; I11.0 Hypertensive heart disease with heart failure; Z95.0 Presence of cardiac pacemaker; E86.0 Dehydration; I49.3 Ventricular premature depolarization; E78.5 Hyperlipidemia, unspecified; Z91.041 Radiographic dye allergy status
CPT/HCPCS: 36415; 70450; 71045; 80048; 80061; 81001; 83036; 83735; 83880; 84439; 84443; 84484; 85025; 85730; 93005; 93306; 93454; 93571; 96360; 96372; 96374; 99152; 99153; 99285; C1769; C1887; C1894; G0378; J1644; J1650; J1940; J2250; J2405; J2930; J3010; J3490; J7030; J7040; J7512; Q0163; Q9967

== ENCOUNTER → 2022-04-10 10:36 | Outpatient (BNVA) | payer MEDICARE, OTHER, SELFPAY | PROVIDERS: PCP Family Medicine; Visit Provider Nurse Practitioner Family | DX: I25.10 Atherosclerotic heart disease of native coronary artery without angina pectoris (principal) | CPT/HCPCS: 36415; 80048; 99213; 99214 ==

== ENCOUNTER → 2022-05-18 09:21 | Outpatient (BNVA) | payer MEDICARE, OTHER, SELFPAY | PROVIDERS: PCP Family Medicine; Visit Provider Internal Medicine Cardiovascular Disease | DX: Z45.010 Encounter for checking and testing of cardiac pacemaker pulse generator [battery] (principal) | CPT/HCPCS: 93280 ==

== ENCOUNTER → 2022-06-11 10:41 | Outpatient (BNVA) | payer MEDICARE, OTHER, SELFPAY | PROVIDERS: PCP Family Medicine; Visit Provider Internal Medicine Cardiovascular Disease | DX: I25.10 Atherosclerotic heart disease of native coronary artery without angina pectoris (principal); I10 Essential (primary) hypertension; Z95.0 Presence of cardiac pacemaker | CPT/HCPCS: 99214 ==

== ENCOUNTER → 2022-11-23 09:55 | Outpatient (BNVA) | payer MEDICARE, OTHER, SELFPAY | PROVIDERS: PCP Family Medicine; Visit Provider Internal Medicine Cardiovascular Disease | DX: I25.10 Atherosclerotic heart disease of native coronary artery without angina pectoris (principal); I10 Essential (primary) hypertension; I42.9 Cardiomyopathy, unspecified; Z95.0 Presence of cardiac pacemaker; I49.5 Sick sinus syndrome | CPT/HCPCS: 93280; 99214; Q3014 ==

== ENCOUNTER → 2023-01-01 09:54 | Outpatient (BNVA) | payer MEDICARE, OTHER, SELFPAY | PROVIDERS: PCP Family Medicine; Visit Provider Family Medicine | DX: E55.9 Vitamin D deficiency, unspecified (principal) | CPT/HCPCS: 82306 ==

== ENCOUNTER 2023-03-22 09:51 | Outpatient (RCR) | payer MEDICARE, OTHER, SELFPAY | END 2023-04-03 23:59 | disposition home or self-care (01) | LOC: SPT 09:51 | PROVIDERS: PCP Family Medicine; Visit Provider Family Medicine | DX: M54.9 Dorsalgia, unspecified (principal) | CPT/HCPCS: 97110; 97161 ==

== ENCOUNTER 2023-04-04 06:00 | Outpatient (RCR) | payer MEDICARE, OTHER, SELFPAY | END 2023-05-03 23:59 | disposition home or self-care (01) | LOC: SPT 06:00 | PROVIDERS: PCP Family Medicine; Visit Provider Family Medicine | DX: M54.9 Dorsalgia, unspecified (principal) | CPT/HCPCS: 97110 ==

== ENCOUNTER 2023-06-25 08:47 | Outpatient (CLI) | payer MEDICARE, OTHER, SELFPAY ==
--- NOTE | 2023-06-25 09:00 | CT_ITS ---
WS: [id number] NONCONTRAST CT RIGHT HIP TECHNIQUE: Noncontrast CT RIGHT hip with coronal and sagittal reformatted images. CLINICAL INFORMATION: hip pain COMPARISON: None. DLP: 314.[address] scans at [facility] use at least one of these dose optimization techniques: automated e xposure control; mA and/or kV adjustment per patient size (includes targeted exams where dose is matc hed to clinical indication); or iterative reconstruction. FINDINGS: Mild degenerative arthritis RIGHT hip. No acute fractures. Normal femoral head and neck. No evidence of avascular necrosis. No acute fractures. Proximal visualized femoral shaft is normal. Normal acetab ulum. Mild degenerative arthritis RIGHT sacroiliac joint. Sigmoid diverticulosis. Trace free fluid in the RIGHT cul-de-sac. Pelvic phleboliths. IMPRESSION: Mild degenerative arthritis RIGHT hip. No acute fractures.
== END 2023-06-25 08:48 | disposition home or self-care (01) ==
PROVIDERS: PCP Family Medicine; Visit Provider Family Medicine
DX: M16.11 Unilateral primary osteoarthritis, right hip (principal)
CPT/HCPCS: 73700

== ENCOUNTER → 2023-08-01 14:10 | Outpatient (BNVA) | payer MEDICARE, OTHER, SELFPAY | PROVIDERS: PCP Family Medicine; Visit Provider Student in an Organized Health Care Education/Training Program | DX: M25.551 Pain in right hip (principal); M47.816 Spondylosis without myelopathy or radiculopathy, lumbar region | CPT/HCPCS: 73502; 99203 ==

== ENCOUNTER → 2023-08-15 15:33 | Outpatient (BNVA) | payer MEDICARE, OTHER, SELFPAY | PROVIDERS: PCP Family Medicine; Visit Provider Orthopaedic Surgery | DX: M47.819 Spondylosis without myelopathy or radiculopathy, site unspecified (principal); M81.0 Age-related osteoporosis without current pathological fracture; S32.019S Unspecified fracture of first lumbar vertebra, sequela; X58.XXXS Exposure to other specified factors, sequela; M41.80 Other forms of scoliosis, site unspecified; M16.11 Unilateral primary osteoarthritis, right hip | CPT/HCPCS: 72110; 99214 ==

== ENCOUNTER → 2024-01-07 14:18 | Outpatient (BNVA) | payer MEDICARE, OTHER, SELFPAY | PROVIDERS: PCP Family Medicine; Visit Provider Internal Medicine | DX: I25.10 Atherosclerotic heart disease of native coronary artery without angina pectoris (principal); I10 Essential (primary) hypertension; I42.9 Cardiomyopathy, unspecified; Z95.0 Presence of cardiac pacemaker | CPT/HCPCS: 99214 ==

== ENCOUNTER 2024-03-10 19:17 | Inpatient (IN) | payer MEDICARE, OTHER, SELFPAY ==
[2024-03-10] VITALS (7 sets, daily range): BP systolic 109–178; BP diastolic 85–96; PULSE 77–118; RESP 18–26; TEMP 37; O2SAT 93–100
--- NOTE | 2024-03-10 19:21 | XRR_ITS ---
PROCEDURE INFORMATION: Exam: XR Chest Exam date and time: 03/10/2024 7:26 PM Age: 73 years old Clinical indication: Other: AMS; Prior surgery; Surgery date: 6+ months; Surgery type: Pacer; Additional info: CVA TECHNIQUE: Imaging protocol: Radiologic exam of the chest. Views: 1 view. COMPARISON: CR XR chest 1V portable [id number] 03/31/2022 12:55 PM FINDINGS: Lungs: Unremarkable. No consolidation. Pleural spaces: Unremarkable. No pleural effusion. No pneumothorax. Heart/Mediastinum: Unchanged Bones/joints: No acute findings. XR/XR chest 1V portable [id number] IMPRESSION: No acute findings.
--- NOTE | 2024-03-10 19:21 | CTR_ITS ---
PROCEDURE INFORMATION: Exam: CT Head Without Contrast Exam date and time: 03/10/2024 7:24 PM Age: 73 years old Clinical indication: Stroke-like symptoms; Visual disturbance and other: Symptoms of acute stroke; RT lower extremity weakness TECHNIQUE: Imaging protocol: Computed tomography of the head without contrast. Radiation optimization: All CT scans at this facility use at least one of these dose optimization techniques: automated exposure control; mA and/or kV adjustment per patient size (includes targeted exams where dose is matched to clinical indication); or iterative reconstruction. Other technique: STROKE PROTOCOL was implemented. COMPARISON: CT head wo con* [id number] 03/30/2022 4:46 PM RADIATION DOSE METRICS: Total DLP (mGy-cm): 942 FINDINGS: Brain: Normal. No hemorrhage. Unremarkable white matter. No mass effect. Cerebral ventricles: No ventriculomegaly. Paranasal sinuses: Visualized sinuses are unremarkable. No fluid levels. Mastoid air cells: Visualized mastoid air cells are well aerated. Bones: Unremarkable. No acute fracture. Soft tissues: Unremarkable. CT/CT head thrombolytic [id number] IMPRESSION: No acute intracranial abnormality. ASSESSMENT: ASPECTS ([place] Stroke Program Early CT Score) is 10.
--- NOTE | 2024-03-10 19:31 | ECG_ITS ---
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 Measurements Intervals [place] Rate: 102 P: 84 RI: 194 QRS: 112 QRSD: 154 T: -24 QT: 396 QTc: 517 Interpretive Statements Atrial fibrillation with rapid ventricular rate, premature ventricular contractions SUPRAVENTRICULAR PREMATURE COMPLEXES RIGHT BUNDLE BRANCH BLOCK [120+ ms QRS DURATION, UPRIGHT V1, 40+ ms S IN I/aVL/V4/V5/V6] LEFT POSTERIOR FASCICULAR BLOCK [QRS AXIS > 109, INFERIOR Q] Compared to ECG 03/31/2022 10:32:39 Atrial fibrillation no longer present Aberrant conduction of supraventricular beat(s) no longer present Electronically Signed On 03-10-2024 23:01:24 CDT by Hortencia Murcia M.D. [email or web address]
--- NOTE | 2024-03-10 19:38 | ED_ITS ---
HPI - Neuro Symptoms/Deficit 2 General: Chief Complaint: Neuro Symptoms/Deficit Stated Complaint: Possible Stroke Time Seen by Provider: 03/10/24 19:24 History of Present Illness: Patient presents to the ER with sudden onset garbled speech and vision changes. This started about 1900 hrs. Patient is never had these before. Patient is not on any type of anticoagulation. Patient has good strength in all 4 extremities. Upon arrival patient was taken immediately back to the CT scanner where she said her vision is improving and. By the time we got her back to the room she is having better speech production. Patient's blood pressure initially upon arrival was 200/98 and then to recheck was approximately 178 systolic Patient does have a pacemaker for sick sinus syndrome when she sees Dr. Simon him Review of Systems 2 General: Reports: 10 or more systems reviewed and unremarkable except in HPI and below PFSH ED 2 PFSH: Medical History CAD (coronary artery disease) Compression fracture Syncope Concussion Fall Compression fracture of L1 lumbar vertebra SSS (sick sinus syndrome) HTN (hypertension) Pacemaker Cardiomyopathy Surgical History History of hysterectomy Family History Father CAD (coronary artery disease) of myocardial infarction his 70s Other Diabetes Myocardial infarction Social History Smoking and tobacco/nicotine status: never used tobacco/nicotine Alcohol intake: never Substance/Drug Use: never NIH stroke score 2 NIHSS: Level Of Consciousness - 1a: 0 Level Of Consciousness Questions - 1b: Both Correct Level Of Consciousness Commands - 1c: Both Correct Best Gaze - 2: Normal Visual Crowley - 3: No Visual Loss Facial Palsy - 4: N ormal Motor Arm Right - 5: No Drift Motor Arm Left - 5: No Drift Motor Leg Right - 6: No Drift Motor Leg Left - 6: No Drift Limb Ataxia - 7: A bsent Sensory - 8: Normal Best Language - 9: No Aphasia Dysarthia - 10: Normal Extinction And Inattention - 11: 0 Score: Total Score: 0 Physical Exam 2 Const: COMMON NORMALS: no acute distress, average body habitus, patient oriented x3, no limitations, healthy appearing, alert and well nourished HENMT: COMMON NORMALS: normocephalic, atraumatic, hearing grossly normal bilaterally, external ears normal, Normal external nose present and oropharynx normal HEAD & SCALP: normocephalic and atraumatic NOSE: Normal external nose present EXTERNAL EAR: Yes external ears normal Eye: COMMON NORMALS: Equal, round and reactive pupils present, EOMs intact bilaterally, conjunctivae normal and no scleral icterus CONJUNCTIVA: Yes conjunctivae normal PUPIL: Yes Equal, round and reactive pupils present Neck/C-Spine: COMMON NORMALS: full ROM, no lymphadenopathy, supple, no meningeal signs, no JVD and Thyroid normal THYROID: Thyroid normal Chest: COMMONS NORMALS: normal inspection of the chest and normal palpation of entire chest wall Resp: COMMON NORMALS: normal respiratory effort, No retractions, No use of accessory muscles and clear to auscultation bilaterally AUSCULTATION: clear to auscultation bilaterally Cardio: COMMON NORMALS: no JVD, regular rate, regular rhythm, S1 normal heart sound present, S2 normal heart sound present, No gallops present (Cardio), No clicks present (Cardio), No murmurs present (Cardio) and No rub (Cardio) R ATE: regular rate RHYTHM: regular rhythm HEART SOUNDS: S1 normal heart sound present and S2 normal heart sound present GI: COMMON NORMALS: Normal to inspection, nondistended, normoactive bowel sounds present, Soft to palpation, non-tender, No hepatosplenomegaly present and no masses PALPATION: Yes Soft to palpation and Yes No hepatosplenomegaly present Neuro: COMMON NORMALS: patient oriented x3 SENSORIUM/ORIENTATION: Yes alert MENINGEAL SIGNS: Yes no meningeal signs Course 2 Vital Signs: Vital signs: Vital Signs Pulse Rate 77 03/10/24 21:03 Respiratory Rate 20 H 03/10/24 21:03 Blood Pressure 109/86 03/10/24 21:03 Pulse Oximetry 98 03/10/24 21:03 MDM - Neuro Symptoms/Deficit Medical Decision Making Dr. Espinal at bedside to evaluate patient. Dr. Espinal gave the patient an NIH of 0 and would like the patient mated to the hospitalist for further stroke workup. Prior to the CTA patient was given 50 mg of Benadryl and 40 mg of Solu-Medrol as premedication for her allergy to contrast. Patient did appear to have a syncopal episode and heart rate got up to about 110 beats a minute after the Benadryl was given to the patient. This resolved within a few minutes and patient had no complaints after that. Dr. Espinal was there for this episode and he thinks it may be more cardiac in nature the neuro. Discussed case with Dr. Forbes will place the patient on MedSurg with telemetry and we will get a pacemaker check. Differential Diagnosis Likely cerebrovascular accident and transient cerebral ischemia; Unlikely carpal tunnel syndrome, convulsions, delirium, subarachnoid hemorrhage, peripheral neuropathy or multiple sclerosis Medical Records I reviewed the patient's medical records. Lab Data I reviewed the patient's lab results. 03/10/24 19:35 03/10/24 19:35 Radiology Impressions Chest X-Ray 03/10/24 19:21 IMPRESSION: No acute findings. Head CT 03/10/24 19:21 IMPRESSION: No acute intracranial abnormality. ASSESSMENT: ASPECTS ([place] Stroke Program Early CT Score) is 10. Head/Neck CTA 03/10/24 19:44 IMPRESSION: No large vessel stenosis or occlusion. IMPRESSION: No occlusive disease. 50% narrowing distal right common carotid artery. REFERENCES: NASCET CRITERIA. The degree of stenosis in the cervical segment of the internal carotid artery is based on NASCET criteria. Normal is no stenosis. Mild is less than 50% stenosis. Moderate is 50-69% stenosis. Severe is 70% to 99% stenosis. Total occlusion is no detectable patent lumen. Laboratory Results WBC 9.51 10^3/uL (3.29-11.43) 03/10/24 19:35 RBC 4.85 10^6/uL (3.85-5.65) 03/10/24 19:35 Hgb 14.50 g/dL (11.27-16.99) 03/10/24: Hct 44.1 % (36-47) 03/10/24 19:35 MCV 90.9 fl (85-98) 03/10/24 19: MCH 29.9 pg (27-33) 03/10/24: MCHC 32.9 g/dL (30-55) 03/10/24 19:35 RDW 14.5 % (12.1-15.1) 03/10/24 19:35 Plt Count 298 10^3/cmm (157-399) 03/10/24 19:35 MPV 9.5 fL (7.4-10.4) 03/10/24 19:35 Neut % (Auto) 47.7 % 03/10/24 19:35 Lymph % (Auto) 40.9 % 03/10/24 19:35 [place] % (Auto) 8.5 % 03/10/24 19:35 Eos % (Auto) 1.8 % 03/10/24 19:35 Baso % (Auto) 0.9 % 03/10/24 19:35 Neut # (Auto) 4.53 10^3/uL (1.8-7.7) 03/10/24 19:35 Lymph # (Auto) 3.9 10^3/uL (0.8-4.8) 03/10/24 19:35 [place] # (Auto) 0.8 10^3/uL (0.2-0.9) 03/10/24 19:35 Eos # (Auto) 0.2 10^3/uL (0.0-0.8) 03/10/24 19:35 Baso # (Auto) 0.1 10^3/uL (0.0-0.1) 03/10/24 19:35 Nucleated RBC % (auto) 0 % 03/10/24 19:35 Nucleated RBCs # 0.0 /100WBC 03/10/24 19:35 PT 11.80 SECONDS (12.1-14.9) L 03/10/24 19:35 INR 0.85 (0.8-1.2) 03/10/24 19:35 APTT 27.4 SECONDS (23.9-36.7) 03/10/24 19:35 Sodium 140 mmol/L (136-145) 03/10/24 19:35 Potassium 4.3 mmol/L (3.5-5.1) 03/10/24 19:35 Chloride 101 mmol/L (98-107) 03/10/24 19:35 Carbon Dioxide 24 mmol/L (22-29) 03/10/24 19:35 Anion Gap 19.3 (5-19) H 03/10/24 19:35 BUN 17 mg/dL (8-23) 03/10/24 19:35 Creatinine 0.6 mg/dL (0.5-0.9) 03/10/24 19:35 GFR Calculation Not Reportable 03/10/24 19:35 Glucose 128 mg/dL (65-115) H 03/10/24 19:35 Calculated Osmolality 293 mOsm/kg (285-295) 03/10/24 19:35 Calcium 9.5 mg/dL (8.5-10.5) 03/10/24 19:35 Magnesium 2.2 mg/dL (1.7-2.3) 03/10/24 19:35 Total Bilirubin 0.4 mg/dL (0.15-1.2) 03/10/24 19:35 AST 25 U/L (0-32) 03/10/24 19:35 ALT 18 U/L (0-33) 03/10/24 19:35 Alkaline Phosphatase 131 U/L (35-105) H 03/10/24 19:35 Troponin T Baseline 8 ng/L (0-10) 03/10/24 19:35 C-Reactive Protein 3.0 mg/L (0.0-4.9) 03/10/24 19:35 Total Protein 7.4 g/dL (6.6-8.7) 03/10/24 19:35 Albumin 4.8 g/dL (3.5-5.2) 03/10/24 19:35 Globulin 2.6 g/dL (1.3-4.6) 03/10/24 19:35 TSH 10.72 uIU/mL (0.27-4.20) H 03/10/24 19:35 Urine Color Yellow (Yellow) 03/10/24 20:12 Urine Appearance Clear (CLEAR) 03/10/24 20:12 Urine pH 5 (5-7) 03/10/24 20:12 Ur Specific [place] 1.025 (1.005-1.030) 03/10/24 20:12 Urine Protein Neg (Negative) 03/10/24 20:12 Urine Glucose (UA) Norm (Normal) 03/10/24 20:12 Urine Ketones 1+ (Negative) H 03/10/24 20:12 Urine Blood Neg (Negative) 03/10/24 20:12 Urine Nitrate Negative (Negative) 03/10/24 20:12 Urine Bilirubin Neg (Negative) 03/10/24 20:12 Urine Urobilinogen Norm mg/dL (Negative) 03/10/24 20:12 Ur Leukocyte Esterase Negative (Negative) 03/10/24 20:12 Urine Opiates Screen Negative ng/mL (Negative) 03/10/24 20:12 Ur Barbiturates Screen Negative ng/mL (Negative) 03/10/24 20:12 Ur Phencyclidine Scrn Negative ng/mL (Negative) 03/10/24 20:12 Ur Amphetamines Screen Negative ng/mL (Negative) 03/10/24 20:12 U Benzodiazepines Scrn Negative ng/mL (Negative) 03/10/24 20:12 Urine Cocaine Screen Negative ng/mL (Negative) 03/10/24 20:12 U Marijuana (THC) Screen Negative ng/mL (Negative) 03/10/24 20:12 All radiology interpretation(s) finalized by discharge Discharge Plan Discharge Patient Disposition: Placed in Observation Clinical Impression: Brain TIA Syncope Qualifiers: Syncope type: unspecified Qualified Code(s): R55 - Syncope and collapse Coding Level of Care Code 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
--- NOTE | 2024-03-10 19:44 | CTR_ITS ---
PROCEDURE INFORMATION: Exam: CTA Head With Contrast, Arteriography Exam date and time: 03/10/2024 8:17 PM Age: 73 years old Clinical indication: Other: CVA symptoms TECHNIQUE: Imaging protocol: Computed tomographic angiography of the head with contrast. Exam focused on the arteries. 3D rendering (Not supervised by radiologist): MIP and/or 3D reconstructed images were created by the technologist. Radiation optimization: All CT scans at this facility use at least one of these dose optimization techniques: automated exposure control; mA and/or kV adjustment per patient size (includes targeted exams where dose is matched to clinical indication); or iterative reconstruction. Contrast material: OMNI 350; Contrast volume: 100 ml; Contrast route: INTRAVENOUS (IV); COMPARISON: CT head thrombolytic [id number] 03/10/2024 7:24 PM RADIATION DOSE METRICS: Total DLP (mGy-cm): 404.2 FINDINGS: ANTERIOR CIRCULATION: Right internal carotid artery: Intracranial segment is patent with no significant stenosis. No aneurysm. Right middle cerebral artery: No occlusion or significant stenosis. No aneurysm. Right anterior cerebral artery: No occlusion or significant stenosis. No aneurysm. Left internal carotid artery: Intracranial segment is patent with no significant stenosis. No aneurysm. Left middle cerebral artery: No occlusion or significant stenosis. No aneurysm. Left anterior cerebral artery: No occlusion or significant stenosis. No aneurysm. POSTERIOR CIRCULATION: Right vertebral artery: No occlusion or significant stenosis. No aneurysm. Left vertebral artery: No occlusion or significant stenosis. No aneurysm. Basilar artery: No occlusion or significant stenosis. No aneurysm. Right posterior cerebral artery: No occlusion or significant stenosis. No aneurysm. Left posterior cerebral artery: No occlusion or significant stenosis. No aneurysm. Brain: No definite mass, mass effect, or midline shift. Cerebral ventricles: No ventriculomegaly. Bones/joints: Unremarkable. No acute fracture. Soft tissues: Unremarkable. Other findings: Well-developed posterior communicating arteries are noted bilaterally. PROCEDURE INFORMATION: Exam: CTA Neck With Contrast Exam date and time: 03/10/2024 8:17 PM Age: 73 years old Clinical indication: Other: CVA symptoms TECHNIQUE: Imaging protocol: Computed tomographic angiography of the neck with contrast. Exam focused on the cervical segments of the vasculature. 3D rendering (Not supervised by radiologist): MIP and/or 3D reconstructed images were created by the technologist. Radiation optimization: All CT scans at this facility use at least one of these dose optimization techniques: automated exposure control; mA and/or kV adjustment per patient size (includes targeted exams where dose is matched to clinical indication); or iterative reconstruction. Contrast material: OMNI 350; Contrast volume: 100 ml; Contrast route: INTRAVENOUS (IV); COMPARISON: CT cervical spin wo con* [id number] 01/14/2021 6:54 PM RADIATION DOSE METRICS: Total DLP (mGy-cm): 404.2 FINDINGS: Tubes, catheters and devices: Permanent pacemaker/defibrillator device is partially imaged. Right common carotid artery: Calcified plaquing at distal right common carotid artery results in 50% narrowing. Right internal carotid artery: Calcified plaquing at right internal carotid origin results in 40% narrowing. Right external carotid artery: No occlusion or stenosis of the origin. Left common carotid artery: No stenosis. No dissection or occlusion. Left internal carotid artery: No stenosis of the extracranial segment. No dissection or occlusion. Mid to upper portions are tortuous. Left external carotid artery: No occlusion or stenosis of the origin. Right vertebral artery: No stenosis. No dissection or occlusion. Left vertebral artery: No stenosis. No dissection or occlusion. Soft tissues: Normal. No significant soft tissue swelling. Bones/joints: No acute fracture. Pleural spaces: Nodular finding along oblique fissure of right lung is unchanged from CTA chest from 01/17/2021. CT/CT angio headneck* [id number] IMPRESSION: No large vessel stenosis or occlusion. IMPRESSION: No occlusive disease. 50% narrowing distal right common carotid artery. REFERENCES: NASCET CRITERIA. The degree of stenosis in the cervical segment of the internal carotid artery is based on NASCET criteria. Normal is no stenosis. Mild is less than 50% stenosis. Moderate is 50-69% stenosis. Severe is 70% to 99% stenosis. Total occlusion is no detectable patent lumen.
[2024-03-10] MEDS: methylPREDNISolone sod succ 40 mg/mL INJ IVP (19:50)
[2024-03-10] MEDS: diphenhydrAMINE 50 mg/mL SDV 1mL IVP (19:53)
[2024-03-10] MEDS: sodium chloride 0.9% 1,000 ML 999 ML IV (20:00)
[2024-03-10] MEDS: aspirin 325 mg Tablet PO (20:03)
--- NOTE | 2024-03-10 20:07 | PM.CONSULT ---
Providers/Reason For Consult Consulting Physician/Specialty*: Javi Espinal MD neurology and epilepsy Reason for Consult*: Code stroke emergency department room #11/acute care Primary Care Provider: Reddy Szymanski MD History of Present Illness History of Present Illness Jacquie Elliott is a 73 year old female 73-year-old female with history of sick sinus syndrome and pacemaker placement and history of cardiomyopathy and moderate coronary artery disease. The patient was at home this evening with her eating dinner and reported acute onset of slurred speech with word finding difficulty and visual difficulty at approximately 7 PM on 03/10/2024. Code stroke was initiated at 7:19 PM on 03/10/2024. Noncontrast head CT was obtained and reported to be negative. NIH score = 0. CBC and comprehensive metabolic panel results pending at the time of this dictation. CT angiogram of the head and neck ordered but yet to be performed. The patient was being premedicated with Benadryl during my neurological assessment to prepare patient for CT angiogram of the head and neck since patient reported experiencing hives when she was given iodine intravenous contrast medium. Following my neurological assessment the patient stated that she was feeling as though she might lose consciousness. She reported that her chest felt heavy and then patient appeared to lose consciousness. Heart rate was increased on the cardiac hotel operations manager with increased blood pressure. The patient continued to bradycardia spontaneously and had a spontaneous pulse. After a few seconds the patient regained consciousness and her heart rate improved as well as as well as her blood pressure. Patient's speech was clear and patient moving all extremities brief syncopal episode. . The attending emergency room physician is aware of the patient's brief syncopal episode. I recommend the patient be admitted to telemetry monitoring/intensive care unit and consult cardiology as soon as possible. Drug allergies: Iodine contrast medium which resulted in hives Ciprofloxacin type reaction unknown Codeine type reaction unknown Doxycycline type reaction unknown Morphine which resulted in headache Nonsteroidal anti-inflammatory medication which resulted in palpitation Trimethoprim and sulfamethoxazole from Bactrim type reaction unknown Statin intolerance secondary to reports of muscle aches and memory issues Current medications: Aspirin 81 mg p.o. daily Atenolol 25 mg p.o. daily Vitamin D3 50,000 international units p.o. daily Azelaic acid 15% topical gel to be applied twice a day Past medical history: Sick sinus syndrome with pacemaker placement Cardiomyopathy Coronary artery disease Syncope Hypertension Habits: None Family history: Remarkable for a father with coronary artery disease and myocardial infarction. Review of Systems General: Reports: 10 or more systems reviewed and unremarkable except in HPI and below Medications/Allergies Home Medications Medication Instructions Recorded Confirmed Last Taken Type azelaic acid 15 % topical gel 1 applic topical BID 09/05/21 01/07/24 Unknown History (Finacea) aspirin 81 mg tablet,delayed 81 mg PO DAILY PRN 11/23/22 01/07/24 Unknown History release (Adult Aspirin Regimen) atenolol 25 mg tablet 25 mg PO DAILY@06 #90 tabs 12/16/23 01/07/24 Unknown Rx cholecalciferol (vitamin D3) 125 See Rx Instructions .Route 01/10/24 Unknown Rx mcg (5,000 unit) capsule .COMPLEX #30 caps Allergies Allergy/AdvReac Type Severity Reaction Status Date / Time Iodine and Iodide Containing Allergy Unknown ALGY-Hives Verified 01/07/24 14:43 Produc ciprofloxacin Allergy Unknown Verified 01/07/24 14:43 codeine Allergy Unknown Verified 01/07/24 14:43 doxycycline Allergy Unknown Verified 01/07/24 14:43 morphine Allergy ADR-Headach Verified 01/07/24 14:43 e NSAIDS (Non-Steroidal Allergy ADR/ALGY-Pa Verified 01/07/24 14:43 Anti-Inflamma lpitations sulfamethoxazole Allergy Unknown Verified 01/07/24 14:43 [From Bactrim] trimethoprim [From Bactrim] Allergy Unknown Verified 01/07/24 14:43 Current Medications Generic Name Dose Route Start Last Admin Trade Name Freq PRN Reason Stop Dose Admin Sodium Chloride 1,000 mls @ 999 mls/hr 03/10/24 19:58 03/10/24 20:00 Sodium Chloride 0.9% IV 03/10/24 20:58 999 mls/hr .Q1H1M ONE Administration PFSH Acute PFSH: Medical History CAD (coronary artery disease) Compression fracture Syncope Concussion Fall Compression fracture of L1 lumbar vertebra SSS (sick sinus syndrome) HTN (hypertension) Pacemaker Cardiomyopathy Surgical History History of hysterectomy Family History Father CAD (coronary artery disease) of myocardial infarction his 70s Other Diabetes Myocardial infarction Social History Smoking and tobacco/nicotine status: never used tobacco/nicotine Alcohol intake: never Substance/Drug Use: never Vitals/I&O/Wt Last Vital Signs Pulse 118 H 03/10/24 20:01 Resp 26 H 03/10/24 20:01 BP 158/87 03/10/24 20:01 Pulse Ox 100 03/10/24 20:01 Physical Exam Narrative: NIH score =0 Blood pressure 158/87 heart rate 118 respirations 26 O2 saturation 100% on oxygen mask The patient is alert and oriented x 3. Speech fluent. Head normocephalic. Neck supple. Cranial nerves II through XII intact. Pupils equal round and reactive to light and accommodation. Extraocular movements intact. Motor testing 5/5 bilaterally. There was no ataxia. Plantar responses flexor bilaterally. There was no clonus. Sensory examination was intact to touch. There was no extinction on double sensory stimulation. Visual yeh full via confrontation. There were no nystagmus. Throat clear. Lungs clear. Heart regular rhythm with increased rate Data 03/10/24 19:35 03/10/24 19:35 A&P Assessment and plan (1) TIA (transient ischemic attack): Impression: 1. Transient ischemic attack manifested as slurred speech, nonfluent aphasia and blurred vision at 7 PM on 03/10/2024 which resolved with NIH score = 0. Therefore patient was not a candidate for thrombolytics and no thrombolytics were administered 2. Sick sinus syndrome with pacemaker placement with episode of syncope on 03/10/2024 addressed by cardiology 3. History of cardiomyopathy addressed by cardiology 4. History of coronary artery disease addressed by cardiology 5. Hypertension 6. History of statin intolerance Plan: 1. Follow-up results of CT angiogram of the head and neck once study completed 2. Agree with cardiac evaluation and admission to either intensive care unit or cardiac unit with telemetry monitoring 3. Agree with cardiology consult to assist in the patient's care and to determine if repeat 2D echocardiogram is indicated 4. Follow-up pending metabolic lab 5. Neurochecks per NIH stroke protocol 6. Syncope/fall precautions Consult Attestations Medical Necessity Statement: The patient was evaluated by neurology for code stroke emergency department room #11 Coding Level of Care Code 30280 Diagnoses TIA (transient ischemic attack) G45.9
[2024-03-10 20:08] LABS: Basophils # 0.1 10^3/uL (0.0-0.1); Basophils % 0.9 %; Eosinophils # 0.2 10^3/uL (0.0-0.8); Eosinophils % 1.8 %; Hematocrit 44.1 % (36-47); Lymphocytes # 3.9 10^3/uL (0.8-4.8); Lymphocytes % 40.9 %; Mean Corpuscular HGB Conc 32.9 g/dL (30-55); Mean Corpuscular Hemoglobin 29.9 pg (27-33); Mean Corpuscular Volume 90.9 fl (85-98); Mean Platelet Volume 9.5 fL (7.4-10.4); Monocytes # 0.8 10^3/uL (0.2-0.9); Monocytes % 8.5 %; Neutrophils # 4.53 10^3/uL (1.8-7.7); Neutrophils % 47.7 %; Nucleated Red Blood Cells % 0 %; Platelet Count 298 10^3/cmm (157-399); Red Blood Count 4.85 10^6/uL (3.85-5.65); Red Cell Distribution Width 14.5 % (12.1-15.1); White Blood Count 9.51 10^3/uL (3.29-11.43)
[2024-03-10 20:19] LABS: INR 0.85 (0.8-1.2); Partial Thromboplastin Time 27.4 SECONDS (23.9-36.7)
[2024-03-10 20:19] LABS: Add Urine Microscopic? NO; Charge for UA Resulting for Rev
[2024-03-10] MEDS: iohexol 350 mg/mL 500 mL Btl (per mL) IV (20:19)
[2024-03-10 20:21] LABS: Bilirubin Urine Neg (Negative); Blood Urine Neg (Negative); Glucose Urine UA Norm (Normal); Ketones Urine 1+ (Negative); Leukocyte Esterase Urine Negative (Negative); Nitrate Urine Negative (Negative); Protein Urine Neg (Negative); Specific Gravity, Urine 1.025 (1.005-1.030); Urine Appearance Clear (CLEAR); Urine Color Yellow (Yellow); Urobilinogen Urine Norm (Negative); pH Urine 5 (5-7)
[2024-03-10 20:29] LABS: Troponin(5th) Baseline 8 ng/L (0-10)
[2024-03-10 20:30] LABS: Amphetamines Screen Urine Negative (Negative); Barbiturates Screen Urine Negative (Negative); Benzodiazepines Screen Urine Negative (Negative); Cocaine Screen Urine Negative (Negative); Opiate Screen Urine Negative (Negative); PCP Screen Urine Negative (Negative); THC Screen Urine Negative (Negative)
[2024-03-10 20:36] LABS: Alanine Aminotransferase 18 U/L (0-33); Albumin Level 4.8 g/dL (3.5-5.2); Alkaline Phosphatase 131 U/L (35-105); Anion Gap 19.3 (5-19); Aspartate Amino Transferase 25 U/L (0-32); Blood Urea Nitrogen 17 mg/dL (8-23); Calcium 9.5 mg/dL (8.5-10.5); Carbon Dioxide 24 mmol/L (22-29); Chloride 101 mmol/L (98-107); Globulin 2.6 g/dL (1.3-4.6); Glucose 128 mg/dL (65-115); Magnesium 2.2 mg/dL (1.7-2.3); Osmolality Calculated 293 mOsm/kg (285-295); Potassium 4.3 mmol/L (3.5-5.1); Sodium 140 mmol/L (136-145); Total Bilirubin 0.4 mg/dL (0.15-1.2); Total Protein 7.4 g/dL (6.6-8.7)
[2024-03-10 20:37] LABS: Thyroid Stimulating Hormone 10.72 uIU/mL (0.27-4.20)
--- NOTE | 2024-03-10 21:18 | ECG_ITS ---
[facility] Test Date: 2024-03-10 Pat Name: Jacquie Elliott Department: Room: Gender: Female Director Of Income Tax: : 1950 Requested By: Diego Christianson Order Number: [id number] Addie MD: Hortencia Murcia M.D. Measurements Intervals [place] Rate: 82 P: 62 KS: 176 QRS: 119 QRSD: 161 T: 48 QT: 463 QTc: 543 Interpretive Statements SINUS RHYTHM RIGHT BUNDLE BRANCH BLOCK [120+ ms QRS DURATION, UPRIGHT V1, 40+ ms S IN I/aVL/V4/V5/V6] LEFT POSTERIOR FASCICULAR BLOCK [QRS AXIS > 109, INFERIOR Q] Compared to ECG 03/31/2022 10:32:39 Atrial fibrillation no longer present Aberrant conduction of supraventricular beat(s) no longer present Ventricular premature complex(es) no longer present Electronically Signed On 03-11-2024 20:06:40 CDT by Hortencia Murcia M.D. [id number]
--- NOTE | 2024-03-10 22:10 | PC.NURSE ---
Per ED nurse, pacemaker interrogation was completed and [employer] media sales representative reported no issues.
[2024-03-10 22:33] LABS: Troponin 5 2HR Delta 96.6 ABS# (0-10)
[2024-03-10 22:34] LABS: Troponin 5 2HR 104.6 ng/L (0-10)
--- NOTE | 2024-03-10 22:51 | USCV_ITS ---
Jacquie Elliott Age: 73 Gender: F : 1950 Exam Date: 03/10/2024 23:05 Ordering Phys: Fran Sam MD Technologist: ZAHRA Exam Location: [facility] [place] Indication: garbled speech, visual disturbances, history of pacer 1980. order says NSTEMI BP: 141 / 88 HR: 82 Rhythm: Sinus Technical Quality: Adequate MEASUREMENTS (Male / Female) Normal Values 2D ECHO LV Diastolic Diameter PLAX 5.3 cm 4.2 - 5.9 / 3.9 - 5.3 cm IVS Diastolic Thickness 1.1 cm 0.6 - 1.0 / 0.6 - 0.9 cm IVS Systolic Thickness 1.8 cm LVPW Diastolic Thickness 1.0 cm 0.6 - 1.0 / 0.6 - 0.9 cm LVPW Systolic Thickness 1.7 cm LVOT Diameter 1.9 cm LV Ejection Fraction 2D Teich 70.7 % LV Ejection Fraction MOD 2C 63.1 % LV Ejection Fraction 2C AL 62.6 % LA Diameter 3.6 cm Aorta at Sinotubular Diameter 2.4 cm IVC Diameter 1.9 cm M-MODE LA Ao Ratio MM 1.7 AV Cusp Separation MM 1.2 cm DOPPLER AV Peak Velocity 117.0 cm/s LVOT Peak Velocity 70.0 cm/s AV Area Cont Eq vti 2.0 cm squared AV Area Cont Eq pk 1.6 cm squared MV Peak Velocity 112.0 cm/s MV Area PHT 8.3 cm squared Mitral E to A Ratio 1.2 TV Peak E Velocity 85.0 cm/s PV Peak Velocity 64.0 cm/s FINDINGS Left Ventricle Diffuse hypokinesia of the left ventricle with ejection fraction of around 40 to 45% Right Ventricle The right ventricle is normal in size and function. Right Atrium Mildly increased right atrial size. Left Atrium Mildly increased left atrial size. Mitral Valve Thickened mitral valve. Trace mitral valve regurgitation. Mild- moderate mitral valve regurgitation. Aortic Valve Thickened aortic valve. Tricuspid Valve Trace tricuspid valve regurgitation. Pulmonic Valve Pulmonic valve not well visualized. Pericardium Normal pericardium without effusion. Aorta Normal ascending aorta dimension. IVC Normal inferior vena cava. CONCLUSIONS Diffuse hypokinesia of the left ventricle with an ejection fraction of around 40 to 45%. Thickened mitral valve. Mild-moderate mitral valve regurgitation. Trace of tricuspid regurgitation mild biatrial enlargementT. Thickened aortic valve There is no pericardial effusion. Dr Hortencia Murcia MD FACC (Electronically Signed) Final Date: 11 Mar 2024 17:09 S
--- NOTE | 2024-03-10 22:56 | P.HP_ITS ---
Providers/Chief Complaint 2 Admitting Physician: Fran Sam MD Primary Care Provider: Reddy Szymanski MD Chief Complaint: Possible Stroke History of Present Illness Jacquie Elliott is a 73 year old female with a past medical history of PVCs, sick sinus syndrome, pacemaker in place, hypertension, who presents to [facility] due to slurring of her words, word finding difficulty, blurry vision. Currently patient is alert oriented x 4, following all commands, NIH stroke scale is 0, she tells me that this evening at about 7 PM, she was sitting down to have dinner, when she started noticing that she had word finding difficulty, trouble coming up with the right words, with slurring of her words, and visual deficits, code stroke was initiated, CT head was within normal limits, upon neurology evaluation, patient was back to her baseline, NIH stroke scale 0, was not a tPA candidate at that point, CT angiogram of head and neck ordered showed that she had 50% narrowing of the distal right common carotid artery, of note, when patient received her CTA, she had a contrast allergy so she was given Solu-Medrol and Benadryl, she had an episode in which after receiving the Benadryl at some point, she started complaining of chest heaviness, and she lost consciousness, heart heart rates was increased on the telemetry monitoring, rhythm is unknown, she had a pulse, she was spontaneously breathing, after a few moments, she regained consciousness, she denies currently any chest pain, any lightheadedness, denies prior history of syncopal episodes, does have a history of sick sinus syndrome, pacemaker in place. During my assessment, deep into conversation she does have word finding difficulty at times such as when asked her what her reaction to statin was, she became very flustered and upset with her as she could not remember what exactly happened when she took a statin but eventually remembered that she had an adverse reaction that was myopathy. I also did extensive neurologic testing, her prfkmk-am-hwhy on the left side was abnormal, but when I reassessed it a few minutes later, it was within normal limits Review of Systems 2 Const: Denies: fever(s), chills, fatigue or malaise Card: Denies: chest pain Resp: Denies: dyspnea GI: Denies: abdominal pain : Denies: flank pain Musc: Denies: neck pain or back pain Neuro: Reports: confusion, Slurred speech present and difficulty communicating thoughts; Denies: headache(s), numbness in extremities, weakness in extremities, sensory changes, difficulty walking, dizziness, vertigo, behavioral changes, seizure- like activity or involuntary movements Psych: Denies: anxiety or depression Medications/Allergies Home Medications Medication Instructions Recorded Confirmed Last Taken Type azelaic acid 15 % topical gel 1 applic topical BID 09/05/21 03/10/24 Unknown History (Finacea) cholecalciferol (vitamin D3) 125 See Rx Instructions .Route 01/10/24 03/10/24 Unknown Rx mcg (5,000 unit) capsule .COMPLEX #30 caps aspirin 325 mg tablet See Rx Instructions .Route .COMPLEX 03/10/24 03/10/24 Unknown History atenolol 25 mg tablet 25 mg PO QAM 03/10/24 03/10/24 03/10/24 History Allergies Allergy/AdvReac Type Severity Reaction Status Date / Time Iodine and Iodide Containing Allergy Unknown ALGY-Hives Verified 03/10/24 22:26 Produc ciprofloxacin Allergy Unknown Verified 03/10/24 22:26 codeine Allergy Unknown Verified 03/10/24 22:26 doxycycline Allergy Unknown Verified 03/10/24 22:26 morphine Allergy ADR-Halluci Verified 03/10/24 22:26 nating NSAIDS (Non-Steroidal Allergy ADR/ALGY-Pa Verified 03/10/24 22:26 Anti-Inflamma lpitations Choeyxw-MBU-VgB Reductase Allergy ADR-Muscle Verified 03/10/24 22:36 Inhibitor Pain sulfamethoxazole Allergy Unknown Verified 03/10/24 22:26 [From Bactrim] trimethoprim [From Bactrim] Allergy Unknown Verified 03/10/24 22:26 PFSH Acute 2 PFSH: Medical History CAD (coronary artery disease) Compression fracture Syncope Concussion Fall Compression fracture of L1 lumbar vertebra SSS (sick sinus syndrome) HTN (hypertension) Pacemaker Cardiomyopathy Surgical History History of hysterectomy Family History Father CAD (coronary artery disease) of myocardial infarction his 70s Other Diabetes Myocardial infarction Social History Smoking and tobacco/nicotine status: never used tobacco/nicotine Alcohol intake: never Substance/Drug Use: never Vitals/I&O/Wt Last Vital Signs Temp 98.6 F 03/10/24 22:25 Pulse 86 03/10/24 22:25 Resp 18 03/10/24 22:25 BP 141/88 03/10/24 22:25 Pulse Ox 93 03/10/24 22:25 O2 Del Method Room Air 03/10/24 22:25 03/10/24 03/10/24 03/10/24 06:59 14:59 22:59 Intake Total 1000 / 1000 Balance 1000 / 1000 Weight last 48 hrs Weight 67.313 kg Physical Exam 2 Const: COMMON NORMALS: no acute distress and patient oriented x3 HENMT: COMMON NORMALS: normocephalic HEAD & SCALP: normocephalic Eye: COMMON NORMALS: Equal, round and reactive pupils present and EOMs intact bilaterally Neck/C-Spine: COMMON NORMALS: no JVD Resp: COMMON NORMALS: normal respiratory effort, No retractions, No use of accessory muscles and clear to auscultation bilaterally AUSCULTATION: clear to auscultation bilaterally Cardio: COMMON NORMALS: no JVD, regular rate, regular rhythm, S1 normal heart sound present and S2 normal heart sound present RATE: regular rate RHYTHM: regular rhythm HEART SOUNDS: S1 normal heart sound present and S2 normal heart sound present GI: COMMON NORMALS: Normal to inspection, nondistended, normoactive bowel sounds present, Soft to palpation and non-tender Extremity: COMMON NORMALS: no calf tenderness and no pedal edema Neuro: COMMON NORMALS: patient oriented x3, CN's II-XII intact bilaterally, moves all extremities and no focal motor deficits OTHER: Intermittent word finding difficulties, uiqexm-ox-wgcn abnormal on the left intermittently at times Psych: COMMON NORMALS: mental status grossly normal Data 03/10/24 19:35 03/10/24 19:35 A&P Assessment and plan (1) HTN (hypertension): Qualifiers: Hypertension type: essential hypertension Qualified Code(s): I10 - Essential (primary) hypertension (2) CAD (coronary artery disease): Qualifiers: Coronary Disease-Associated Artery/Lesion type: [place] artery [place] vs. transplanted heart: [place] heart Associated angina: without angina Qualified Code(s): I25.10 - Atherosclerotic heart disease of [place] coronary artery without angina pectoris (3) PVC (premature ventricular contraction): (4) Sick sinus syndrome: (5) TIA (transient ischemic attack): (6) NSTEMI (non-ST elevated myocardial infarction): (7) Syncope: Qualifiers: Syncope type: unspecified Qualified Code(s): R55 - Syncope and collapse Plan Transient ischemic attack ? N/A stroke scale on admission was 0, not a tPA candidate, CT head within normal limits, CTA head and neck no significant large vessel occlusion except 50% distal RCA narrowing ? She did have 1 instance of word finding difficulty during my assessment which was intermittent, resolved, she did have positive eivyou-yv-ijsy on the left at 1 point, but it resolved spontaneously ? Plan ? Neurochecks ? NIH stroke scale ? Continue aspirin ? Has a statin intolerance ? Will consider Plavix ? Cannot do an MRI given her pacemaker ? Monitor neurologic status closely ? IV fluids Syncopal episode ? Possibly related to Benadryl/contrast medium ? Continue to monitor closely ? Telemetry monitoring ? Serial troponins, telemetry monitoring ? Cardiac echo none send?pacemaker interrogation NSTEMI ? Currently denies any chest pain ? Potential related to syncopal episode ? Serial troponins, telemetry monitoring ? Continue aspirin, continue home atenolol Lovenox for DVT prophylaxis ? CODE STATUS, patient is adamant that she is a DNR/DNI she does not want to have aggressive interventions, she tells me that if she does have significant deficits from a stroke or medical condition she does not want to be a burden on her family and at that point she just would want to be left comfortable Attestations 2 Medical Necessity Statement*: Patient requires hospitalization, outpatient with observation, for TIA, NSTEMI Diagnoses Essential hypertension I10 Hypertension type: essential hypertension Coronary artery disease involving [place] coronary artery of [place] heart without angina pectoris I25.10 Coronary Disease-Associated Artery/Lesion type: [place] artery [place] vs. transplanted heart: [place] heart Associated angina: without angina PVC (premature ventricular contraction) I49.3 Sick sinus syndrome I49.5 TIA (transient ischemic attack) G45.9 NSTEMI (non-ST elevated myocardial infarction) I21.4 Syncope R55 Syncope type: unspecified
[2024-03-10 23:22] LABS: Lactic Sepsis W/Reflex 1.5 mmol/L (0.5-2.2)
[2024-03-10 23:32] LABS: Free T4 Free Thyroxine 1.08 ng/dL (0.82-1.77); Procalcitonin 0.03 ng/mL (0-0.5); T3 Free 2.8 PG/ML (2.0-4.4)
[2024-03-10 23:43] LABS: LDL HDL Ratio 3.16 RATIO (0.00-3.22); Triglycerides 99 mg/dL (0-150)
[2024-03-10] MEDS: sodium chloride 0.9% 1,000 ML 75 ML IV (23:58)
[2024-03-11] VITALS (8 sets, daily range): BP systolic 109–136; BP diastolic 69–85; PULSE 60–86; RESP 14–18; TEMP 36.3–37.2; O2SAT 94–97
[2024-03-11 00:28] LABS: Chol HDL Ratio 4.51 mg/dL (0.0-4.40); Cholesterol 257 mg/dL (0-200); Creatine Phosphokinase 210 U/L (26-192); HDL Cholesterol 57 mg/dL (60-100); LDL Cholesterol Calculated 180 mg/dL (50-129)
--- NOTE | 2024-03-11 02:05 | ECG_ITS ---
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 Measurements Intervals [place] Rate: 76 P: 71 [place]: 189 QRS: 118 QRSD: 156 T: 62 QT: 470 QTc: 529 Interpretive Statements SINUS RHYTHM WITH OCCASIONAL VENTRICULAR PREMATURE COMPLEXES RIGHT BUNDLE BRANCH BLOCK [120+ ms QRS DURATION, UPRIGHT V1, 40+ ms S IN I/aVL/V4/V5/V6] LEFT POSTERIOR FASCICULAR BLOCK [QRS AXIS > 109, INFERIOR Q] Compared to ECG 03/10/2024 21:18:47 Ventricular premature complex(es) now present Electronically Signed On 03-11-2024 20:07:58 CDT by Hortencia Murcia M.D. [id number]
[2024-03-11 02:34] LABS: Basophils % 0.2 %; Hematocrit 40.3 % (36-47); Lymphocytes # 0.8 10^3/uL (0.8-4.8); Mean Corpuscular HGB Conc 32.3 g/dL (30-55); Mean Corpuscular Hemoglobin 29.5 pg (27-33); Mean Corpuscular Volume 91.4 fl (85-98); Mean Platelet Volume 9.4 fL (7.4-10.4); Monocytes # 0.1 10^3/uL (0.2-0.9); Monocytes % 0.6 %; Neutrophils # 7.91 10^3/uL (1.8-7.7); Neutrophils % 89.9 %; Nucleated Red Blood Cells % 0 %; Platelet Count 240 10^3/cmm (157-399); Red Blood Count 4.41 10^6/uL (3.85-5.65); Red Cell Distribution Width 14.5 % (12.1-15.1)
[2024-03-11 02:57] LABS: Anion Gap 13.3 (5-19); Blood Urea Nitrogen 15 mg/dL (8-23); Calcium 9.1 mg/dL (8.5-10.5); Carbon Dioxide 24 mmol/L (22-29); Chloride 106 mmol/L (98-107); Glucose 157 mg/dL (65-115); Magnesium 2.1 mg/dL (1.7-2.3); Osmolality Calculated 292 mOsm/kg (285-295); Phosphorus 2.8 mg/dL (2.5-4.5); Potassium 4.3 mmol/L (3.5-5.1); Sodium 139 mmol/L (136-145)
[2024-03-11 03:08] LABS: Troponin 5 6HR 134.2 ng/L (0-10); Troponin 5 6HR Delta 126.2 ng/L (0-12)
[2024-03-11] MEDS: heparin drip 25,000 UNIT/500 ML PREMIX 18.8500000000000014 UNIT IV (04:24)
[2024-03-11] MEDS: atenolol 50 mg Tablet 25 MG PO (04:24)
[2024-03-11] MEDS: heparin 5,000 unit/mL INJ 1 mL IV (04:25)
--- NOTE | 2024-03-11 04:55 | ECG_ITS ---
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 Measurements Intervals [place] Rate: 84 P: 74 [place]: 194 QRS: 117 QRSD: 166 T: 24 QT: 410 QTc: 486 Interpretive Statements SINUS RHYTHM WITH FREQUENT VENTRICULAR PREMATURE COMPLEXES IN A BIGEMINAL PATTERN RIGHT BUNDLE BRANCH BLOCK [120+ ms QRS DURATION, UPRIGHT V1, 40+ ms S IN I/aVL/V4/V5/V6] LEFT POSTERIOR FASCICULAR BLOCK [QRS AXIS > 109, INFERIOR Q] Compared to ECG 03/11/2024 02:05:00 No significant changes Electronically Signed On 03-11-2024 19:59:17 CDT by Hortencia Murcia M.D. [id number]
--- NOTE | 2024-03-11 05:29 | PC.NURSE ---
At approximately 04:24, I began the patient's ordered heparin drip and administered the patient's ordered Atenolol. During this time, the HYDROELECTRIC PLANT ELECTRICIAN was also in room obtaining the patient's vital signs. Blood pressure was 136/82 and heart rate was 86. Patient's telemetry rhythm was sinus rhythm with occasional PVCs. Approximately 5-10 minutes later, the patient's call light began beeping. The patient stated that she felt like her heart was racing and she felt hot. Patient's heart rate was 120 in sinus tachycardia on telemetry. Blood pressure 160/98. Shortly after that, patient's cardiac rhythm changed to bigeminy. EKG obtained. Dr. Sam notified. Ordered to continue to monitor. Patient's telemetry rhythm is now paced/sinus rhythm with occasional PVCs. Patient states she feels so much better. Patient states that she takes Atenolol for her PVCs , but that she hasn't felt bad like that in years.
[2024-03-11 06:10] LABS: Troponin(5th) Baseline 113 ng/L (0-10)
--- NOTE | 2024-03-11 06:45 | ECG_ITS ---
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 Measurements Intervals [place] Rate: 69 P: 56 [place]: 176 QRS: 115 QRSD: 168 T: 77 QT: 518 QTc: 558 Interpretive Statements SINUS RHYTHM WITH OCCASIONAL VENTRICULAR PREMATURE COMPLEXES RIGHT AXIS DEVIATION [QRS AXIS > 100] RIGHT BUNDLE BRANCH BLOCK [120+ ms QRS DURATION, UPRIGHT V1, 40+ ms S IN I/aVL/V4/V5/V6] Compared to ECG 03/11/2024 04:55:23 Right-axis deviation now present Left posterior fascicular block no longer present Electronically Signed On 03-11-2024 20:14:47 CDT by Hortencia Murcia M.D. [id number]
[2024-03-11 07:40] LABS: Troponin 5 2HR 109.6 ng/L (0-10); Troponin 5 2HR Delta -3.4 ABS# (0-10)
[2024-03-11] MEDS: aspirin 81 mg EC Tablet PO (08:08)
--- NOTE | 2024-03-11 08:51 | PC.CHAP ---
Pastoral Care Encounter/Spiritual Assessment Type of Contact [] Declined head lineman visit [] Patient/Family/Request visit [] Outpatient visit [] Follow-up visit [] Physician referral [] Code/Alert [x] Routine visit [] Staff referral [] Actively dying [] Patient sleeping [] Family support [] [] Out of room [] Palliative care [] [] Receiving care in room [] Pre-surgical visit [] Trauma [] Long length of stay [] ICU visit [] Other: Relational/Emotional Strength [x] Patient feels connected with others/family/visitors/staff [] Distress [] Loneliness/isolation [] Abandonment Spirituality of Patient [x] Person of Becky [] Attends Tenriism of their Becky [x] Believes in Prayer [] Reads Bible or Confucianism materials [] There are Spiritual issues to be addressed Social Services Specialist Interventions [x] Prayer [x] Active listening [] Non-anxious presence [x] Spiritual/emotional support [] Crisis/trauma care [] Spiritual counseling [] Bereavement support [] Provided bereavement packet [] Provided Bible/devotional materials [] Provided toy/stuffed animal, coloring book to patient or family member [] Provided Communion [] Anointing/[place] [] Salvation [x] Completed spiritual assessment [] Other: Impact on Illness or Injury [] Angry [] Fearful [] Anxious [] Often cries [] Exhaustion [] Unable to work [] Unable to attend synagogue [] Unable to walk/stand [] Unable to read [] Unable to drive [] Unable to eat/drink [] Unable to sleep [] Unable to be with family [] Patient intubated [] Other: Summary Time spent with patient 5 min
--- NOTE | 2024-03-11 10:45 | ECG_ITS ---
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 Measurements Intervals [place] Rate: 66 P: 74 [place]: 196 QRS: 111 QRSD: 165 T: 73 QT: 523 QTc: 550 Interpretive Statements SINUS RHYTHM RIGHT BUNDLE BRANCH BLOCK [120+ ms QRS DURATION, UPRIGHT V1, 40+ ms S IN I/aVL/V4/V5/V6] LEFT POSTERIOR FASCICULAR BLOCK [QRS AXIS > 109, INFERIOR Q] Compared to ECG 03/11/2024 08:01:44 Left posterior fascicular block now present Ventricular premature complex(es) no longer present Right-axis deviation no longer present Electronically Signed On 03-11-2024 20:14:57 CDT by Hortencia Murcia M.D. [id number]
[2024-03-11 11:09] LABS: Partial Thromboplastin Time 126.3 SECONDS (23.9-36.7)
[2024-03-11] MEDS: sodium chloride 0.9% 1,000 ML 75 ML IV (11:59)
[2024-03-11 12:39] LABS: Troponin 5 6HR 95.86 ng/L (0-10); Troponin 5 6HR Delta -17.14 ng/L (0-12)
--- NOTE | 2024-03-11 16:19 | P.CONIM_ITS ---
Providers/Reason For Consult 2 Consulting Physician/Specialty*: Chinedu Rodriguez MD/ Cardiology Reason for Consult*: Chest pain Requesting Physician: Dr Sue Attending Physician: Shashi Veronica Primary Care Provider: Reddy Szymanski MD History of Present Illness History of Present Illness Jacquie Elliott is a 73 year old female with past medical history of nonobstructive CAD who presented to hospital with possible TIA. She has history of sick sinus syndrome and has pacemaker in place. One of the EKG is showing atrial fibrillation. She also has frequent PVCs. During hospitalization she had an episode of chest discomfort. She says occasionally gets chest pain. Her initial troponin was elevated at 113 however it has trended down since. EKG not showing acute ST changes. Review of Systems 2 Const: Denies: fever(s), chills, fatigue or malaise Card: Denies: chest pain Resp: Denies: dyspnea GI: Denies: abdominal pain : Denies: flank pain Musc: Denies: neck pain or back pain Neuro: Reports: confusion, Slurred speech present and difficulty communicating thoughts; Denies: headache(s), numbness in extremities, weakness in extremities, sensory changes, difficulty walking, dizziness, vertigo, behavioral changes, seizure- like activity or involuntary movements Psych: Denies: anxiety or depression Medications/Allergies Home Medications Medication Instructions Recorded Confirmed Last Taken Type azelaic acid 15 % topical gel 1 applic topical BID 09/05/21 03/10/24 Unknown History (Finacea) cholecalciferol (vitamin D3) 125 See Rx Instructions .Route 01/10/24 03/10/24 Unknown Rx mcg (5,000 unit) capsule .COMPLEX #30 caps aspirin 325 mg tablet See Rx Instructions .Route .COMPLEX 03/10/24 03/10/24 Unknown History atenolol 25 mg tablet 25 mg PO QAM 03/10/24 03/10/24 03/10/24 History Allergies Allergy/AdvReac Type Severity Reaction Status Date / Time Iodine and Iodide Containing Allergy Unknown ALGY-Hives Verified 03/10/24 22:26 Produc ciprofloxacin Allergy Unknown Verified 03/10/24 22:26 codeine Allergy Unknown Verified 03/10/24 22:26 doxycycline Allergy Unknown Verified 03/10/24 22:26 morphine Allergy ADR-Halluci Verified 03/10/24 22:26 nating NSAIDS (Non-Steroidal Allergy ADR/ALGY-Pa Verified 03/10/24 22:26 Anti-Inflamma lpitations Ocmmnnf-XED-SxI Reductase Allergy ADR-Muscle Verified 03/10/24 22:36 Inhibitor Pain sulfamethoxazole Allergy Unknown Verified 03/10/24 22:26 [From Bactrim] trimethoprim [From Bactrim] Allergy Unknown Verified 03/10/24 22:26 Current Medications Generic Name Dose Route Start Last Admin Trade Name Freq PRN Reason Stop Dose Admin Aspirin 81 mg 03/11/24 09:00 03/11/24 08:08 Aspirin 81 Mg Ec Tablet PO 81 mg DAILY MIKE Administration Atenolol 25 mg 03/11/24 06:00 03/11/24 04:24 Atenolol 50 Mg Tablet PO 25 mg QAM MIKE Administration Heparin Sodium (Porcine) 0 unit 03/11/24 03:11 03/11/24 04:25 Heparin 5,000 Unit/Ml Inj 1 Ml IV 3,400 unit PRN PRN Administration Heparin weight-base protocol Protocol Sodium Chloride 1,000 mls @ 75 mls/hr 03/10/24 23:00 03/11/24 11:59 Sodium Chloride 0.9% IV 75 mls/hr .[id number] MIKE Administration Heparin Sodium/Sodium Chloride 25,000 unit in 500 mls @ 0 mls/hr 03/11/24 03:15 03/11/24 11:26 Heparin Drip IV 11.14 unit/kg/hr .Q0M MIKE 15 mls/hr Titration Protocol Per Protocol Pantoprazole Sodium 40 mg 03/10/24 23:00 03/10/24 23:53 Pantoprazole 40 Mg Sdv IVP Not Given Q24H MIKE PFSH Acute 2 PFSH: Medical History CAD (coronary artery disease) Compression fracture Syncope Concussion Fall Compression fracture of L1 lumbar vertebra SSS (sick sinus syndrome) HTN (hypertension) Pacemaker Cardiomyopathy Surgical History History of hysterectomy Family History Father CAD (coronary artery disease) of myocardial infarction his 70s Other Diabetes Myocardial infarction Social History Smoking and tobacco/nicotine status: never used tobacco/nicotine Alcohol intake: never Substance/Drug Use: never Vitals/I&O/Wt Last Vital Signs Temp 98.3 F 03/11/24 12:00 Pulse 72 03/11/24 12:00 Resp 15 03/11/24 12:00 BP 133/71 03/11/24 08:00 Pulse Ox 96 03/11/24 12:00 O2 Del Method Room Air 03/11/24 12:00 03/11/24 03/11/24 03/11/24 06:59 14:59 22:59 Intake Total 1033.828 / 1033.828 Balance 1033.828 / 1033.828 Weight last 48 hrs Weight 148 lb 6.4 oz Weight 148 lb 6.4 oz Physical Exam 2 Narrative: GENERAL: Patient is alert, awake and oriented x3. [] NECK: No jugular vein distension. [] HEENT: No cyanosis. No icterus. No pallor. [] HEART: Regular S1 and S2. No murmur, rub or gallop. [] LUNGS: Clear to auscultate bilaterally. [] CENTRAL NERVOUS SYSTEM: Grossly nonfocal. [] EXTREMITIES: Lower extremities with 1+ edema bilaterally. Data 03/12/24 05:47 03/12/24 05:47 A&P Assessment and plan (1) HTN (hypertension): Qualifiers: Hypertension type: essential hypertension Qualified Code(s): I10 - Essential (primary) hypertension (2) CAD (coronary artery disease): Qualifiers: Coronary Disease-Associated Artery/Lesion type: [place] artery [place] vs. transplanted heart: [place] heart Associated angina: without angina Qualified Code(s): I25.10 - Atherosclerotic heart disease of [place] coronary artery without angina pectoris (3) Cardiomyopathy: Qualifiers: Cardiomyopathy type: unspecified Qualified Code(s): I42.9 - Cardiomyopathy, unspecified (4) PVC (premature ventricular contraction): (5) Sick sinus syndrome: (6) Pacemaker: (7) Troponin level elevated: (8) Atrial fibrillation: Plan Patient has presented with TIA. During hospitalization has chest discomfort episode. It is atypical. However troponins were elevated. Did not trend up significantly. Will recommend proceeding with Lexiscan. She will need anticoagulation is one of the EKGs is consistent with atrial fibrillation. She had a TIA. Her [id number] score is 4-5. Continue heparin and at time of discharge can go home on Xarelto or eliquis NPO past midnight Thank youb for involving us with care of this patient. we will continue to follow. Please call with questions. Consult Attestations 2 Medical Necessity Statement: Care expected to cross 2 midnights. Coding Level of Care Code Acute Code for Chg Fwd Diagnoses Essential hypertension I10 Hypertension type: essential hypertension Coronary artery disease involving [place] coronary artery of [place] heart without angina pectoris I25.10 Coronary Disease-Associated Artery/Lesion type: [place] artery [place] vs. transplanted heart: [place] heart Associated angina: without angina Cardiomyopathy, unspecified type I42.9 Cardiomyopathy type: unspecified PVC (premature ventricular contraction) I49.3 Sick sinus syndrome I49.5 Pacemaker Z95.0 Troponin level elevated R79.89 Atrial fibrillation I48.91
--- NOTE | 2024-03-11 17:35 | P.PN_ITS ---
Subjective 2 Subjective: She states it took some time for her Word finding difficulty to resolve overnight. Visual deficits have resolved, have not returned. She is not having any chest pain. She previously had a severe reaction to statin and declines any statin related medication. She is reluctant regarding PCSK9 inhibitors but is willing to discuss with her primary provider. 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 Vitals/I&O/Wt Last Vital Signs Temp 98.3 F 03/11/24 16:25 Pulse 72 03/11/24 16:25 Resp 15 03/11/24 16:25 BP 115/69 03/11/24 16:00 Pulse Ox 96 03/11/24 16:00 O2 Del Method Room Air 03/11/24 16:00 03/11/24 03/11/24 03/11/24 06:59 14:59 22:59 Intake Total 1033.828 / 1033.828 120 / 1153.828 Balance 1033.828 / 1033.828 120 / 1153.828 Weight last 48 hrs Weight 67.313 kg Weight 67.313 kg Physical Exam 2 Const: COMMON NORMALS: patient oriented x3 and alert GENERAL APPEARANCE: c ooperative ORIENTATION/CONSCIOUSNESS: Yes awake HENMT: COMMON NORMALS: oropharynx normal Neck/C-Spine: COMMON NORMALS: no JVD Resp: COMMON NORMALS: normal respiratory effort and clear to auscultation bilaterally AUSCULTATION: clear to auscultation bilaterally Cardio: COMMON NORMALS: no JVD, regular rhythm, S1 normal heart sound present, S2 normal heart sound present and No murmurs present (Cardio) RHYTHM: regular rhythm HEART SOUNDS: S1 normal heart sound present and S2 normal heart sound present GI: COMMON NORMALS: Normal to inspection, nondistended, normoactive bowel sounds present, Soft to palpation and non-tender PALPATION: Yes Soft to palpation Extremity: COMMON NORMALS: no joint enlargement and no pedal edema Neuro: COMMON NORMALS: patient oriented x3 and moves all extremities S ENSORIUM/ORIENTATION: Yes alert OTHER: She is awake and alert, keenly following directions. I do not appreciate dysarthria or aphasia. No facial droop. No difficulties with horizontal tracking. No difficulties with FNF. Visual yeh full to confrontation, no visual extinction. No upper or lower extremity drift. Sensation symmetrical, no sensory extinction. Skin: COMMON NORMALS: no rashes or lesions noted GENERAL SKIN EXAM: no rashes or lesions noted Data 03/11/24 01:43 03/11/24 01:43 A&P Assessment and plan (1) HTN (hypertension): Qualifiers: Hypertension type: essential hypertension Qualified Code(s): I10 - Essential (primary) hypertension (2) CAD (coronary artery disease): Qualifiers: Coronary Disease-Associated Artery/Lesion type: [place] artery [place] vs. transplanted heart: [place] heart Associated angina: without angina Qualified Code(s): I25.10 - Atherosclerotic heart disease of [place] coronary artery without angina pectoris (3) PVC (premature ventricular contraction): (4) Sick sinus syndrome: (5) TIA (transient ischemic attack): (6) NSTEMI (non-ST elevated myocardial infarction): (7) Syncope: Qualifiers: Syncope type: unspecified Qualified Code(s): R55 - Syncope and collapse Plan Transient ischemic attack: Without recurrence. Symptoms so far resolved. Continue aspirin, she is intolerant of statin. She states she will consider and discuss PCSK9 inhibitors with her primary provider. She is wary of any question medications due to how severe her reaction was to statin. Discussed with her PCSK9 hemorrhoids are not in the same family as statins. Additionally discussed continuation of aspirin, ABCD squared score is 4, discussed consideration of long-term medical therapy with 21 days of Plavix, discussed also sick sinus syndrome and concern for increased risk of CVA with this condition, question of history of atrial fibrillation, may benefit from anticoagulation. Discussed with assisted living nursing director. Discussed with her also concern for possible NSTEMI, risk of stroke with NSTEMI. Reviewed CTA head and neck. Discussed with Nursing and case assembler. NSTEMI: Elevated with decreasing trend. Had an episode of chest tightness yesterday. Reviewed troponin series. EKG. CK. CBC, CMP and magnesium. History of known coronary disease in LAD and LCx, previously not requiring stenting. This was back in 2021. Discussed findings with her and her . Continue aspirin, anticoagulation at this time. Monitor for risk of bleeding with heparin drip. Reviewed PTT. Reassess blood counts. Beta-keri. Discussed with cardiology, appreciate consultation. On additional discussion of risks and benefits of further assessment including consideration of stress testing versus angiography versus other options, after discussion with cardiology she would like to proceed with stress testing. Lexiscan is requested per discussion with cardiology. N.p.o. after midnight. Monitor on telemetry with risk of arrhythmia STEMI, risk of reperfusion injury. Syncopal episode: Without recurrence. No further chest heaviness. Follow-up echocardiogram. ? Possibly related to Benadryl/contrast medium ? Continue to monitor closely ? Telemetry monitoring ? Serial troponins, telemetry monitoring ? Cardiac echo none send?pacemaker interrogation Lovenox for DVT prophylaxis ? CODE STATUS, patient is adamant that she is a DNR/DNI . if she does have significant deficits from a stroke or medical condition she does not want to be a burden on her family and at that point she just would want to be left comfortable Attestations 2 Medical Necessity Statement*: Continue admission for assessment management after TIA, NSTEMI. Diagnoses Essential hypertension I10 Hypertension type: essential hypertension Coronary artery disease involving [place] coronary artery of [place] heart without angina pectoris I25.10 Coronary Disease-Associated Artery/Lesion type: [place] artery [place] vs. transplanted heart: [place] heart Associated angina: without angina PVC (premature ventricular contraction) I49.3 Sick sinus syndrome I49.5 TIA (transient ischemic attack) G45.9 NSTEMI (non-ST elevated myocardial infarction) I21.4 Syncope R55 Syncope type: unspecified
[2024-03-11 18:02] LABS: Partial Thromboplastin Time 74.4 SECONDS (23.9-36.7)
[2024-03-11 23:31] LABS: Partial Thromboplastin Time 86.5 SECONDS (23.9-36.7)
[2024-03-12] VITALS: BP 114/70; PULSE 60; RESP 16; TEMP 36.4; O2SAT 97
[2024-03-12] MEDS: sodium chloride 0.9% 1,000 ML 75 ML IV (03:55)
[2024-03-12 05:25] VITALS: BP 133/78; PULSE 70; RESP 16; TEMP 36.4; O2SAT 95
[2024-03-12 05:53] LABS: Basophils # 0.1 10^3/uL (0.0-0.1); Basophils % 0.7 %; Eosinophils # 0.1 10^3/uL (0.0-0.8); Eosinophils % 0.6 %; Hematocrit 37.2 % (36-47); Lymphocytes # 2.8 10^3/uL (0.8-4.8); Lymphocytes % 25.6 %; Mean Corpuscular Hemoglobin 29.6 pg (27-33); Mean Corpuscular Volume 92.5 fl (85-98); Monocytes # 0.7 10^3/uL (0.2-0.9); Monocytes % 6.4 %; Neutrophils # 7.15 10^3/uL (1.8-7.7); Neutrophils % 66.4 %; Nucleated Red Blood Cells % 0 %; Platelet Count 215 10^3/cmm (157-399); Red Blood Count 4.02 10^6/uL (3.85-5.65); Red Cell Distribution Width 14.8 % (12.1-15.1); White Blood Count 10.77 10^3/uL (3.29-11.43)
[2024-03-12 06:11] LABS: Alanine Aminotransferase 17 U/L (0-33); Albumin Level 3.3 g/dL (3.5-5.2); Alkaline Phosphatase 79 U/L (35-105); Anion Gap 11.9 (5-19); Aspartate Amino Transferase 24 U/L (0-32); Blood Urea Nitrogen 11 mg/dL (8-23); Calcium 8.2 mg/dL (8.5-10.5); Carbon Dioxide 23 mmol/L (22-29); Chloride 108 mmol/L (98-107); Creatinine Clr Calc Pharmacy 59.5373; Globulin 2.1 g/dL (1.3-4.6); Glucose 119 mg/dL (65-115); Osmolality Calculated 289 mOsm/kg (285-295); Potassium 3.9 mmol/L (3.5-5.1); Sodium 139 mmol/L (136-145); Total Bilirubin 0.4 mg/dL (0.15-1.2); Total Protein 5.4 g/dL (6.6-8.7)
[2024-03-12 06:12] LABS: Partial Thromboplastin Time 78.9 SECONDS (23.9-36.7)
[2024-03-12] MEDS: regadenoson 0.4 Mg/5 ml Syringe 0.400000000000000022 MG IVP (07:35)
[2024-03-12 07:50] VITALS: BP 136/85; PULSE 86
[2024-03-12] MEDS: aminophylline 25 mg/mL SDV 10 mL IVP (07:50)
[2024-03-12 07:58] VITALS: BP 136/85; PULSE 86
--- NOTE | 2024-03-12 08:00 | ECG_ITS ---
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 Interpretive Statements NAME OF STUDY: LEXISCAN SESTAMIBI STRESS TEST INDICATION: Chest Pain, Elevated trop, CAD, PROCEDURE: At the baseline, the EKG revealed sinus rhythm with a right bundle branch block pattern. Frequent PVCs and supraventricular ectopics. Nonspecific ST-T changes.. The baseline heart was 92 bpm with a blood pressue of 147/99 mm of Hg Lexiscan was infused over a period of 20 seconds. A total of 0.4 milligrams of Lexiscan was infused. The stress phase was continued for a total of 5 minutes. Heart rate at the end of the stress phase was 106 bpm with a blood pressure 136/88 mm of Hg. The EKG at the peak infusion revealed no significant changes. Sestamibi was injected 20 seconds after the Lexiscan infusion. Heart rate at the end of the recovery phase was 86 bpm with a blood pressure of 136/85 mm of Hg. CONCLUSION: 1. No significant EKG changes with the LexiScan infusion 2. No LexiScan induced chest pain or cardiac arrhythmia 3. Normal blood pressure and heart rate response 4. Sestamibi/sestamibi perfusion scan pending; see separate report. Electronically Signed On 03-14-2024 18:13:42 CDT by Hortencia Murcia M.D. [email or web address], [id number]
--- NOTE | 2024-03-12 08:04 | PM.PN ---
Subjective Subjective: Patient is doing well. No chest pain. Vitals/I&O/Wt Last Vital Signs Temp 97.6 F 03/12/24 05:25 Pulse 70 03/12/24 05:25 Resp 16 03/12/24 05:25 BP 133/78 03/12/24 05:25 Pulse Ox 95 03/12/24 05:25 O2 Del Method Room Air 03/11/24 16:00 03/11/24 03/12/24 03/12/24 22:59 06:59 14:59 Intake Total 120 / 2625.034 9736.817 / 2424.645 Balance 120 / 9732.872 4079.817 / 2424.645 Weight last 48 hrs Weight 151 lb Weight 148 lb 6.4 oz Weight 148 lb 6.4 oz Physical Exam Narrative: GENERAL: Patient is alert, awake and oriented x3. [] NECK: No jugular vein distension. [] HEENT: No cyanosis. No icterus. No pallor. [] HEART: Regular S1 and S2. No murmur, rub or gallop. [] LUNGS: Clear to auscultate bilaterally. [] CENTRAL NERVOUS SYSTEM: Grossly nonfocal. [] EXTREMITIES: Lower extremities with 1+ edema bilaterally. Data 03/12/24 05:47 03/12/24 05:47 A&P Assessment and plan (1) HTN (hypertension): Qualifiers: Hypertension type: essential hypertension Qualified Code(s): I10 - Essential (primary) hypertension (2) CAD (coronary artery disease): Qualifiers: Coronary Disease-Associated Artery/Lesion type: [place] artery [place] vs. transplanted heart: [place] heart Associated angina: without angina Qualified Code(s): I25.10 - Atherosclerotic heart disease of [place] coronary artery without angina pectoris (3) Cardiomyopathy: Qualifiers: Cardiomyopathy type: unspecified Qualified Code(s): I42.9 - Cardiomyopathy, unspecified (4) PVC (premature ventricular contraction): (5) Sick sinus syndrome: (6) Pacemaker: (7) Troponin level elevated: (8) Atrial fibrillation: Qualifiers: Atrial fibrillation type: paroxysmal Qualified Code(s): I48.0 - Paroxysmal atrial fibrillation Plan Stress test most likely consistent with attenuation artifact. Continue medical therapy. Thank you for involving us with care of this patient. Please call with questions. Close cardiology follow up. Attestations Medical Necessity Statement*: Care expected to cross 2 midnights. Coding Level of Care Code Acute Code for Chg Fwd Diagnoses Essential hypertension I10 Hypertension type: essential hypertension Coronary artery disease involving [place] coronary artery of [place] heart without angina pectoris I25.10 Coronary Disease-Associated Artery/Lesion type: [place] artery [place] vs. transplanted heart: [place] heart Associated angina: without angina Cardiomyopathy, unspecified type I42.9 Cardiomyopathy type: unspecified PVC (premature ventricular contraction) I49.3 Sick sinus syndrome I49.5 Pacemaker Z95.0 Troponin level elevated R79.89 Paroxysmal atrial fibrillation I48.0 Atrial fibrillation type: paroxysmal
[2024-03-12] MEDS: aspirin 81 mg EC Tablet PO (09:32)
--- NOTE | 2024-03-12 14:08 | PM.DCS ---
Discharge Providers Date of Admission: 03/12/24 08:43 Date of Discharge: March 12, 2024 Attending Provider at Admission: Fran Sam MD Attending Provider at Discharge: Shashi Veronica Primary Care Provider: Reddy Szymanski MD Diagnoses at Discharge Discharge Diagnosis (1) HTN (hypertension): Status: Acute Qualifiers: Hypertension type: essential hypertension Qualified Code(s): I10 - Essential (primary) hypertension (2) CAD (coronary artery disease): Status: Acute Qualifiers: Associated angina: without angina Coronary Disease-Associated Artery/Lesion type: osage artery [place] vs. transplanted heart: osage heart Qualified Code(s): I25.10 - Atherosclerotic heart disease of osage coronary artery without angina pectoris (3) Cardiomyopathy: Status: Acute Qualifiers: Cardiomyopathy type: unspecified Qualified Code(s): I42.9 - Cardiomyopathy, unspecified (4) PVC (premature ventricular contraction): Status: Acute (5) Sick sinus syndrome: Status: Acute (6) Pacemaker: Status: Acute (7) Troponin level elevated: Status: Acute (8) Atrial fibrillation: Status: Acute Reason for Visit Reason for Visit: Possible Stroke Brief History: Jacquie Elliott is a 73 year old female with a past medical history of PVCs, sick sinus syndrome, pacemaker in place, hypertension, who presents to [facility] due to slurring of her words, word finding difficulty, blurry vision. Currently patient is alert oriented x 4, following all commands, NIH stroke scale is 0, she tells me that this evening at about 7 PM, she was sitting down to have dinner, when she started noticing that she had word finding difficulty, trouble coming up with the right words, with slurring of her words, and visual deficits, code stroke was initiated, CT head was within normal limits, upon neurology evaluation, patient was back to her baseline, NIH stroke scale 0, was not a tPA candidate at that point, CT angiogram of head and neck ordered showed that she had 50% narrowing of the distal right common carotid artery, of note, when patient received her CTA, she had a contrast allergy so she was given Solu-Medrol and Benadryl, she had an episode in which after receiving the Benadryl at some point, she started complaining of chest heaviness, and she lost consciousness, heart heart rates was increased on the telemetry monitoring, rhythm is unknown, she had a pulse, she was spontaneously breathing, after a few moments, she regained consciousness, she denies currently any chest pain, any lightheadedness, denies prior history of syncopal episodes, does have a history of sick sinus syndrome, pacemaker in place. During my assessment, deep into conversation she does have word finding difficulty at times such as when asked her what her reaction to statin was, she became very flustered and upset with her as she could not remember what exactly happened when she took a statin but eventually remembered that she had an adverse reaction that was myopathy. I also did extensive neurologic testing, her [id number] on the left side was abnormal, but when I reassessed it a few minutes later, it was within normal limits 6-hour troponin 134, delta 126, has received aspirin, intolerant to statin, no active complaints of chest pain, reviewed EKG, no acute ST-T wave changes, for NSTEMI, will start heparin drip, cardiac echo ordered, will consider stress testing or cardiac cath based on clinical progress patient did have a cath 2021 Conclusions 1. Moderate mid LAD and mid left circumflex artery stenosis. iFR is nonischemic for both vessels.. -Given troponin elevation could be possible LAD and circumflex lesions that could be the reason why the troponins elevating, nonetheless workup as above Hospital Course Hospital Course She was assessed by neurology, not found to be a candidate for tPA, MRI due to PPM, was started scheduled aspirin, prior to this use aspirin only intermittently, on heparin drip with elevated trop, chest heaviness episode, concern for possible NSTEMI with history of CAD, echocardiogram was performed, she was seen by cardiology for NSTEMI. She reports a severe intolerance to statin with symptoms that were so severe that she is unwilling to try any other statin or related medication that could give her similar side effects. She will consider discussing with her primary provider regarding submitting a complication for PCSK9 inhibitor as per discussion of possible cardiovascular benefit. She did not have any appetite yesterday and did not eat anything other than some crackers. Her neurologic symptoms did not recur after gradual resolution. CT angiogram head and neck revealed no significant neck or intracranial stenosis. Blood pressures were initially elevated improved through the hospital stay with resumption of her usual atenolol dose. A1c is requested. She does have sick sinus syndrome and on review of prior EKG had 1 that registered atrial fibrillation. As per discussion with her with increasing stroke risk and per discussion with cardiology she would benefit from stroke risk reduction with anticoagulation, on discussion of risks, benefits, alternatives, and number of anticoagulation options were considered, initially considering Eliquis, on further discussion with cardiology she decided to go with Xarelto. She understands the risk of bleeding with aspirin, DOAC, knows to hold medication and seek medical attention in case of any non-minor bleeding; and make effort to avoid any injury or trauma to reduce risk of potentially dangerous bleeding. As per discussion with cardiology with prior coronary disease, echocardiogram with diffuse hypokinesia, ejection fraction 40 to 45%, mild to moderate mitral valve regurgitation, trace TVR, mild biatrial enlargement, further options for assessment of possible NSTEMI, coronary disease, episodes of chest pain, syncope were discussed and she agreed with discussion with cardiology for additional assessment by stress test. During the stress that she has some symptoms of discomfort/pain radiating up the sides of her neck. After the stress test she felt lightheaded and had a presyncopal/syncopal event after getting up from the chair. She was reassessed by cardiology. Stress test showed small area of prior infarct with jaclyn-infarct ischemia in LCx territory versus attenuation artifact, normal LV function. On later reassessment and further discussion she was cleared for discharge by cardiology and is asked to follow-up in office with my physician in 1 week for reassessment, further appointments will be scheduled from there. Please follow up and continue to improove cardiovascular risks and management of blood pressure. Of note one reading of glucose noted at 157. No history of diabetes. A1c is requested, please follow-up. Physical Exam Narrative: She is awake and alert, pleasant, conversant, sitting up in bed, accompanied by her . Const: COMMON NORMALS: patient oriented x3 and alert GENERAL APPEARANCE: cooperative ORIENTATION/CONSCIOUSNESS: Yes awake HENMT: COMMON NORMALS: oropharynx normal Neck/C-Spine: COMMON NORMALS: no JVD Resp: COMMON NORMALS: normal respiratory effort and clear to auscultation bilaterally AUSCULTATION: clear to auscultation bilaterally Cardio: COMMON NORMALS: no JVD, regular rhythm, S1 normal heart sound present, S2 normal heart sound present and No murmurs present (Cardio) RHYTHM: regular rhythm HEART SOUNDS: S1 normal heart sound present and S2 normal heart sound present GI: COMMON NORMALS: Normal to inspection, nondistended, normoactive bowel sounds present, Soft to palpation and non-tender PALPATION: Yes Soft to palpation Extremity: COMMON NORMALS: no joint enlargement and no pedal edema Neuro: COMMON NORMALS: patient oriented x3 and moves all extremities SENSORIUM/ORIENTATION: Yes alert OTHER: She is awake and alert, keenly responsive. I do not appreciate dysarthria or aphasia. No facial droop. No difficulty tracking to either side. Moving all extremities. Skin: COMMON NORMALS: no rashes or lesions noted GENERAL SKIN EXAM: no rashes or lesions noted Discharge Data Studies Completed and Pending Completed Studies During Hospitalization Category Date Time Status CT head thrombolytic [id number] Stat Cat Scan 03/10/24 19:21 Completed CTA head neck [CT angio headneck* [id number]] Stat Cat Scan 03/10/24 19:44 Completed Cardiac Stress Test MIBI [Sestamibi Stress Test Request Exams 03/12/24 08:00 Draft ] Routine XR chest 1V portable [id number] Stat Exams 03/10/24 19:21 Completed NM hallie perf SPECT r/s* [id number] Routine Nuc Med 03/12/24 17:34 Completed CV. echo complete* [id number] Routine Ultrasound 03/10/24 22:51 Completed Pending at discharge Category Date Time Status Complete Blood Count w/Auto AM LABS Lab 03/13/24 04:00 Ordered Complete Blood Count w/Auto AM LABS Lab 03/14/24 04:00 Ordered Comprehensive Metabolic Panel AM LABS Lab 03/13/24 04:00 Ordered Comprehensive Metabolic Panel AM LABS Lab 03/14/24 04:00 Ordered PTT [Partial Thromboplastin Time] Timed Lab 03/12/24 13:11 Received Platelet Count Q2D Lab 03/13/24 04:00 Ordered Platelet Count Q2D Lab 03/15/24 04:00 Ordered Radiology Impressions Chest X-Ray 03/10/24 19:21 IMPRESSION: No acute findings. Head CT 03/10/24 19:21 IMPRESSION: No acute intracranial abnormality. ASSESSMENT: ASPECTS ([place] Stroke Program Early CT Score) is 10. Head/Neck CTA 03/10/24 19:44 IMPRESSION: No large vessel stenosis or occlusion. IMPRESSION: No occlusive disease. 50% narrowing distal right common carotid artery. REFERENCES: NASCET CRITERIA. The degree of stenosis in the cervical segment of the internal carotid artery is based on NASCET criteria. Normal is no stenosis. Mild is less than 50% stenosis. Moderate is 50-69% stenosis. Severe is 70% to 99% stenosis. Total occlusion is no detectable patent lumen. Laboratory Results WBC 10.77 10^3/uL (3.29-11.43) 03/12/24 05:47 RBC 4.02 10^6/uL (3.85-5.65) 03/12/24 05:47 Hgb 11.90 g/dL (11.27-16.99) 03/12/24 05:47 Hct 37.2 % (36-47) 03/12/24 05:47 MCV 92.5 fl (85-98) 03/12/24 05:47 MCH 29.6 pg (27-33) 03/12/24 05:47 MCHC 32.0 g/dL (30-55) 03/12/24 05:47 RDW 14.8 % (12.1-15.1) 03/12/24 05:47 Plt Count 215 10^3/cmm (157-399) 03/12/24 05:47 MPV 9.0 fL (7.4-10.4) 03/12/24 05:47 Neut % (Auto) 66.4 % 03/12/24 05:47 Lymph % (Auto) 25.6 % 03/12/24 05:47 Villalba % (Auto) 6.4 % 03/12/24 05:47 Eos % (Auto) 0.6 % 03/12/24 05:47 Baso % (Auto) 0.7 % 03/12/24 05:47 Neut # (Auto) 7.15 10^3/uL (1.8-7.7) 03/12/24 05:47 Lymph # (Auto) 2.8 10^3/uL (0.8-4.8) 03/12/24 05:47 Villalba # (Auto) 0.7 10^3/uL (0.2-0.9) 03/12/24 05:47 Eos # (Auto) 0.1 10^3/uL (0.0-0.8) 03/12/24 05:47 Baso # (Auto) 0.1 10^3/uL (0.0-0.1) 03/12/24 05:47 Nucleated RBC % (auto) 0 % 03/12/24 05:47 Nucleated RBCs # 0.0 /100WBC 03/12/24 05:47 PT 11.80 SECONDS (12.1-14.9) L 03/10/24 19:35 INR 0.85 (0.8-1.2) 03/10/24 19:35 APTT 78.9 SECONDS (23.9-36.7) H 03/12/24 05:47 Sodium 139 mmol/L (136-145) 03/12/24 05:47 Potassium 3.9 mmol/L (3.5-5.1) 03/12/24 05:47 Chloride 108 mmol/L (98-107) H 03/12/24 05:47 Carbon Dioxide 23 mmol/L (22-29) 03/12/24 05:47 Anion Gap 11.9 (5-19) 03/12/24 05:47 BUN 11 mg/dL (8-23) 03/12/24 05:47 Creatinine 0.5 mg/dL (0.5-0.9) 03/12/24 05:47 GFR Calculation Not Reportable 03/12/24 05:47 Glucose 119 mg/dL (65-115) H 03/12/24 05:47 Calculated Osmolality 289 mOsm/kg (285-295) 03/12/24 05:47 Lactic Acid 1.5 mmol/L (0.5-2.2) 03/10/24 21:55 Calcium 8.2 mg/dL (8.5-10.5) L 03/12/24 05:47 Phosphorus 2.8 mg/dL (2.5-4.5) 03/11/24 01:43 Magnesium 2.1 mg/dL (1.7-2.3) 03/11/24 01:43 Total Bilirubin 0.4 mg/dL (0.15-1.2) 03/12/24 05:47 AST 24 U/L (0-32) 03/12/24 05:47 ALT 17 U/L (0-33) 03/12/24 05:47 Alkaline Phosphatase 79 U/L (35-105) 03/12/24 05:47 Creatine Kinase 210 U/L (26-192) H 03/10/24 21:55 Troponin T Baseline 113 ng/L (0-10) H* 03/11/24 05:31 Troponin T 120 Minute 109.6 ng/L (0-10) H 03/11/24 06:51 Delta Troponin T -3.4 ABS# (0-10) L 03/11/24 06:51 Troponin T Hi Sens 6Hr 95.86 ng/L (0-10) H 03/11/24 11:55 Troponin T Hi Sens 6Hr Delta -17.14 ng/L (0-12) L 03/11/24 11:55 C-Reactive Protein 3.0 mg/L (0.0-4.9) 03/10/24 19:35 Total Protein 5.4 g/dL (6.6-8.7) L 03/12/24 05:47 Albumin 3.3 g/dL (3.5-5.2) L 03/12/24 05:47 Globulin 2.1 g/dL (1.3-4.6) 03/12/24 05:47 Triglycerides 99 mg/dL (0-150) 03/10/24 21:55 Cholesterol 257 mg/dL (0-200) H 03/10/24 21:55 LDL Cholesterol, Calc 180 mg/dL (50-129) H 03/10/24 21:55 HDL Cholesterol 57 mg/dL (60-100) L 03/10/24 21:55 LDL/HDL Ratio 3.16 RATIO (0.00-3.22) 03/10/24 21:55 Cholesterol/HDL Ratio 4.51 mg/dL (0.0-4.40) H 03/10/24 21:55 Procalcitonin 0.03 ng/mL (0-0.5) 03/10/24 21:55 TSH 10.72 uIU/mL (0.27-4.20) H 03/10/24 19:35 Free T4 1.08 ng/dL (0.82-1.77) 03/10/24 21:55 Free T3 2.8 PG/ML (2.0-4.4) 03/10/24 21:55 Urine Color Yellow (Yellow) 03/10/24 20:12 Urine Appearance Clear (CLEAR) 03/10/24 20:12 Urine pH 5 (5-7) 03/10/24 20:12 Ur Specific [place] 1.025 (1.005-1.030) 03/10/24 20:12 Urine Protein Neg (Negative) 03/10/24 20:12 Urine Glucose (UA) Norm (Normal) 03/10/24 20:12 Urine Ketones 1+ (Negative) H 03/10/24 20:12 Urine Blood Neg (Negative) 03/10/24 20:12 Urine Nitrate Negative (Negative) 03/10/24 20:12 Urine Bilirubin Neg (Negative) 03/10/24 20:12 Urine Urobilinogen Norm mg/dL (Negative) 03/10/24 20:12 Ur Leukocyte Esterase Negative (Negative) 03/10/24 20:12 Urine Opiates Screen Negative ng/mL (Negative) 03/10/24 20:12 Ur Barbiturates Screen Negative ng/mL (Negative) 03/10/24 20:12 Ur Phencyclidine Scrn Negative ng/mL (Negative) 03/10/24 20:12 Ur Amphetamines Screen Negative ng/mL (Negative) 03/10/24 20:12 U Benzodiazepines Scrn Negative ng/mL (Negative) 03/10/24 20:12 Urine Cocaine Screen Negative ng/mL (Negative) 03/10/24 20:12 U Marijuana (THC) Screen Negative ng/mL (Negative) 03/10/24 20:12 Vitals Last Vital Signs Temp 97.6 F 03/12/24 05:25 Pulse 86 03/12/24 07:58 Resp 16 03/12/24 05:25 BP 136/85 03/12/24 07:58 Pulse Ox 95 03/12/24 05:25 O2 Del Method Room Air 03/11/24 16:00 Discharge Plan Discharge Patient Disposition: Home Condition: Stable Prescriptions: New aspirin 81 mg Tablet,Delayed Release (Dr/Ec) 81 mg PO DAILY Qty: 90 0RF Xarelto 20 mg tablet 20 mg PO DAILY Qty: 90 0RF Rx Instructions: must administer with evening meal Continued azelaic acid [Finacea] 15 % gel 1 applic topical BID cholecalciferol (vitamin D3) 125 mcg (5,000 unit) capsule See Rx Instructions .ROUTE .COMPLEX Qty: 30 3RF Dose Instruction: take 1 capsule BY MOUTH every DAY Rx Instructions: 1 tablet every Saturday and every other atenolol 25 mg tablet 25 mg PO QAM Discontinued aspirin 325 mg Tablet See Rx Instructions .ROUTE .COMPLEX Rx Instructions: patient states she cuts the tablet into quarters and takes a quarter tablet once in a while Discharge Orders: Discharge Order (Routine); Ordered 03/12/24 Ordered By: Shashi Veronica Referrals: [facility]UROSCI[facility] PROVIDERS [Provider Group] - 1 week (TIA We have notified your physician's clinic of the need for a follow-up appointment to be scheduled. If you have not heard from them within the next 2 business days, please call them directly. ) Linda Jaime FNP [Nurse Practitioner] - 1 week (We have notified your physician's clinic of the need for a follow-up appointment to be scheduled. If you have not heard from them within the next 2 business days, please call them directly. ) Reddy Szymanski MD [Primary Care Provider] - 03/18/24 10:20 am Discharge Diet: Cardiac Patient Instructions: Aspirin (By mouth), Rivaroxaban (By mouth) (Xarelto, Xarelto Starter Pack), Transient Ischemic Attack (GEN), Coronary Artery Disease (GEN), A-fib (Atrial Fibrillation) (GEN), Hypertension (GEN), Sick Sinus Syndrome (GEN) Activity Restrictions/Additional Instructions: Follow-up with your primary provider and neurology in clinic after transient ischemic attack. Continue aspirin 81 mg daily. Discussed, revisit with your primary provider consideration of applying for PCSK9 inhibitor. Monitor your blood pressures 3 times daily, stay values to bring to your appointment. Follow-up with your primary provider and with cardiology for reassessment of coronary artery disease, continued optimization of cardiovascular risks. Consider application for PCSK9 inhibitor. Please note your glucose was mildly elevated on presentation 157, without prior history of diabetes, please maintain consistent carbohydrate diet, A1c test is requested and pending - please follow-up with your primary provider. Follow-up with your primary doctor and cardiology regarding sick sinus syndrome, historical episode of atrial fibrillation, start of anticoagulation to help decrease stroke risk. As discussed, mindful of risk of bleeding with anticoagulation together with aspirin, avoid injury. In case of bleeding that is not minor, bleeding does not stop pain, or any concerns, seek medical attention. Seek medical attention in case of any worsening or new concerning symptoms. Discharge Attestations Time Spent in Discharge Care*: greater than 30 min Quality Metrics Clinical Quality Measures [ Acute Myocardial Infaction { Clinical Trial Participant: No; Contraindication to aspirin: None; Aspirin prescribed; Contraindication to statin: Adverse reaction to drug;}. Cerebrovascular Accident { Contraindication to Antithrombotic: None; antithrombotic prescribed; Contraindication to Anticoagulation: None; anticoagulation prescribed; Contraindication to Statin: Adverse reaction to drug;}] Coding Level of Care Code 43509 Total time (in minutes) for Discharge: 55 Diagnoses Essential hypertension I10 Hypertension type: essential hypertension Coronary artery disease involving [place]age coronary artery of [place] heart without angina pectoris I25.10 Associated angina: without angina Coronary Disease-Associated Artery/Lesion type: [place] artery [place] vs. transplanted heart: osage heart Cardiomyopathy, unspecified type I42.9 Cardiomyopathy type: unspecified PVC (premature ventricular contraction) I49.3 Sick sinus syndrome I49.5 Pacemaker Z95.0 Troponin level elevated R79.89 Atrial fibrillation I48.91
[2024-03-12 14:10] LABS: Partial Thromboplastin Time 28.7 SECONDS (23.9-36.7)
[2024-03-12 14:44] LABS: Estmated Average Glucose 105; Hemoglobin A1C 5.3 % (4.0-6.0)
[2024-03-12 15:18] VITALS: BP 136/85; PULSE 86; RESP 16; TEMP 36.4; O2SAT 95
--- NOTE | 2024-03-12 17:34 | NMCV_ITS ---
NM hallie perf SPECT r/s* [id number] Jacquie Elliott Age: 73 Gender: F : 1950 Exam Date: 03/12/2024 06:15 Ordering Phys: Shashi Veronica MD Technologist: HAL Carter Exam Location: [facility] [address] Indications: CHEST PAIN STRESS TEST Please see separate stress test report in [facility] for full findings IMAGE PROTOCOL Rest/Stress 1 Lexiscan Day Radiopharmaceutical Dose (mCi) Administration Site Administered by Rest: Tc-99m 10.6 IV HAL Layton Sestamibi Stress:Tc-99m 32.3 IV HAL Layton Sestamibi Rest: 12-Mar-2024 60 Discovery 630 Stress: 12-Mar-2024 30 Discovery 630 0.4mg Lexiscan. Images obtained in supine and prone position. SPECT RESULTS Technical Quality: Excellent Raw Data Analysis: Normal Image Corrections: No attenuation or motion correction applied Summed Stress Score: 3 Summed Rest Score: 1 Summed Difference Score: 3 PERFUSION FINDINGS There is a small area of inconsistent, partially reversible perfusion defect noted in the inferolateral wall. This may represent attenuation artifact vs small area of prior infarct with minimal jaclyn-infarct ischemia noted in the left circumflex artery territory. FUNCTIONAL RESULTS (calculated via Gated SPECT) Stress Image LV EF (%): 48 Stress EDV (mL):90 TID: 0.87 Stress ESV (mL):47 FUNCTIONAL FINDINGS: LV systolic function is mildly reduced IMPRESSIONS 1. Attenuation artifact versus small area of prior infarct with jaclyn-infarct ischemia in left circumflex artery territory. 2. LV systolic function is normal. Chinedu Rodriguez MD (Electronically Signed) Final Date: 12 Mar 2024 11:10 S
== END 2024-03-12 15:27 | disposition home or self-care (01) | DRG 69 ==
LOC: ER 21:56 → MEDSURG 21:57
PROVIDERS: Emergency Medicine; Admitting Provider Family Medicine; Emergency Provider Emergency Medicine; PCP Family Medicine; Visit Provider Internal Medicine
DX: G45.9 Transient cerebral ischemic attack, unspecified (principal); I21.4 Non-ST elevation (NSTEMI) myocardial infarction; I42.9 Cardiomyopathy, unspecified; R47.01 Aphasia; I10 Essential (primary) hypertension; I25.10 Atherosclerotic heart disease of native coronary artery without angina pectoris; I49.5 Sick sinus syndrome; Z95.0 Presence of cardiac pacemaker; R55 Syncope and collapse; Z66 Do not resuscitate; R47.81 Slurred speech; H53.8 Other visual disturbances; R29.700 NIHSS score 0
CPT/HCPCS: 36415; 70450; 70496; 70498; 71045; 78452; 80048; 80053; 80061; 80306; 81003; 82550; 83036; 83605; 83735; 84100; 84145; 84439; 84443; 84481; 84484; 85025; 85610; 85730; 86140; 93005; 93017; 93306; 96374; 96375; 99285; A9500; G0378; J0280; J1200; J1644; J2785; J2919; J7030; Q9967

== ENCOUNTER 2024-03-16 15:16 | Outpatient (CLI) | payer MEDICARE, OTHER, SELFPAY | END 2024-03-16 15:17 | disposition home or self-care (01) | LOC: LAB 03-17 08:55 | PROVIDERS: PCP Family Medicine; Visit Provider Clinical Nurse Specialist Adult Health | DX: R25.2 Cramp and spasm (principal); E55.9 Vitamin D deficiency, unspecified; M72.2 Plantar fascial fibromatosis | CPT/HCPCS: 80048; 82306; 83735 ==

== ENCOUNTER → 2024-03-25 12:38 | Outpatient (BNVA) | payer MEDICARE, OTHER, SELFPAY | PROVIDERS: PCP Family Medicine; Visit Provider Nurse Practitioner Family | DX: I25.10 Atherosclerotic heart disease of native coronary artery without angina pectoris (principal); I10 Essential (primary) hypertension; I48.0 Paroxysmal atrial fibrillation; Z95.0 Presence of cardiac pacemaker; Z79.01 Long term (current) use of anticoagulants | CPT/HCPCS: 99214 ==

== ENCOUNTER → 2024-05-21 12:52 | Outpatient (BNVA) | payer MEDICARE, OTHER, SELFPAY | PROVIDERS: PCP Family Medicine; Visit Provider Podiatrist Foot & Ankle Surgery | DX: B35.1 Tinea unguium (principal) | CPT/HCPCS: 99203 ==

== ENCOUNTER → 2024-06-04 13:54 | Outpatient (BNVA) | payer MEDICARE, OTHER, SELFPAY | PROVIDERS: PCP Family Medicine; Visit Provider Podiatrist Foot & Ankle Surgery | DX: B35.1 Tinea unguium (principal) | CPT/HCPCS: 99213 ==

== ENCOUNTER 2024-07-29 12:40 | Outpatient (CLI) | payer MEDICARE, OTHER, SELFPAY ==
--- NOTE | 2024-07-29 12:47 | XRR_ITS ---
PROCEDURE INFORMATION: Exam: XR Left Ribs Exam date and time: 07/29/2024 12:55 PM Age: 73 years old Clinical indication: Chest wall pain; Prior surgery; Surgery date: 6+ months; Surgery type: Lower left lobectomy; Patient HX: Left rib pain after pulling car door today, felt a pop TECHNIQUE: Imaging protocol: Radiologic exam of the left ribs. Views: 2 views. COMPARISON: CR XR chest 1V portable [id number] 03/10/2024 7:26 PM FINDINGS: Bones/joints: No evidence of rib fracture. Soft tissues: Normal. XR/XR ribs LT 2V* [id number] IMPRESSION: No acute findings.
== END 2024-07-29 12:41 | disposition home or self-care (01) ==
LOC: RAD 12:42
PROVIDERS: PCP Family Medicine; Visit Provider Family Medicine
DX: R07.81 Pleurodynia (principal); Z90.2 Acquired absence of lung [part of]
CPT/HCPCS: 71100

== ENCOUNTER 2024-09-17 13:26 | Outpatient (CLI) | payer MEDICARE, OTHER, SELFPAY ==
--- NOTE | 2024-09-17 13:35 | XR_ITS ---
WS: [id number] Thoracic spine, 3 views, 09/17/2024 Clinical Data: acute back pain Comparison: None. Findings: No compression fractures are seen. The disc heights are normal. There is minimal osteoarthritic spurring of the mid and lower thoracic vertebral bodies. The paravert ebral regions are normal. The left diaphragm is flattened. There is a 2-lead cardiac pacemaker. 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
--- NOTE | 2024-09-17 13:35 | XR_ITS ---
WS: [id number] Lumbar spine, AP and lateral views, 09/17/2024 Clinical Data: back pain Comparison: Lumbar spine, 08/15/2023 Findings: There is a compression fracture of L1 vertebral body unchanged. There is diffuse osteoporosis and a g entle levoscoliosis. Anterior spurring is present from L1-L3. The disc height are normal. The transverse processes and SI joints are normal. On flexion and extension there is no instability. The abdominal aorta shows calcification but no aneurysm. There is a pacemaker wire in the heart. XR/XR lumbar spine 2-3V* [id number] Impression: 1. No change in L1 compression fracture, osteoporosis, levoscoliosis and anteri or spurring. 2. No instability on flexion or extension.
== END 2024-09-17 13:27 | disposition home or self-care (01) ==
LOC: RAD 13:29
PROVIDERS: PCP Family Medicine; Visit Provider Family Medicine
DX: M54.9 Dorsalgia, unspecified (principal); M81.0 Age-related osteoporosis without current pathological fracture; I10 Essential (primary) hypertension; I25.10 Atherosclerotic heart disease of native coronary artery without angina pectoris; I48.0 Paroxysmal atrial fibrillation
CPT/HCPCS: 72070; 72100; 80053; 82306; 85025

== ENCOUNTER → 2024-09-24 08:05 | Outpatient (BNVA) | payer MEDICARE, OTHER, SELFPAY | PROVIDERS: PCP Family Medicine; Visit Provider Specialist | DX: G45.9 Transient cerebral ischemic attack, unspecified (principal); Z95.0 Presence of cardiac pacemaker | CPT/HCPCS: 99214; 99215 ==

== ENCOUNTER → 2024-10-06 14:42 | Outpatient (BNVA) | payer MEDICARE, OTHER, SELFPAY | PROVIDERS: PCP Family Medicine; Visit Provider Internal Medicine | DX: I48.0 Paroxysmal atrial fibrillation (principal); I10 Essential (primary) hypertension; I42.9 Cardiomyopathy, unspecified; I49.5 Sick sinus syndrome; Z95.0 Presence of cardiac pacemaker; G45.9 Transient cerebral ischemic attack, unspecified; Z79.01 Long term (current) use of anticoagulants | CPT/HCPCS: 99214 ==

== ENCOUNTER → 2024-11-05 11:58 | Outpatient (BNVA) | payer MEDICARE, OTHER, SELFPAY | PROVIDERS: PCP Family Medicine; Visit Provider Internal Medicine | DX: I48.0 Paroxysmal atrial fibrillation (principal); I10 Essential (primary) hypertension; I42.9 Cardiomyopathy, unspecified; I49.5 Sick sinus syndrome; Z95.0 Presence of cardiac pacemaker; G45.9 Transient cerebral ischemic attack, unspecified; Z79.01 Long term (current) use of anticoagulants | CPT/HCPCS: 99213 ==

== ENCOUNTER 2024-11-14 16:13 | Emergency (ER) | payer MEDICARE, OTHER, SELFPAY ==
[2024-11-14 16:14] VITALS: BP 177/91; PULSE 50; RESP 16; TEMP 36.4; O2SAT 99; BMI 23.5
--- NOTE | 2024-11-14 16:14 | XRR_ITS ---
PROCEDURE INFORMATION: Exam: XR Left Ankle Exam date and time: 11/14/2024 4:23 PM Age: 74 years old Clinical indication: Left; Patient HX: Lt lateral ankle pain after rolling pain; Additional info: Injury TECHNIQUE: Imaging protocol: Radiologic exam of the left ankle. Views: 3 or more views. COMPARISON: No relevant prior studies available. FINDINGS: Bones/joints: Normal. Soft tissues: Normal. XR/XR ankle LT min 3V* [id number] IMPRESSION: No acute findings.
--- NOTE | 2024-11-14 16:57 | XRR_ITS ---
PROCEDURE INFORMATION: Exam: XR Left Foot Exam date and time: 11/14/2024 5:06 PM Age: 74 years old Clinical indication: Pain; Foot; Left; Additional info: Pain, injury TECHNIQUE: Imaging protocol: Radiologic exam of the left foot. Views: 3 or more views. COMPARISON: CR (LOW EXM, ) 11/14/2024 4:23 PM FINDINGS: Bones/joints: No acute fracture or other acute osseous abnormality. Joint spaces are normal. The bones appear demineralized. Soft tissues: Normal. XR/XR foot LT min 3V* [id number] IMPRESSION: Nonacute findings.
--- NOTE | 2024-11-14 17:51 | ED_ITS ---
HPI - Extremity Problem General: Chief complaint: Extremity Injury, Lower Stated complaint: LT ankle injury Time Seen by Provider: 11/14/24 16:21 History of Present Illness: Patient is a 74-year-old female that presents to the emergency department with left hip ankle and foot pain. Patient reports that she was walking in her backyard through the snow and missed stepped causing her ankle to roll. She reports hearing an audible pop and feeling a popping sensation in her ankle/foot. This occurred just prior to her arrival here in the emergency department. Patient not been able to bear weight on the extremity since that time. She has no open wounds Mild edema noted on the lateral malleolus. Related Data Home Medications Medication Instructions Recorded Confirmed azelaic acid 15 % topical gel 1 applic topical BID 09/05/21 11/05/24 (Finacea) atenolol 25 mg tablet 25 mg PO DAILY 06/16/24 11/05/24 Previous Rx's Medication Instructions Recorded rivaroxaban 20 mg tablet (Xarelto) See Rx Instructions .Route 06/04/24 .COMPLEX #90 tabs cholecalciferol (vitamin D3) 125 See Rx Instructions .Route 09/04/24 mcg (5,000 unit) capsule .COMPLEX #30 caps Allergies Allergy/AdvReac Type Severity Reaction Status Date / Time Iodine and Iodide Containing Allergy Unknown ALGY-Hives Verified 11/05/24 12:31 Produc ciprofloxacin Allergy Unknown Verified 11/05/24 12:31 codeine Allergy Unknown Verified 11/05/24 12:31 doxycycline Allergy Unknown Verified 11/05/24 12:31 morphine Allergy ADR-Halluci Verified 11/05/24 12:31 nating NSAIDS (Non-Steroidal Allergy ADR/ALGY-Pa Verified 11/05/24 12:31 Anti-Inflamma lpitations [id number]-[id number]-UpM Reductase Allergy ADR-Muscle Verified 11/05/24 12:31 Inhibitor Pain sulfamethoxazole Allergy Unknown Verified 11/05/24 12:31 [From Bactrim] trimethoprim [From Bactrim] Allergy Unknown Verified 11/05/24 12:31 Review of Systems General: Reports: 10 or more systems reviewed and unremarkable except in HPI and below PFSH ED PFSH: Medical History Vitamin D deficiency CAD (coronary artery disease) Compression fracture Syncope Concussion Fall Compression fracture of L1 lumbar vertebra SSS (sick sinus syndrome) HTN (hypertension) Pacemaker Cardiomyopathy Surgical History History of hysterectomy Family History Father CAD (coronary artery disease) of myocardial infarction his 70s Other Diabetes Myocardial infarction Social History Smoking and tobacco/nicotine status: never used tobacco/nicotine Alcohol intake: never Substance/Drug Use: never Physical Exam Const: COMMON NORMALS: no acute distress, average body habitus, patient oriented x3, no limitations and healthy appearing Extremity: NARRATIVE EXTREMITY EXAM: Left lower extremity: Skin is clean dry and intact Mild edema noted on the lateral malleolus Tenderness is noted to the calcaneus and lateral foot. No tenderness noted to the tibia or knee. Patient is able to dorsiflex plantarflex foot She is able to dorsiflex great toe Sensation is intact to light touch at medial, lateral, dorsal, plantar surface of the foot and first webspace DP pulses palpable and cap refills less than 3 seconds Neuro: COMMON NORMALS: patient oriented x3 Course Vital Signs: Vital signs: Vital Signs Temperature 97.5 F L 11/14/24 16:14 Pulse Rate 50 L 11/14/24 16:14 Respiratory Rate 16 11/14/24 16:14 Blood Pressure 177/91 11/14/24 16:14 Pulse Oximetry 99 11/14/24 16:14 Oxygen Delivery Me thod Room Air 11/14/24 16:14 MDM - Extremity (Nontraumatic) Medical Decision Making Patient is a 74-year-old female with left ankle and foot pain. She rolled her ankle while walking in the backyard. She underwent XR imaging of the foot and the ankle which reveals no acute fractures. The foot x-ray does reveal demineralization of the bones. Patient I discussed managing strain/sprain. I printed her information on ankle range of motion and exercises. She is to advance as tolerated. For now I am advising her RICE?rest ice compression and elevation and acetaminophen. She is on Xarelto and atenolol so we do not advise that she use nonsteroidal anti-inflammatory drugs. Patient has a walker at home so she is declining crutches or crutch training. She does have a prior history of osteoporosis/osteopenia. She has a history of a lumbar compression fracture as well. Currently she has not been treated for osteoporosis or osteopenia. Advised her to to contact her primary care for the bone health clinic for further discussion for prevention of osteoporotic complications. Patient is agreeable and all questions were answered Lab Data Radiology Impressions Ankle X-Ray 11/14/24 16:14 IMPRESSION: No acute findings. Foot X-Ray 11/14/24 16:57 IMPRESSION: Nonacute findings. All radiology interpretation(s) finalized by discharge Discharge Plan Discharge Patient Disposition: Home Clinical Impression: Ankle sprain Condition: Stable Prescriptions: No Action azelaic acid [Finacea] 15 % gel 1 applic topical BID atenolol 25 mg tablet 25 mg PO DAILY Xarelto 20 mg tablet See Rx Instructions .ROUTE .COMPLEX Qty: 90 3RF Dose Instruction: TAKE 1 TABLET BY MOUTH EVERY DAY *take with evening meal* Rx Instructions: TAKE 1 TABLET BY MOUTH EVERY DAY *take with evening meal* cholecalciferol (vitamin D3) 125 mcg (5,000 unit) capsule See Rx Instructions .ROUTE .COMPLEX Qty: 30 3RF Dose Instruction: take 1 capsule BY MOUTH every DAY Rx Instructions: 1 tablet every Saturday and every other Discharge Orders: Discharge ED (Routine); Ordered 11/14/24 Ordered By: Cinthya Arauz Referrals: Reddy Szymanski MD [Primary Care Provider] - Bree Kamara [Referring] - (call for bone health evaluation) Patient Instructions: Ankle Sprain (ED), Pain Management Activity Restrictions/Additional Instructions: RICE?rest, ice, compression, elevation along with acetaminophen will help manage her symptoms. You are allowed to bear weight as tolerated. Use a walker as needed. Work on ankle range of motion and strengthening exercises once tolerable. 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
== END 2024-11-14 18:06 | disposition home or self-care (01) ==
PROVIDERS: Emergency Provider Nurse Practitioner; PCP Family Medicine
DX: S93.402A Sprain of unspecified ligament of left ankle, initial encounter (principal); I25.10 Atherosclerotic heart disease of native coronary artery without angina pectoris; I10 Essential (primary) hypertension; Z95.0 Presence of cardiac pacemaker; W19.XXXA Unspecified fall, initial encounter
CPT/HCPCS: 73610; 73630; 99283

== ENCOUNTER → 2024-12-03 12:19 | Outpatient (BNVA) | payer MEDICARE, OTHER, SELFPAY | PROVIDERS: PCP Family Medicine; Visit Provider Family Medicine | DX: R07.9 Chest pain, unspecified (principal); R42 Dizziness and giddiness; R07.81 Pleurodynia; M72.2 Plantar fascial fibromatosis | CPT/HCPCS: 80053; 84484; 85025; 87400; 87426 ==

== ENCOUNTER 2025-02-25 12:20 | Outpatient (CLI) | payer MEDICARE, OTHER, SELFPAY ==
--- NOTE | 2025-02-25 12:25 | CTR_ITS ---
PROCEDURE INFORMATION: Exam: CT Thoracic Spine Without Contrast Exam date and time: 02/25/2025 12:41 PM Age: 74 years old Clinical indication: Pain in thoracic spine; Mid back pain between both scapula that radiates into lumbar and laterally/anteriorly to abdomen over last 2 yrs, PT states it's getting progressively worse and has a HX of compression FX in thoracic 2 yrs ago; Additional info: S32.010a - wedge compression fracture of first lumbar josiah. . . TECHNIQUE: Imaging protocol: Computed tomography of the thoracic spine without contrast. Axial, coronal and sagittal reformatted images were created and reviewed. Radiation optimization: All CT scans at this facility use at least one of these dose optimization techniques: automated exposure control; mA and/or kV adjustment per patient size (includes targeted exams where dose is matched to clinical indication); or iterative reconstruction. COMPARISON: CR XR thoracic spine 2V [id number] 09/17/2024 1:46 PM RADIATION DOSE METRICS: Total DLP (mGy-cm): 656.89 FINDINGS: Bones/joints: Osteopenia. Normal thoracic kyphosis. No CT evidence of acute fracture, dislocation or subluxation. Alignment anatomic. Vertebral body heights maintained. Multilevel spondylosis, characterized by disc space narrowing, osteophytosis, shallow disc bulges and facet/ligamentous hypertrophy. Mild spinal canal narrowing at T5-T6. No significant neural foraminal stenosis. Soft tissues: Unremarkable. CT/CT thoracic spin wo con* [id number] IMPRESSION: Mild multilevel spondylosis and degenerative disc disease.
--- NOTE | 2025-02-25 13:00 | CTR_ITS ---
PROCEDURE INFORMATION: Exam: CT Lumbar Spine Without Contrast Exam date and time: 02/25/2025 12:41 PM Age: 74 years old Clinical indication: Low back pain; Mid back pain between both scapula that radiates into lumbar and laterally/anteriorly to abdomen over last 2 yrs, PT states it's getting progressively worse and has a HX of compression FX in thoracic 2 yrs ago; Additional info: Lumbar pain TECHNIQUE: Imaging protocol: Computed tomography of the lumbar spine without contrast. Axial, coronal and sagittal reformatted images were created and reviewed. Radiation optimization: All CT scans at this facility use at least one of these dose optimization techniques: automated exposure control; mA and/or kV adjustment per patient size (includes targeted exams where dose is matched to clinical indication); or iterative reconstruction. COMPARISON: CT lumbar spine wo con* [id number] 07/18/2021 8:20 AM RADIATION DOSE METRICS: Total DLP (mGy-cm): 656.89 FINDINGS: Bones/joints: Osteopenia. Normal lumbar lordosis. No CT evidence of acute fracture, dislocation or subluxation. Alignment anatomic. Mild levoscoliosis. Mild chronic loss of height along the L1 superior endplate. Remainder of the vertebral body heights maintained. Multilevel spondylosis, characterized by disc space narrowing, osteophytosis, shallow disc bulges and facet/ligamentous hypertrophy. Mild multilevel spinal canal narrowing. No significant neural foraminal stenosis. Soft tissues: Grossly unremarkable. CT/CT lumbar spine wo con* [id number] IMPRESSION: Mild multilevel spondylosis and degenerative disc disease.
== END 2025-02-25 12:21 | disposition home or self-care (01) ==
PROVIDERS: PCP Family Medicine; Visit Provider Family Medicine
DX: M47.816 Spondylosis without myelopathy or radiculopathy, lumbar region (principal); M47.894 Other spondylosis, thoracic region; M51.34 Other intervertebral disc degeneration, thoracic region; M85.88 Other specified disorders of bone density and structure, other site; M24.28 Disorder of ligament, vertebrae; M48.04 Spinal stenosis, thoracic region; M51.369 Other intervertebral disc degeneration, lumbar region without mention of lumbar back pain or lower extremity pain; M41.86 Other forms of scoliosis, lumbar region
CPT/HCPCS: 72128; 72131

== ENCOUNTER 2025-04-01 14:14 | Outpatient (RCR) | payer MEDICARE, OTHER, SELFPAY | END 2025-04-03 23:59 | disposition home or self-care (01) | LOC: SPT 14:14 | PROVIDERS: PCP Family Medicine; Visit Provider Family Medicine | DX: M54.6 Pain in thoracic spine (principal) | CPT/HCPCS: 97110; 97161 ==

== ENCOUNTER 2025-04-04 05:00 | Outpatient (RCR) | payer MEDICARE, OTHER, SELFPAY | END 2025-05-03 23:59 | disposition home or self-care (01) | LOC: SPT 05:00 | PROVIDERS: PCP Family Medicine; Visit Provider Family Medicine | DX: M54.6 Pain in thoracic spine (principal) | CPT/HCPCS: 97110 ==

== ENCOUNTER 2025-05-04 05:00 | Outpatient (RCR) | payer MEDICARE, OTHER, SELFPAY | END 2025-06-03 23:59 | disposition home or self-care (01) | LOC: SPT 05:00 | PROVIDERS: PCP Family Medicine; Visit Provider Family Medicine | DX: M54.6 Pain in thoracic spine (principal) | CPT/HCPCS: 97110; 97150 ==

== ENCOUNTER 2025-06-01 08:18 | Outpatient (CLI) | payer MEDICARE, OTHER, SELFPAY | END 2025-06-01 08:19 | LOC: RAD 08:18 | PROVIDERS: PCP Family Medicine; Visit Provider Family Medicine | DX: R07.89 Other chest pain (principal); I48.91 Unspecified atrial fibrillation; Z79.82 Long term (current) use of aspirin; I10 Essential (primary) hypertension; I42.9 Cardiomyopathy, unspecified; I49.5 Sick sinus syndrome; Z95.0 Presence of cardiac pacemaker; Z86.73 Personal history of transient ischemic attack (TIA), and cerebral infarction without residual deficits | CPT/HCPCS: 99214 ==

== ENCOUNTER → 2025-07-01 09:57 | Outpatient (BNVA) | payer MEDICARE, OTHER, SELFPAY | PROVIDERS: PCP Family Medicine; Visit Provider Family Medicine | DX: I10 Essential (primary) hypertension (principal); I25.10 Atherosclerotic heart disease of native coronary artery without angina pectoris; I48.0 Paroxysmal atrial fibrillation; M54.9 Dorsalgia, unspecified | CPT/HCPCS: 80053; 83690; 85025; 86140 ==

== ENCOUNTER → 2025-10-07 08:08 | Outpatient (BNVA) | payer MEDICARE, OTHER, SELFPAY | PROVIDERS: PCP Family Medicine; Visit Provider Nurse Practitioner Family | DX: I48.91 Unspecified atrial fibrillation (principal); I11.0 Hypertensive heart disease with heart failure; I50.20 Unspecified systolic (congestive) heart failure; Z95.0 Presence of cardiac pacemaker; R55 Syncope and collapse | CPT/HCPCS: 99214 ==

== ENCOUNTER 2025-10-18 14:48 | Outpatient (CLI) | payer MEDICARE, OTHER, SELFPAY ==
--- NOTE | 2025-10-18 15:00 | USCV_ITS ---
Jacquie Elliott Age: 75 Gender: F : 1950 Exam Date: 10/18/2025 15:09 Ordering Phys: Linda Jaime Technologist: [place] [facility] [place]: murmur BP: 130 / 75 HR: 65 Rhythm: Sinus Technical Quality: Adequate MEASUREMENTS (Male / Female) Normal Values 2D ECHO LV Diastolic Diameter PLAX 5.4 cm 4.2 - 5.9 / 3.9 - 5.3 cm IVS Diastolic Thickness 1.1 cm 0.6 - 1.0 / 0.6 - 0.9 cm IVS Systolic Thickness 1.5 cm LVPW Diastolic Thickness 1.3 cm 0.6 - 1.0 / 0.6 - 0.9 cm LVPW Systolic Thickness 1.8 cm LVOT Diameter 2.0 cm LV Ejection Fraction 2D Teich 63.1 % LV Ejection Fraction MOD 4C 60.7 % LV Ejection Fraction MOD 2C 52.1 % LV Ejection Fraction 2C AL 51.6 % LA Diameter 3.4 cm RA Systolic Volume 4C AL 55.3 ml RA Systolic Volume 4C MOD 54.4 ml Aorta at Sinotubular Diameter 2.9 cm IVC Diameter 1.9 cm M-MODE LA Ao Ratio MM 1.4 AV Cusp Separation MM 2.0 cm DOPPLER AV Peak Velocity 114.0 cm/s LVOT Peak Velocity 83.0 cm/s AV Area Cont Eq vti 2.7 cm squared AV Area Cont Eq pk 2.3 cm squared MV Area PHT 3.1 cm squared Mitral E to A Ratio 2.5 TR Peak Velocity 140.0 cm/s TR Peak Gradient 7.8 mmHg TV Peak E Velocity 140.0 cm/s PV Peak Velocity 75.0 cm/s FINDINGS Left Ventricle Mild diffuse hypokinesis of the left ventricle with an ejection fraction of around 45% Right Ventricle Possibly of normal size and ejection fraction Right Atrium Mildly increased right atrial size. Left Atrium Mildly increased left atrial size. IA Septum Appears to be intact Mitral Valve Moderate mitral valve regurgitation. Aortic Valve No gross abnormalities noted Tricuspid Valve No gross abnormalities noted Pulmonic Valve No gross abnormalities noted Pericardium No pericardial effusion. Aorta Normal aortic annulus size. IVC Normal inferior vena cava. CONCLUSIONS Mild diffuse hypokinesis of the left ventricle with an ejection fraction of around 45%. Mild biatrial enlargement Moderate mitral valve regurgitation. There is no pericardial effusion. There are no intracardiac masses. Compared to the study from 03/10/2024, there may not be a significant change. Dr Hortencia Murcia MD [facility] (Electronically Signed) Final Date: 18 October 2025 21:54 S
== END 2025-10-18 14:49 | disposition home or self-care (01) ==
LOC: RAD 14:49
PROVIDERS: PCP Family Medicine; Visit Provider Nurse Practitioner Family
DX: I50.20 Unspecified systolic (congestive) heart failure (principal); R01.1 Cardiac murmur, unspecified; I51.89 Other ill-defined heart diseases; I51.7 Cardiomegaly; I34.0 Nonrheumatic mitral (valve) insufficiency
CPT/HCPCS: 93306